=== PATIENT | male | born 1960 | race Caucasian/White ===

== ENCOUNTER → 2024-07-01 13:57 | Outpatient (REF) | payer OTHER, SELFPAY | LOC: RAD 13:57 | PROVIDERS: ATTENDING PHYSICIAN Psychiatry & Neurology Neurology; FAMILY PHYSICIAN Family Medicine | DX: H49.01 Third [oculomotor] nerve palsy, right eye (principal) | CPT/HCPCS: 93880 ==

== ENCOUNTER → 2024-08-05 10:12 | Outpatient (REF) | payer OTHER, SELFPAY | LOC: PAVMRI 10:12 | PROVIDERS: ATTENDING PHYSICIAN Psychiatry & Neurology Neurology; FAMILY PHYSICIAN Family Medicine | DX: H49.01 Third [oculomotor] nerve palsy, right eye (principal) | CPT/HCPCS: 70553; A9575 ==

== ENCOUNTER 2025-02-09 22:28 | Inpatient (IN) | payer OTHER, SELFPAY ==
[2025-02-09 20:20] VITALS: BP 145/67
[2025-02-09 20:57] LABS: Hematocrit 36.7 % (39.0-52.0); Hemoglobin 12.6 g/dL (13.0-18.0); Mean Corp Hgb Conc. 34.3 g/dL (33.0-37.0); Mean Corpuscular Volume 88.6 fL (80.0-94.0); Nucleated Red Blood Cells % 0 % (-); Platelet Count 198 10^3/uL (130-400); Red Cell Dist. Width 14.1 % (11.5-14.5)
--- NOTE | 2025-02-09 21:02 | HPS.HSE ---
Family Physician
-
Family Physician:
Chief Complaint
-
Dizzyness, near syncope, nausea.
History of Present Illness
64 y/o male with IDDM, HTN and HLD presenting with an episode of dizzyness/near syncope. The patient reports that he has been feeling poorly, including an episode of GI upset including vomiting one week ago during vacation in [place]. The
patient also suffered from a tooth ache which was somewhat severe on vacation. He saw a dentist in [place], who recommended extracting the tooth or a course of penicillin until he returned to [place]. The patient opted for PCN and returned to [place]. He
underwent tooth extraction this afternoon. As the local anesthesia was wearing off, the patient developed some nausea and decided to walk upstairs to lay down. While ascending the stairs, he reports feeling dizzy and falling to the ground. He
denies losing consciousness. Given his constellation of symptoms, he elected to call EMS and come to [facility] ER. In the ER, EKG shows inferior/inferolateral STEMI. The patient denies explicit anginal chest pain. He reports very mild discomfort with
deep inspiration. He denies prior cardiac history.
Medical History
Past Medical History
Past Medical History: Reports HTN, Hypercholesterolemia and IDDM
Past Surgical History: Reports None
Social History
Tobacco: Non-smoker
Alcohol: Occasional
Drug: None
Personal:
Living: With Family
Family History
Family History: Not pertinent
Allergies / Home Medications
Allergies reflects when Allergies were last updated in [employer].
Home Medications with original date entered in [employer]
Allergy/Medication List:
Home Medications:
Aspirin 81 mg daily.
Atorvastatin 80 mg daily.
Insulin.
Lisinopril 5 mg daily.
Allergies:
Metformin.
Review of Systems
-
History Source: Patient and Family
Constitutional: Reports Fatigue
EENT: Reports Other (Tooth ache, s/p recent extraction (earlier today).)
Respiratory: Reports No Symptoms
Cardiac: Reports No Symptoms
Abdomen/GI: Reports Nausea and Vomiting
: Reports No Symptoms
Musculoskeletal: Reports No Symptoms
Skin: Reports No Symptoms
Neurological: Reports Dizzy
Physical Exam
Vital Signs
Vital Signs
Temp Pulse Resp BP Pulse Ox
37.1 C 58 16 145/67 97
02/09/25 20:20 02/09/25 20:20 02/09/25 20:20 02/09/25 20:20 02/09/25 20:20
Physical Exam
General: Well Developed, Well Nourished, No Apparent Distress, Comfortable, Conversant and Obese
HEENT: NormoCephalic, Anicteric, Moist mucous membranes, Atraumatic, Good Dentition (Recently removed tooth [ ].), PERRLA, Glandorf Conjunctivae, No Ptosis, Nose Appears Normal and Ears Appear Normal
Respiratory: Clear and Non Labored Respirations
Cardiac: S1/S2 and Regular Rhythm
Breast: Deferred by me
GI: Soft, Non Tender, Non Distended, Normal Bowel Sounds and No Hepatosplenomegaly
Rectal: Deferred by Provider
Genito-urinary: Deferred by me
Musculoskeletal: No Clubbing, No Cyanosis and No Edema
Skin: Warm and Dry
Neuro: AO x 3, No Motor Deficits and Nonfocal/grossly intact
Hematologic/Lymphatic: No Lymphadenopathy
Psych: Calm and Intact Judgment/Insight
Laboratory Results
-
02/09/25 20:47
Data Reviewed
-
Diagnostic Radiology: Report Reviewed by me
Medical Tests (Nuc Med, Echo, EKG etc): Image Personally Visualized and interpreted and Report Reviewed by me
Lab Data: Labs Reviewed by me
Impression/Plan
-
Impression/Plan: 64 y/o male with HTN, HLD, IDDM presenting with dizzyness/near syncope and EKG showing inferior/inferolateral STEMI.
#STEMI
-Acute, threat to life.
-Chest pain free but diabetes may mask symptoms.
-Heparin, aspirin given in ER.
-Plan for emergent coronary angiography with ad hoc PCI.
-Consent is signed and on the chart.
-Further instructions to follow.
#Dizzyness/near syncope
-Acute, unclear etiology.
-Possibly vestibular from recent dental instrumentation vs. aborted VT/VF?
-Monitor on telemetry.
#HTN
-Chronic.
-Restart home antihypertensives when indicated.
#HLD
-Chronic.
-Fasting lipid panel.
-Continue atorvastatin 80 mg daily.
-Goal LDL < 55.
#IDDM2
-Chronic.
-Large insulin dose required.
-Convert to formulary post cath.
[2025-02-09 21:07] LABS: INR 1.05; PT 14.2 Sec (11.4-14.6)
[2025-02-09 21:08] LABS: APTT 29.9 Sec (23.4-35.0)
[2025-02-09 21:15] LABS: ALT (SGPT) 82 U/L (0-50); AST (SGOT) 54 U/L (17-59); Albumin 3.8 g/dl (3.5-5.0); Alkaline Phosphatase 62 U/L (38-126); Blood Urea Nitrogen 19 mg/dl (9-20); Calcium 8.7 mg/dl (8.4-10.2); Carbon Dioxide 25 mmol/L (22-30); Chloride 104 mmol/L (98-107); Glucose 115 mg/dl (70-99); Potassium 4.1 mmol/L (3.5-5.1); Sodium 134 mmol/L (135-145); Total Protein 6.3 g/dl (6.3-8.2); eGFR > 60.00
[2025-02-09 21:29] LABS: Troponin I 5.300 ng/ml
--- NOTE | 2025-02-09 21:34 | ED.GENMED ---
History of Present Illness
General
Chief Complaint: Fainting/Passed Out
Time Seen by Provider: 02/09/25 20:47
History of Present Illness
History of Present Illness:
64-year-old male with history of diabetes, hypertension, hyperlipidemia, and TIA presenting to the emergency department after syncopal episode. Patient reports that he has generally been feeling unwell in the past week, lightheaded, dizzy,
nauseous. He had a tooth extracted earlier today, left lower mandible region. He denies complications from the extraction. Around 7 PM he went upstairs, was feeling lightheaded and fell to the ground, did strike his head, however denies any true
loss of consciousness. Denies any known history of cardiac disease. Does report some chest pain with deep inspiration, left chest. Denies difficulty breathing. Denies any fevers. He called his primary care doctor advised to come to the hospital
given the report of the fall and head strike. No additional history obtained at this time
Phy Exam
Physical Exam
Physical Exam:
General: Well-appearing, no clinical signs of dehydration, nontoxic and in no acute distress
HEENT: protecting airway, status post tooth extraction to left lower mandible, no bleeding
Neck: appears supple
CV: Normal heart rate, regular rhythm
Resp: No accessory muscle use, no increased work of breathing, lungs clear to auscultation bilaterally
Abd: Soft and non-distended, no tenderness to palpation
Extremities: No deformities, no swelling
Neuro: alert, no focal neurologic deficit
: deferred
Rectal: deferred
Psych: Normal affect
Skin: Intact
Course
Orders/Labs/Results
Orders:
Orders
02/09/25 20:28
Electrocardiogram (*1) Urgent
Reason for Study: Vertigo / Dizzy
02/09/25 20:29
EKG- Treatment ONCE
02/09/25 20:47
Complete Blood Count/With Diff Urgent
Comprehensive Metabolic Panel Urgent
Protime/PTT Stat
Troponin I Urgent
Abnormal Lab Results
02/09/25
20:47
WBC 12.9 H 10^3/uL
(4.8-10.8)
RBC 4.14 L 10^6/uL
(4.70-6.10)
Hgb 12.6 L g/dL
(13.0-18.0)
Hct 36.7 L %
(39.0-52.0)
Abs Immat Gran (auto) 0.1 H 10^3/uL
(0-0.05)
Absolute Neuts (auto) 10.8 H 10^3/uL
(1.4-6.5)
Absolute Monos (auto) 0.8 H 10^3/uL
(0.1-0.6)
Neutrophils % 83.7 H %
(42.2-75.2)
Lymphocytes % 9.1 L %
(20.5-51.1)
Sodium 134 L mmol/L
(135-145)
Glucose 115 H mg/dl
(70-99)
Total Bilirubin 1.6 H mg/dl
(0.2-1.3)
ALT 82 H U/L
(0-50)
Troponin I 5.300 H* ng/ml
02/09/25 20:47
02/09/25 20:47
Vital Signs
Initial and Last Documented VS:
Initial Vital Signs
Temp Pulse Resp BP Pulse Ox
98.7 F 58 16 145/67 97
02/09/25 20:20 02/09/25 20:20 02/09/25 20:20 02/09/25 20:20 02/09/25 20:20
Last Documented Vital Signs
Temp Pulse Resp BP Pulse Ox
98.7 F 58 16 145/67 97
02/09/25 20:20 02/09/25 20:20 02/09/25 20:20 02/09/25 20:20 02/09/25 20:20
MDM/Problems Addressed
MDM/Problems Addressed:
64-year-old male with history of diabetes, hypertension, hyperlipidemia, TIA presenting after syncopal episode with lightheadedness, dizziness, chest pain with deep inspiration. Vital signs on arrival are normal.
EKG obtained in triage given patient's presenting complaints. EKG was immediately interpreted by me. Concern for acute STEMI. Patient brought back to examination room and STEMI alert was called. Cardiology soon at bedside. Aspirin administered
as well as heparin. No signs of head trauma, no focal neurologic deficits. Does report that he struck his head prior to arrival, however without present concern for acute intracranial abnormality. More concerning and pressing issue is patient's
acute STEMI. Plan for cardiac intervention and admission.
*Pulse Oximetry
SaO2: 97
Oxygen Mode of Delivery: Room air
Patient hypoxic: no
*EKG
Interpreted by ED Provider?: Yes
EKG Intrepretation Date: 02/09/25
EKG Intrepretation Time: 21:36
Interpretation: abnormal (inferior STEMI)
Heart Rate: 58
Rate: bradycardiac
Rhythm: sinus
[place]: normal axis
Interval: normal interval
QRS Pattern: normal QRS
Ischemia: ST elevation
*Critical Care Note
Total Time (30-74mins, 75-104mins- exclusive of procedures): Not Applicable
ED Attending Note
-
Portions of this chart may have been created with voice recognition software.� Occasional wrong word or��sound alike� substitutions may have occurred due to the inherent limitations of voice recognition software.
Discharge Plan
Departure
Patient Disposition: Admit
Date of Disposition: 02/09/25
Time of Disposition: 20:57
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
Presentation/result/management discussed w/ accepting MD/DO: cardiology
Patient with high blood pressure during this ER visit?: No
Condition: Critical
Discharge Problem:
ST elevation (STEMI) myocardial infarction, Syncope
Prescriptions:
No Action
atorvastatin 80 mg Tablet
80 mg PO DAILY
insulin aspart U-100 [Novolog U-100 Insulin aspart] 100 unit/mL Solution
1 sliding scale dose SC AC
Rx Instructions:
14units for breakfast, 14units lunch, 26units diner
aspirin [Adult Low Dose Aspirin] 81 mg Tablet
81 mg PO DAILY
lisinopril 5 mg Tablet
5 mg PO DAILY
insulin degludec [Tresiba FlexTouch U-100] 100 unit/mL (3 mL) Insulin Pen
96 unit SC DAILY
Interventions
Interventions:
*Risk Screen - Suicide Last Done: 02/09/25 20:20
*General Assessment Last Done: 02/09/25 20:20
*Neglect/Abuse Screening Last Done: 02/09/25 20:20
*ED COVID-19 Vaccine History Last Done: 02/09/25 20:20
*Nursing Disposition Last Done: 02/09/25 21:26
ED- Cardiac Assessment Last Done: 02/09/25 21:00
ED- Neurological Assessment Last Done: 02/09/25 21:00
Discharge Date and Time
Print Language: [place]
[2025-02-09 21:44] LABS: ACT-LR - POC 340 Seconds (116-155)
[2025-02-09 22:04] LABS: ACT-LR - POC 239 Seconds (116-155)
[2025-02-09 22:20] LABS: ACT-LR - POC 339 Seconds (116-155)
--- NOTE | 2025-02-09 22:38 | ITS.CL.ANGIO ---
[employer] [facility] - Angioplasty
Angioplasty
Procedure Report:
CARDIAC CATHETERIZATION REPORT
Date of Procedure: 02/09/2025
Referring: Emergency room.
INDICATION: Inferior ST elevation myocardial infarction
PROCEDURE:
1. Left heart catheterization.
2. Coronary angiography.
3. Successful PCI of the culprit proximal RCA occlusion.
4. Successful IVUS guided PCI of the proximal/ostial RCA.
A total of 58 minutes of procedural/moderate sedation was utilized. An independent medical specialist was present to assist with and help manage the patient's level of consciousness and physiologic status.
ACCESS:
1. 6 Swazi right radial artery using a modified Seldinger technique.
CATHETERS:
1. 5 Swazi JR4.
2. 5 Swazi JL 3 point.
3. 6 Swazi JR 4 guiding catheter.
HEMODYNAMIC DATA
Weight (kg): 109.2
AO (s/d/x, mmHg): 126/73/93
LV (s/x mmHg): 127/23
LEFT VENTRICULOGRAPHY: Not performed.
CORONARY ANGIOGRAPHY
Dominance: Right.
Left Main: Normal size, bifurcating vessel. There is no coronary artery disease
LAD: Normal size vessel giving rise to 1 large diagonal. There is a 70+% lesion in the proximal LAD.
[place]amus: Congenitally absent.
Circumflex: Normal size, nondominant vessel that is essentially a single large obtuse marginal with an upper and lower branch. There is a 40% lesion in the proximal circumflex. There are luminal irregularities in the lower branch of the obtuse
marginal.
RCA: Normal size, dominant vessel. There is a 70% lesion in the proximal RCA extending to the ostium that is densely calcified. The proximal RCA is acutely, thrombotically occluded. There is a densely calcified, 30% lesion in the distal RCA at
the crux. The RPDA and right posterolateral arcade are moderate to severely and diffusely diseased.
INTERVENTION(S)
1. Successful PCI of the acute, thrombotic 100% occlusion of the proximal RCA (Medtronic [place] 3.0 x 18 DARYL, postdilated with a 3.0 NC balloon followed by 3.25 NC balloon), with reduction in stenosis to 0%, restoring BETTE-3 flow.
2. Successful PCI of the densely calcified 70% proximal RCA lesion extending to the ostium (Medtronic [place] 3.0 x 26 DARYL overlapping with the more distal stent, postdilated with a 3.0 NC balloon followed by a 3.25 NC balloon), with
reduction in stenosis to 0%, maintaining BETTE-3 flow.
Narrative:
The decision was made to proceed with percutaneous coronary intervention. The diagnostic catheter was removed over a wire and a 6Fr JR4 guiding catheter was advanced to the aortic root and seated in the right coronary artery. Additional heparin was
given and a Power Turn Flex wire was advanced into the distal RCA. The acute, thrombotic 100% proximal RCA lesion was predilated with a 2.0 x 12 semi-compliant balloon to 12 cecy, restoring BETTE-3 flow. The semi-compliant balloon was removed and a
Medtronic L[place] 3.0 x 18 drug-eluting stent was advanced. Unfortunately, the stent would not advance into the lesion demonstrating that further predilation was required.
A 3.0 x 12 noncompliant balloon was advanced over the wire and into the proximal RCA. Unfortunately, this too would not cross the lesion. This balloon was withdrawn and a 3.0 x 12 semicompliant balloon was advanced over the wire. Once again, the
the balloon would not advance beyond the lesion. This balloon was withdrawn and a 6 Swazi GuideLiner was advanced over the 2.0 x 12 semicompliant balloon. This balloon was able to traverse the lesion which was dilated again and the GuideLiner was
advanced into good position. With the GuideLiner in place, the 2.0 x 12 semicompliant balloon was withdrawn and the 3.0 x 12 semicompliant balloon was advanced. The lesion was dilated to 12 cecy. The semicompliant balloon was withdrawn and the 3.0
x 18 DARYL was readvanced into the lesion. We were satisfied with the position of our stent, the stent was deployed at 12 cecy. The stent balloon was withdrawn and the 3.0 x 12 NC balloon was readvanced. The stent was postdilated to 15 cecy. The
noncompliant balloon was withdrawn.
The decision was made to perform intracoronary imaging. An IVUS catheter was advanced through the guiding catheter and into the ostium of the artery. Ring down was performed once the imaging crystal was no longer inside of the guiding catheter. The
IVUS catheter was advanced into the proximal RCA, but would not cross beyond the stent threshold. Intravascular ultrasound was performed in a retrograde fashion using a slow pullback. Intracoronary imaging demonstrated severe atherosclerosis within
the proximal RCA including a significant lesion near the ostium of the vessel.
The IVUS catheter was withdrawn. The 3.0 x 12 noncompliant balloon was readvanced into the proximal RCA. The RCA proximal to the stent was dilated to 12 cecy. After completing dilation of the vessel, the GuideLiner was readvanced over the
noncompliant balloon and a sheathing technique.
A Medtronic [place] 3.0 x 26 drug-eluting stent was advanced into the RCA. The GuideLiner was pulled back and meticulous care was taken while positioning the stent. We were satisfied that the distal aspect of the stent was overlapping with
the proximal aspect of the first stent and the proximal aspect of the stent was covering the ostial RCA lesion, the stent was deployed at 12 cecy. The stent balloon was removed. A 3.25 x 12 noncompliant balloon was advanced into the stent and the
entire stented segment was postdilated to 18 atmospheres. The ostial portion of the stent was postdilated to 20 cecy.
Angiography was performed in orthogonal views, confirming good stent expansion and an excellent angiographic result. The coronary wire was withdrawn and the guide was disengaged from the artery. The catheter was removed over a standard J-wire.
Closure Device: Vascular band.
Radiation (mGy): 1050.32
DAP (cm2.Gy): 65.8950
Fluoroscopy time (minutes): 14.9
CONCLUSIONS
1. Right dominant circulation with a 70+% lesion in the proximal LAD, 40% lesion in the proximal circumflex, and acute, thrombotic occlusion of the proximal RCA status post successful PCI (Medtronic [place] 3.0 x 18 DARYL, postdilated with a
3.0 and 3.25 NC balloon) and a densely calcified 70% lesion in the proximal RCA extending to the ostium, status post successful IVUS guided PCI (Medtronic [place] 3.0 x 26 DARYL, postdilated with a 3.0 and 3.25 NC balloon) with reduction in both
stenoses to 0%, restoring BETTE-3 flow.
2. Moderately elevated filling pressures (LVEDP = 23 mmHg at 109.2 kg).
RECOMMENDATIONS:
1. Expectant management after cardiac catheterization via right radial approach.
2. Limited weight bearing on the right for one week.
3. Dual antiplatelet therapy with aspirin anticoagulant for at least 12 months, followed by aspirin indefinitely.
4. Aggressive secondary prevention with high-dose, high potency statin. Goal LDL <55.
5. OMT/GDMT as hemodynamics will tolerate.
6. Echocardiogram ordered and pending.
7. Referral to cardiac rehab.
8. Tentative plan to return to the cardiac [facility] in 48 hours for reevaluation and likely PCI of the proximal LAD lesion.
Copy to: Landon Crawford D.O.
Landon Crawford DO, FACC, FACP
[2025-02-09 22:45] VITALS: BP 170/89
[2025-02-09 22:46] LABS: Glucose - Point of Care 136 mg/dl (70-99)
[2025-02-09 23:00] VITALS: BP 169/94
[2025-02-09 23:15] VITALS: BP 165/100
[2025-02-09 23:30] VITALS: BP 163/98
--- NOTE | 2025-02-09 23:52 | PTCARENOTE ---
Pt rec'd post cath awake,alert tearful. Seen by Dr Crawford in room to explain findings of cath. awake,alert no c/o dizziness or nausea. Pt had tooth extracted this morning bottom left denies pain. Sinus on telemetry with occ pvc's noted. no c/o pain
in back of head from earlier fall , no bruising noted.
right radial site with R band in place. weak but palpable pulse with no active bleeding or hematoma noted. c/o numbness in right thumb.
call [facility] within reach
[2025-02-10] VITALS (8 sets, daily range): BP systolic 124–172; BP diastolic 60–93
[2025-02-10 02:59] LABS: Hematocrit 37.3 % (39.0-52.0); Hemoglobin 12.6 g/dL (13.0-18.0); Mean Corp Hgb Conc. 33.8 g/dL (33.0-37.0); Mean Corpuscular Volume 88.6 fL (80.0-94.0); Platelet Count 200 10^3/uL (130-400); Red Cell Dist. Width 14.0 % (11.5-14.5)
[2025-02-10 03:36] LABS: Blood Urea Nitrogen 20 mg/dl (9-20); Calcium 9.2 mg/dl (8.4-10.2); Carbon Dioxide 24 mmol/L (22-30); Chloride 105 mmol/L (98-107); Glucose 181 mg/dl (70-99); Potassium 4.2 mmol/L (3.5-5.1); Sodium 135 mmol/L (135-145); eGFR > 60.00
[2025-02-10 03:43] LABS: Troponin I 13.800 ng/ml
[2025-02-10 04:22] LABS: Hepatitis C Antibody Negative (Negative)
[2025-02-10] MEDS: TYLENOL 650 MG PO ×4 (05:13→20:19)
[2025-02-10 08:25] LABS: Glucose - Point of Care 123 mg/dl (70-99)
[2025-02-10] MEDS: LIPITOR 80 MG PO (08:43)
[2025-02-10] MEDS: NOVOLOG FLEXPEN-MODERATE RESISTANCE SC ×2 (08:43→12:59)
[2025-02-10] MEDS: LANTUS 0.96 UNITS SC (08:43)
[2025-02-10] MEDS: TOPROL XL 25 MG PO (08:44)
[2025-02-10] MEDS: LOW STRENGTH ASPIRIN 81 MG PO (08:44)
[2025-02-10] MEDS: BRILINTA 90 MG PO ×2 (08:44→20:20)
[2025-02-10 09:34] LABS: Troponin I 11.100 ng/ml
--- NOTE | 2025-02-10 09:43 | W.PN.CD ---
Today's Communication / Plan
-
Echo pending
monitor tele
Impression / Plan
-
Impression/Plan: 64 y/o male with HTN, HLD, IDDM presenting with dizziness/near syncope and EKG showing inferior/inferolateral STEMI.
#STEMI s/p DARYL to RCA
- DAPT
- LDL < 55 atorva 80 rx'ed
- echo pending
-cardiac rehab referral
- Dr Crawford will decide on possible intervention of LAD
#Dizziness/near syncope
-Acute, unclear etiology--> so far no recurrence
-Possibly vestibular from recent dental instrumentation vs. aborted VT/VF?
-Monitor on telemetry.
#HTN
-Chronic.
-restart lisinopril 5
- metop xl 25 mg
#HLD
-Chronic.
-Fasting lipid panel pending
-Continue atorvastatin 80 mg daily.
-Goal LDL < 55.
#IDDM2
-Chronic.
-Large insulin dose required.
-Convert to formulary post cath.
Subjective: feeling improved
Physical Exam
Vital Signs/Labs
Vital Signs
Temp Pulse Resp BP Pulse Ox
98.7 F 72 16 149/78 94
02/10/25 07:34 02/10/25 08:44 02/10/25 07:34 02/10/25 08:44 02/10/25 07:34
02/09/25 02/10/25 02/11/25
06:59 06:59 06:59
Actual Weight 231 lb 11.293 oz
02/10/25 02:47
02/10/25 02:47
PT 14.2 Sec (11.4-14.6) 02/09/25 20:47
INR 1.05 02/09/25 20:47
APTT 29.9 Sec (23.4-35.0) 02/09/25 20:47
LAB Results
02/09/25 02/09/25 02/10/25
20:47 22:30 02:47
Troponin I 5.300 H* Cancelled 13.800 H* D
02/10/25
08:52
Troponin I 11.100 H*
Physical Exam
Constitutional: No acute distress and Comfortable
EENT: Anicteric
Cardiovascular: Rhythm & rate is regular and Pedal edema is absent
Respiratory: Respiratory effort normal and Lungs clear to auscul.
GI: Soft
Neuro/Psych: AO x 3
Other: Cath Site (c/d/i 2+ pulse)
Data Reviewed
-
Date of Service: February 10, 2025
Medical Decision Making: Reviewed Test Results
EKG: Tracing Personally Visualized and interpreted (sr)
Echo: Tracing Personally Visualized and interpreted
Labs: Labs Reviewed by me
--- NOTE | 2025-02-10 09:54 | CM ---
Reviewed chart. Met with Mr. Green to review discharge plans. He states prior to admission he resides with his spouse in a spilt level home with three steps to enter. He states he has seven steps to get to bedroom/full bathroom. He states he
has six steps to get to the lower level. He states prior to admission he was independent with ambulation and adls. He states he stuart not have any DME in the home. He states he has a prescription plan. Medical work-up in progress The discharge plan
is to return home with his spouse when medically stable.
[2025-02-10] MEDS: ZESTRIL 5 MG PO (09:59)
[2025-02-10 10:16] LABS: Glycohemoglobin (HgbA1c) 9.2 % (4.0-5.6)
--- NOTE | 2025-02-10 10:22 | PTCARENOTE ---
received patient this am in bed, instructed patient that he is a fall risk since he fell at home and to use call [facility] whenever he wants to get OOB, patient verbalizes understanding. monitor shows NSR, VSS. troponin drawn 11.1, trending down. left
lower tooth was extracted yesterday, stitch remains intact, no bleeding, Tylenol po given for discomfort. no straws being used. I asked the patient several times to confirm the amount of insulin that he takes in am, patient stated, 'yes, I have been
taking that dose every morning.' right radial dsg. D/I ,distal pulse palpable.
--- NOTE | 2025-02-10 11:40 | PTCARENOTE ---
echo completed in department.
[2025-02-10 12:32] LABS: Glucose - Point of Care 122 mg/dl (70-99)
[2025-02-10 17:10] LABS: Glucose - Point of Care 176 mg/dl (70-99)
[2025-02-10] MEDS: NOVOLOG FLEXPEN-MODERATE RESISTANCE 1 UNITS SC (17:10)
[2025-02-10 22:02] LABS: Glucose - Point of Care 215 mg/dl (70-99)
[2025-02-11] VITALS (9 sets, daily range): BP systolic 135–178; BP diastolic 67–96
--- NOTE | 2025-02-11 01:00 | PTCARENOTE ---
Received pt at change of shift resting in bed. SR on tele, HR in the 60's. pt denies any CP or SOB. Right radial site C.D.I. No bleeding or hematoma noted at this time. pt educated on NPO status after midnight. pt verbalizes understanding. PRN
Tylenol administered per pt request for 3/10 pain from left lower tooth extraction. Educated pt to call RN with any questions/concerns. Call [facility] within reach.
[2025-02-11] MEDS: TYLENOL 650 MG PO ×4 (03:28→20:14)
[2025-02-11 04:19] LABS: Hematocrit 35.6 % (39.0-52.0); Hemoglobin 12.0 g/dL (13.0-18.0); Mean Corp Hgb Conc. 33.7 g/dL (33.0-37.0); Mean Corpuscular Volume 88.3 fL (80.0-94.0); Platelet Count 198 10^3/uL (130-400); Red Cell Dist. Width 14.1 % (11.5-14.5)
[2025-02-11 04:42] LABS: Blood Urea Nitrogen 16 mg/dl (9-20); Calcium 8.9 mg/dl (8.4-10.2); Carbon Dioxide 25 mmol/L (22-30); Chloride 108 mmol/L (98-107); Estimated Creatinine Clearance 89 ml/min; Glucose 138 mg/dl (70-99); HDL Cholesterol 31 mg/dl; LDL Cholesterol, Calculated 157 mg/dl; Potassium 4.1 mmol/L (3.5-5.1); Sodium 136 mmol/L (135-145); Very Low Density Lipoprotein 24 mg/dl (0-30); eGFR > 60.00
[2025-02-11 07:05] LABS: Glucose - Point of Care 123 mg/dl (70-99)
--- NOTE | 2025-02-11 07:31 | W.PN.CD ---
Today's Communication / Plan
-
Start ezetimibe 10 mg daily.
D/C metoprolol.
Start carvedilol 3.125 mg BID.
NPO.
NADIYA.
Impression / Plan
-
Impression/Plan: 64 y/o male with HTN, HLD, IDDM presenting with dizziness/near syncope and EKG showing inferior/inferolateral STEMI.
#STEMI
-Acute.
-S/P overlapping Xience Skypoint 3.0 x 18, 3.0 x 23 DARYL to proximal/ostial RCA, post dilated with 3.25 NCB with reduction in stenosis to 0%, restoring BETTE III flow.
-Troponin peaked at 13.8.
-Echo shows hypokinesis of inferior base, low normal LVEF (50-55%).
-DAPT with ASA/Ticagrelor x 12 months.
#CAD
-Chronic, progressive.
-Cath shows residual 70+% lesion in the pLAD, 40% lesion in the proximal LCx. Further review revealed an 80-90% lesion in the LCx, not previously appreciated.
-High dose, high potency statin. Goal LDL < 55.
-Will review with CTS. No role for repeat cath given 2V CAD. The question is now method of revascularization (PCI, MIDCAB + PCI, traditional CABG). This will be highly dependent on NADIYA findings.
#Mitral valve echo density
-New diagnosis.
-NADIYA.
-Review with CTS.
#Dizziness/near syncope
-Acute, unclear etiology--> so far no recurrence
-Possibly vestibular from recent dental instrumentation vs. aborted VT/VF?
-Monitor on telemetry.
#HTN
-Chronic, mildly uncontrolled.
-Continue lisinopril.
-Convert metoprolol to carvedilol 3.125 mg BID.
#HLD
-Chronic.
-Total cholesterol = 212, LDL = 157, HDL = 31, Triglycerides = 121.
-Continue atorvastatin 80 mg daily. Add ezetimibe. He will need outpatient PCSK9i.
-Goal LDL < 55.
#IDDM2
-Chronic.
-HbA1c = 9.2%
-Large insulin dose required.
-He would benefit from GLP-1 analog at discharge.
Subjective/Interval History:
Feels well.
Echo shows a hypermobile echo density on the mitral apparatus.
DATA:
Cardiac Catheterization/PCI, 02/09/2025:
CONCLUSIONS
1. Right dominant circulation with a 70+% lesion in the proximal LAD, 40% lesion in the proximal circumflex, and acute, thrombotic occlusion of the proximal RCA status post successful PCI (Medtronic [place] 3.0 x 18 DARYL, postdilated with a
3.0 and 3.25 NC balloon) and a densely calcified 70% lesion in the proximal RCA extending to the ostium, status post successful IVUS guided PCI (Medtronic [place] 3.0 x 26 DARYL, postdilated with a 3.0 and 3.25 NC balloon) with reduction in both
stenoses to 0%, restoring BETTE-3 flow.
2. Moderately elevated filling pressures (LVEDP = 23 mmHg at 109.2 kg).
TTE, 02/11/2028:
CONCLUSIONS
Low normal left ventricular systolic function. LVEF 50-55%.
Hypokinesis of the basal to mid inferior, inferolateral and inferoseptal chinchilla.
Focal calcification of the anterior mitral valve leaflet. Hypermobile
echodensity attached to the chordal apparatus (view 45).
Aortic sclerosis.
No prior study available for comparison.
Physical Exam
Vital Signs/Labs
Vital Signs
Temp Pulse Resp BP Pulse Ox
37.1 C 67 16 156/85 97
02/11/25 06:58 02/11/25 06:58 02/11/25 06:58 02/11/25 03:26 02/11/25 06:58
02/09/25 02/10/25 02/11/25
11:59 11:59 11:59
Actual Weight 105.1 kg
02/11/25 04:06
02/11/25 04:06
PT 14.2 Sec (11.4-14.6) 02/09/25 20:47
INR 1.05 02/09/25 20:47
APTT 29.9 Sec (23.4-35.0) 02/09/25 20:47
Triglycerides 121 mg/dl (10-149) 02/11/25 04:06
LDL Cholesterol, Calc 157 mg/dl 02/11/25 04:06
VLDL Cholesterol, Calc 24 mg/dl (0-30) 02/11/25 04:06
HDL Cholesterol 31 mg/dl 02/11/25 04:06
LAB Results
02/09/25 02/09/25 02/10/25
20:47 22:30 02:47
Troponin I 5.300 H* Cancelled 13.800 H* D
02/10/25 02/10/25 02/10/25
08:52 14:30 20:30
Troponin I 11.100 H* Cancelled Cancelled
Physical Exam
Constitutional: No acute distress and Comfortable
EENT: Anicteric and Moist mucous membranes
Cardiovascular: Rhythm & rate is regular, Pedal edema is absent, JVD pressure is normal, S1S2 is normal and Murmur/rub/gallop absent
Respiratory: Respiratory effort normal, Lungs clear to auscul., Wheeze Absent, Crackles Absent and Rhonchi Absent
GI: Soft, Distention absent, Flat, Non tender and Normal bowel sounds
Neuro/Psych: AO x 3
Other: Cath Site (Right radial access site is C/D/I.)
Data Reviewed
-
Date of Service: February 11, 2025
Medical Decision Making: Reviewed Test Results, Independent Historian Assessment and Test Interpretation
EKG: Tracing Personally Visualized and interpreted and Report Reviewed by me
Echo: Tracing Personally Visualized and interpreted and Report Reviewed by me
X-Ray/CT/US/MRI/NUC/PET: Image Personally Visualized and interpreted, Report Reviewed by me and Discussed with Physician
Medical Tests (PFT, Pathology etc): Image Personally Visualized and interpreted, Report Reviewed by me, Discussed with Physician and Discussed with Patient
Labs: Labs Reviewed by me
[2025-02-11] MEDS: NOVOLOG FLEXPEN-MODERATE RESISTANCE SC ×3 (08:00→17:37)
--- NOTE | 2025-02-11 10:54 | W.PN.UPDATE ---
Update Note
Progress Note Update
-NADIYA today was negative for endocarditis.
[2025-02-11] MEDS: LIPITOR 80 MG PO (11:00)
[2025-02-11] MEDS: COREG 3.125 MG PO ×2 (11:01→20:14)
[2025-02-11] MEDS: LOW STRENGTH ASPIRIN 81 MG PO (11:01)
[2025-02-11] MEDS: ZETIA 10 MG PO (11:01)
[2025-02-11] MEDS: BRILINTA 90 MG PO ×2 (11:02→20:14)
--- NOTE | 2025-02-11 11:03 | PN.DE.MGMTRT ---
Insulin Management
- -
02/11/2025 Diabetes Management Consult
Patient admitted 02/09 with dizziness, near syncope, nausea - inferior/inferolater STEMI. Diabetes Management consult 02/11/2025. PMH diabetes, HTN, HLD. Prior to admission was taking Tresiba 92 units daily in AM with novolog 14 units with
breakfast and lunch and 26 units with dinner. A1C on admission 9.2%, cr 1, eGFR > 60.
Patient is awake alert and oriented, just returned from NADIYA. Able to discuss diabetes care, at bedside supportive.
Patient states he has had diabetes ~ 15 years, follow with CSO @ [facility] endocrine office for ongoing diabetes care. He is using the [employer] G7 CGM.
Glucose yesterday 96 to 215. Received corrective insulin with meals and 96 units of lantus in AM. Fasting glucose this AM 138 venous and 123 POC.
Patient to resume 1800 calorie diet, will reduce AC novolog to 10 units with breakfast and lunch and 18 units with dinner. Will start Farxiga 10 mg daily, first dose now.
Discussed with nurse and cardiology.
Will follow.
Diabetes History
- -
Type of Diabetes: 2 requiring insulin
Pre-Admission Diabetes Regimen
02/11/25
04:06
Creatinine 1.0
Lab Results
Hemoglobin A1c 9.2 % (4.0-5.6) H 02/10/25 02:47
Insulin Pump Settings
IP Diabetes Regimen
02/10/25 02/10/25 02/10/25
12:30 17:09 22:00
Glucose
POC Glucose 122 H 176 H 215 H
02/11/25 02/11/25
04:06 07:04
Glucose 138 H
POC Glucose 123 H
Meal type: Dinner
Meal type: Lunch
Amount consumed: 90%
Amount consumed: 100%
Patient Education
[2025-02-11 11:18] LABS: Glucose - Point of Care 100 mg/dl (70-99)
[2025-02-11] MEDS: FARXIGA 10 MG PO (11:39)
--- NOTE | 2025-02-11 11:39 | CM ---
Reviewed chart. Met with Mr and Mrs. Green to review discharge plans. He states he is feeling okay. Telephone call to [employer] to check on co-pay for Brilinta 90 mg po bid. His co-pay for Brilinta 90 mg po bid is $50.00 a month. The Ticagrelor 90
mg po bid is $15.00 a month. He is agreeable to the $15.00 a month Ticagrelor. Asked N.P to sent script to his pharmacy. Prior to admission he resides with his spouse in a spilt level home with three steps to enter. He has seven steps to get to
bedroom/full bathroom. He has six steps to get to the lower level. Prior to admission he was independent with ambulation and adls. He has a prescription plan with [employer] and uses [facility]. Medical work-up in progress. The discharge plan is to
return home with his spouse when medically stable.
[2025-02-11] MEDS: NOVOLOG FLEXPEN 10 UNITS SC (12:00)
[2025-02-11] MEDS: LANTUS 0.96 UNITS SC (12:00)
--- NOTE | 2025-02-11 12:32 | PTCARENOTE ---
Received pt post NADIYA/CV. VSS. Pt c/o minimal sore throat. Offerred treatment. Pt states that he is ok. Will monitor.
[2025-02-11 17:29] LABS: Glucose - Point of Care 92 mg/dl (70-99)
[2025-02-11] MEDS: NOVOLOG FLEXPEN 18 UNITS SC (18:15)
[2025-02-11 22:33] LABS: Glucose - Point of Care 69 mg/dl (70-99)
[2025-02-11 23:09] LABS: Glucose - Point of Care 90 mg/dl (70-99)
--- NOTE | 2025-02-11 23:28 | PTCARENOTE ---
Assumed care of the pt @ 1900. Pt is AAOx3 SR on the monitor VSS. C/o tooth pain Tylenol given. Call ruvalcaba within reach
--- NOTE | 2025-02-11 23:30 | GLUCOSE ---
SITUATION: Pt called and asked to check BS -69
BACKGROUND: PMH - IDDM, HTN and HLD presenting with an episode of dizzyness/near syncope. STEMI Alert 02/09 2 stents RCA
ASSESSMENT: Diaphoretic but AAOX3
RECOMMENDATION:Pt was given CHIQUITA and conrad barriga. Repeat bs 90. Will recheck at 0100 and 0300.
[2025-02-12 01:04] LABS: Glucose - Point of Care 161 mg/dl (70-99)
[2025-02-12 02:58] VITALS: BP 167/93
[2025-02-12 02:59] VITALS: BP 167/92
[2025-02-12 03:01] LABS: Glucose - Point of Care 147 mg/dl (70-99)
[2025-02-12] MEDS: TYLENOL 650 MG PO ×2 (03:10→10:15)
[2025-02-12 04:01] LABS: Hematocrit 36.5 % (39.0-52.0); Hemoglobin 12.3 g/dL (13.0-18.0); Mean Corp Hgb Conc. 33.7 g/dL (33.0-37.0); Mean Corpuscular Volume 88.6 fL (80.0-94.0); Platelet Count 222 10^3/uL (130-400); Red Cell Dist. Width 13.8 % (11.5-14.5)
[2025-02-12 04:05] LABS: Blood Urea Nitrogen 13 mg/dl (9-20); Calcium 8.8 mg/dl (8.4-10.2); Carbon Dioxide 25 mmol/L (22-30); Chloride 107 mmol/L (98-107); Estimated Creatinine Clearance 81 ml/min; Glucose 143 mg/dl (70-99); Potassium 4.4 mmol/L (3.5-5.1); Sodium 138 mmol/L (135-145); eGFR > 60.00
[2025-02-12 06:00] VITALS: BMI 33.9
[2025-02-12 07:47] VITALS: BP 152/83
[2025-02-12 07:49] LABS: Glucose - Point of Care 65 mg/dl (70-99)
--- NOTE | 2025-02-12 08:02 | PN.DE.MGMTRT ---
Insulin Management
- -
02/12/2025 Diabetes Management Consult Follow up
Patient admitted 02/09 with dizziness, near syncope, nausea - inferior/inferolater STEMI. Diabetes Management consult 02/11/2025. PMH diabetes, HTN, HLD. Prior to admission was taking Tresiba 92 units daily in AM with novolog 14 units with
breakfast and lunch and 26 units with dinner. A1C on admission 9.2%, cr 1, eGFR > 60.
Patient is awake alert and oriented, OOB in chair eating breakfast. Able to discuss diabetes care, at bedside supportive.
Patient states he has had diabetes ~ 15 years, follow with [employer] @ [facility] endocrine office for ongoing diabetes care. He is using the [employer] G7 CGM.
Glucose yesterday 69 to 161. Received corrective insulin with meals and 90 units of lantus in AM. HS glucose 69, treated then 90. 3AM glucose 143 venous. Fasting glucose this AM 65.
Will further reduce AC novolog to 8 units with breakfast and lunch and 15 units with dinner, reduce AM lantus to 90 units. Will continue Farxiga 10 mg daily.
Discussed with patient and dietary choices. Patient states for breakfast he would eat a piece of ham and regular pepsi for breakfast. Lengthy discussion regarding better food choices and importance of consistency in amount of carbohydrate and
quality of carbohydrate. The both verbalized understanding.
Discussed with nurse.
Will follow.
Diabetes History
- -
Type of Diabetes: 2 requiring insulin
Pre-Admission Diabetes Regimen
02/12/25
03:06
Creatinine 1.1
Lab Results
Hemoglobin A1c 9.2 % (4.0-5.6) H 02/10/25 02:47
Insulin Pump Settings
IP Diabetes Regimen
02/11/25 02/11/25 02/11/25
11:17 17:21 22:32
Glucose
POC Glucose 100 H 92 69 L
02/11/25 02/12/25 02/12/25
23:08 01:03 03:00
Glucose
POC Glucose 90 161 H 147 H
02/12/25 02/12/25
03:06 07:44
Glucose 143 H
POC Glucose 65 L
Meal type: Dinner
Amount consumed: 100%
Patient Education
[2025-02-12 08:07] LABS: Glucose - Point of Care 82 mg/dl (70-99)
[2025-02-12] MEDS: NOVOLOG FLEXPEN-MODERATE RESISTANCE SC ×2 (08:10→12:11)
[2025-02-12] MEDS: COREG 3.125 MG PO (08:12)
[2025-02-12] MEDS: LIPITOR 80 MG PO (08:13)
[2025-02-12] MEDS: LOW STRENGTH ASPIRIN 81 MG PO (08:13)
[2025-02-12] MEDS: FARXIGA 10 MG PO (08:13)
[2025-02-12] MEDS: BRILINTA 90 MG PO (08:13)
[2025-02-12] MEDS: ZETIA 10 MG PO (08:13)
[2025-02-12] MEDS: NOVOLOG FLEXPEN SC (08:38)
[2025-02-12] MEDS: LANTUS SC (08:39)
[2025-02-12] MEDS: NOVOLOG FLEXPEN 8 UNITS SC ×2 (08:40→12:12)
--- NOTE | 2025-02-12 08:40 | PTCARENOTE ---
Pt w/ blood glucose 65. [place] juice 8 oz and gram crackers given. Repeat blood glucose 85. Pt eating breakfast. Will monitor.
--- NOTE | 2025-02-12 08:45 | CM ---
Addendum entered by Claire Roberts 02/12/25 10:33:
Telephone call to [facility] to check on co-pays for Wegovy 0.25 mg is $50.00 a month or $100.00 for three months. Ozempic co-pay is also $50.00 a month or $100.00 for three months and Rybelus 3 mg po daily is also $50.00 a month and $100.00
for three months.
Addendum entered by Claire Roberts 02/12/25 09:34:
Telephone call to [facility] to confirm his Ticagrelor is ready for picker operator. It is ready for pick-up with co-pay of $15.00 a month.
Original Note:
Reviewed chart. Telephone call to [employer] to check on co-pay for Farxiga 10 mg po daily. His co-pay for Farxiga 10 mg is $50.00a month. The generic Dapogliflozin is not covered under his plan. He has commercial insurance and he can use the
free Farxiga coupon. Placed the one month coupon in his red discharge folder. Prior to admission he resides with his spouse in a spilt level house with three steps to enter. He has seven steps to get to bedroom/full bathroom. He has six steps to
get to the lower level. Prior to admission he was independent with ambulation and adls. He does not have any DME in the home. He has a prescription plan and uses [facility]. Medical work-up in progress. The discharge plan is to return home
with his spouse when medically stable.
--- NOTE | 2025-02-12 09:05 | W.PN.CD ---
Today's Communication / Plan
-
S. Epidermis in BCx is likely a contaminant.
Maintain DAPT for the moment.
Outpatient CTS consult to evaluate methods of revascularization (traditional CABG vs. MIDCAB + PCI).
Continue carvedilol.
Start losartan 25 mg daily.
Continue atorvastatin and ezetimibe. Outpatient PCSK9.
Continue dapagliflozin.
Outpatient GLP1 analog.
Discharge today.
Impression / Plan
-
Impression/Plan: 64 y/o male with HTN, HLD, IDDM presenting with dizziness/near syncope and EKG showing inferior/inferolateral STEMI.
#STEMI
-Acute.
-S/P overlapping Xience [place] 3.0 x 18, 3.0 x 23 DARYL to proximal/ostial RCA, post dilated with 3.25 NCB with reduction in stenosis to 0%, restoring BETTE III flow.
-Troponin peaked at 13.8.
-Echo shows hypokinesis of inferior base, low normal LVEF (50-55%).
-DAPT with ASA/Ticagrelor x 12 months.
#CAD
-Chronic, progressive.
-Cath shows residual 70+% lesion in the pLAD, 40% lesion in the proximal LCx and an 80-90% lesion in the LCx.
-High dose, high potency statin. Goal LDL < 55.
-The question is now method of revascularization (PCI, MIDCAB + PCI, traditional CABG).
-Outpatient CTS appointment.
#Mitral valve echo density
-New diagnosis.
-NADIYA shows calcified mitral valve tip, no endocarditis.
-BCx shows Staphylococcus epidermis. This is likely contaminant. Repeat Cx pending.
#Dizziness/near syncope
-Acute.
-Possibly vestibular from recent dental instrumentation vs. aborted VT/VF?
-No VT/VF or heart block on telemetry.
#HTN
-Chronic, uncontrolled.
-Continue carvedilol 3.125 mg BID.
-He reports that lisinopril was recently discontinued in favor of losartan.
-Start losartan 25 mg daily.
#HLD
-Chronic.
-Total cholesterol = 212, LDL = 157, HDL = 31, Triglycerides = 121.
-Continue atorvastatin 80 mg daily and ezetimibe. He will need outpatient PCSK9i.
-Goal LDL < 55.
#IDDM2
-Chronic.
-HbA1c = 9.2%
-Large insulin dose required.
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 Dapagliflozin started.
-He would benefit from GLP-1 analog at discharge.
Subjective/Interval History:
GPC's in 1/2 BCx yesterday - speciated as S. epidermis.
Cultures repeated.
Does not appear septic. NADIYA was negative for obvious IE (calcified mitral leaflet tip, no valve destruction).
DATA:
Cardiac Catheterization/PCI, 02/09/2025:
CONCLUSIONS
1. Right dominant circulation with a 70+% lesion in the proximal LAD, 40% lesion in the proximal circumflex, and acute, thrombotic occlusion of the proximal RCA status post successful PCI (Medtronic [place] 3.0 x 18 DARYL, postdilated with a
3.0 and 3.25 NC balloon) and a densely calcified 70% lesion in the proximal RCA extending to the ostium, status post successful IVUS guided PCI (Medtronic [place] 3.0 x 26 DARYL, postdilated with a 3.0 and 3.25 NC balloon) with reduction in both
stenoses to 0%, restoring BETTE-3 flow.
2. Moderately elevated filling pressures (LVEDP = 23 mmHg at 109.2 kg).
TTE, 02/11/2028:
CONCLUSIONS
Low normal left ventricular systolic function. LVEF 50-55%.
Hypokinesis of the basal to mid inferior, inferolateral and inferoseptal chinchilla.
Focal calcification of the anterior mitral valve leaflet. Hypermobile
echodensity attached to the chordal apparatus (view 45).
Aortic sclerosis.
No prior study available for comparison.
Physical Exam
Vital Signs/Labs
Vital Signs
Temp Pulse Resp BP Pulse Ox
36.6 C 73 20 152/83 98
02/12/25 07:46 02/12/25 08:12 02/12/25 07:46 02/12/25 08:12 02/12/25 07:46
02/10/25 02/11/25 02/12/25
11:59 11:59 11:59
Actual Weight 105.1 kg 104 kg
02/12/25 03:06
02/12/25 03:06
PT 14.2 Sec (11.4-14.6) 02/09/25 20:47
INR 1.05 02/09/25 20:47
APTT 29.9 Sec (23.4-35.0) 02/09/25 20:47
Triglycerides 121 mg/dl (10-149) 02/11/25 04:06
LDL Cholesterol, Calc 157 mg/dl 02/11/25 04:06
VLDL Cholesterol, Calc 24 mg/dl (0-30) 02/11/25 04:06
HDL Cholesterol 31 mg/dl 02/11/25 04:06
LAB Results
02/09/25 02/09/25 02/10/25
20:47 22:30 02:47
Troponin I 5.300 H* Cancelled 13.800 H* D
02/10/25 02/10/25 02/10/25
08:52 14:30 20:30
Troponin I 11.100 H* Cancelled Cancelled
Physical Exam
Constitutional: No acute distress and Comfortable
EENT: Anicteric and Moist mucous membranes
Cardiovascular: Rhythm & rate is regular, Pedal edema is absent, JVD pressure is normal, S1S2 is normal and Murmur/rub/gallop absent
Respiratory: Respiratory effort normal, Lungs clear to auscul., Wheeze Absent, Crackles Absent and Rhonchi Absent
GI: Soft, Distention absent, Flat, Non tender and Normal bowel sounds
Neuro/Psych: AO x 3
Data Reviewed
-
Date of Service: February 12, 2025
Medical Decision Making: Reviewed Test Results, Independent Historian Assessment and Test Interpretation
EKG: Tracing Personally Visualized and interpreted and Report Reviewed by me
Echo: Tracing Personally Visualized and interpreted and Report Reviewed by me
X-Ray/CT/US/MRI/NUC/PET: Image Personally Visualized and interpreted and Report Reviewed by me
Medical Tests (PFT, Pathology etc): Image Personally Visualized and interpreted and Report Reviewed by me
Labs: Labs Reviewed by me
Old Records: Reviewed
[2025-02-12] MEDS: LANTUS 0.9 UNITS SC (11:22)
[2025-02-12 11:53] LABS: Glucose - Point of Care 86 mg/dl (70-99)
[2025-02-12 12:08] VITALS: BP 165/110
[2025-02-12 12:10] VITALS: BP 179/98
--- NOTE | 2025-02-12 14:30 | W.DS.TRANS ---
DC Summary - Mapping Technician
-
Discharge Instructions:
Discharge Diagnosis/Procedures STEMI
Procedure: Cardiac catheterization 02/09/2025
Diet Low Cholesterol,Diabetic, Carb Controlled
Activity No strenuous activity
Additional Activity See attached instructions
Driving Restrictions As prior to admission
Bathing Restrictions OK to Shower
Other Services Cardiac Rehab
Instructions:
Stand-Alone Forms: DC Instructions- Cath/EP Lab
Changes to Home Medications: Yes
Discharge Medications:
DC Medications w/original date entered in [facility]
aspirin 81 mg tablet 81 mg PO DAILY Blood Clot Prevention/Tx 02/09/25
atorvastatin 80 mg tablet 80 mg PO DAILY High Cholesterol 02/09/25
insulin aspart U-100 100 unit/mL subcutaneous solution (Novolog U-100 Insulin aspart) 1 sliding scale dose SC AC Diabetes 02/09/25
insulin degludec 100 unit/mL (3 mL) subcutaneous pen (Tresiba FlexTouch U-100 insulin) 96 unit SC DAILY Diabetes 02/09/25
ticagrelor 90 mg tablet (Brilinta) 90 mg PO BID #60 tabs 02/10/25
carvedilol 3.125 mg tablet 3.125 mg PO BID #60 tabs 02/12/25
dapagliflozin propanediol 10 mg tablet (Farxiga) 10 mg PO DAILY #30 tabs 02/12/25
ezetimibe 10 mg tablet 10 mg PO DAILY #30 tabs 02/12/25
losartan 25 mg tablet 25 mg PO DAILY #30 tabs 02/12/25
semaglutide 0.25 mg or 0.5 mg (2 mg/3 mL) subcutaneous pen injector 0.25 mg (0.368 mL) SC QWEEK Diabetes #3 mL 02/12/25
Home Medication Changes
1. Please stop lisinopril.
2. Please start carvedilol 3.125 mg twice daily.
3. Please start losartan 25 mg daily.
4. Please start dapagliflozin 10 mg daily.
5. Please start ticagrelor 90 mg twice daily. This is the most important medication as it maintains patency of the stent.
6. Please start semaglutide (Ozempic) 0.25 mg subcutaneous injection once per week.
Pending Results: No
[2025-02-12 15:08] VITALS: BP 158/77
[2025-02-12] MEDS: COZAAR 25 MG PO (15:11)
== END 2025-02-12 16:21 | disposition home or self-care (01) | DRG 322 ==
LOC: IVU 22:28
PROVIDERS: Emergency Medicine; Internal Medicine; ADMITTING PHYSICIAN Internal Medicine Cardiovascular Disease; EMERGENCY PHYSICIAN Student in an Organized Health Care Education/Training Program
PROC: 4A023N7 Measurement of Cardiac Sampling and Pressure, Left Heart, Percutaneous Approach (ICD-10-PCS; 2025-02-09)
PROC: B2111ZZ Fluoroscopy of Multiple Coronary Arteries using Low Osmolar Contrast (ICD-10-PCS; 2025-02-09)
PROC: B240ZZ3 Ultrasonography of Single Coronary Artery, Intravascular (ICD-10-PCS; 2025-02-09)
PROC: 027035Z Dilation of Coronary Artery, One Artery with Two Drug-eluting Intraluminal Devices, Percutaneous Approach (ICD-10-PCS; 2025-02-09)
PROC: B24BZZ4 Ultrasonography of Heart with Aorta, Transesophageal (ICD-10-PCS; 2025-02-11)
DX: I21.19 ST elevation (STEMI) myocardial infarction involving other coronary artery of inferior wall (principal); I25.10 Atherosclerotic heart disease of native coronary artery without angina pectoris; I34.81 Nonrheumatic mitral (valve) annulus calcification; E11.9 Type 2 diabetes mellitus without complications; I10 Essential (primary) hypertension; E78.00 Pure hypercholesterolemia, unspecified; Z79.82 Long term (current) use of aspirin; Z79.4 Long term (current) use of insulin; Z86.73 Personal history of transient ischemic attack (TIA), and cerebral infarction without residual deficits
CPT/HCPCS: 80048; 80053; 80061; 82962; 83036; 84484; 85025; 85027; 85347; 85610; 85730; 86803; 87040; 87147; 87154; 87205; 92978; 93005; 93306; 93312; 93320; 93325; 93458; 99152; 99153; 99285; C1725; C1753; C1874; C9606; Q9967

== ENCOUNTER → 2025-03-18 07:08 | Outpatient (REF) | payer OTHER, SELFPAY | LOC: RAD 07:08 | PROVIDERS: ATTENDING PHYSICIAN Thoracic Surgery (Cardiothoracic Vascular Surgery); FAMILY PHYSICIAN Family Medicine | DX: I25.10 Atherosclerotic heart disease of native coronary artery without angina pectoris (principal); Z01.810 Encounter for preprocedural cardiovascular examination | CPT/HCPCS: 71275; Q9967 ==

== ENCOUNTER 2025-03-23 05:08 | Inpatient (IN) | payer OTHER, SELFPAY ==
[2025-03-09 09:34] LABS: Urine Character Clear (Clear)
[2025-03-09 09:36] LABS: Hematocrit 41.9 % (39.0-52.0); Hemoglobin 13.8 g/dL (13.0-18.0); Mean Corp Hgb Conc. 32.9 g/dL (33.0-37.0); Mean Corpuscular Volume 87.5 fL (80.0-94.0); Nucleated Red Blood Cells % 0 % (-); Platelet Count 243 10^3/uL (130-400); Red Cell Dist. Width 13.6 % (11.5-14.5)
[2025-03-09 09:43] LABS: INR 0.98; PT 13.3 Sec (11.4-14.6)
[2025-03-09 10:13] LABS: ALT (SGPT) 31 U/L (0-50); AST (SGOT) 25 U/L (17-59); Albumin 4.4 g/dl (3.5-5.0); Alkaline Phosphatase 60 U/L (38-126); Blood Urea Nitrogen 17 mg/dl (9-20); Calcium 9.6 mg/dl (8.4-10.2); Carbon Dioxide 26 mmol/L (22-30); Chloride 105 mmol/L (98-107); Glucose 105 mg/dl (70-99); Potassium 4.9 mmol/L (3.5-5.1); Sodium 138 mmol/L (135-145); Total Protein 7.3 g/dl (6.3-8.2); eGFR > 60.00
--- NOTE | 2025-03-09 11:30 | CM ---
spoke to pt in PAT's, we discussed preop mid-CABG teaching including lifting and driving restrictions. he is prev indep, lives with his in a splitlevel home with 5 steps toe nter. he denies any dc planning needs. he is agreeable toa f/u visit
form the ct transitional care nurse after dc. he has the ct surgery book, soap and instructions. plan is for mid cab 03/23. cm role explained explained and all questions answered.
[2025-03-09 12:28] VITALS: BMI 34.1
[2025-03-23 05:08] VITALS: BP 137/86
[2025-03-23 05:10] VITALS: BP 139/81
[2025-03-23 05:13] VITALS: BMI 33.9
[2025-03-23 05:14] VITALS: BP 137/86
[2025-03-23] MEDS: LOPRESSOR 25 MG PO (05:56)
[2025-03-23] MEDS: BACTROBAN 2% OINTMENT 1 APPLIC NASAL ×2 (05:56→20:15)
[2025-03-23] MEDS: PROTONIX 40 MG PO (05:57)
[2025-03-23] MEDS: MAGNESIUM OXIDE 400 MG PO (05:57)
--- NOTE | 2025-03-23 06:12 | W.CVOR.SURPR ---
CVOR Surgeon Immed Pre Op
-
I have examined this patient prior to performance of the scheduled procedure.
The patient's condition is unchanged from the time of the dictated/written History and
Physical and the patient is able to undergo the scheduled procedure.
RA MIDCAB
[2025-03-23 08:08] LABS: ACT+ - POC 115 Seconds (82-134)
[2025-03-23 08:11] LABS: Urine Character Clear (Clear)
[2025-03-23 08:14] LABS: B.E. - POC -3.7 mmol/L; Glucose - POC 151 mg/dl (70-99); HCO3 - POC 22 mmol/L (21-28); Hematocrit - POC 37 % PCV (42-52); Hemodilution- POC No; Hemoglobin Calculated - POC 12.6; Ionized Calcium - POC 1.28 mmol/L (1.15-1.33); Lactate - POC 1.20 mmol/L (0.36-0.75); O2 Saturation %Calculated-POC 99.3 % (94-98); PCO2 - POC 40 mmHg (35-48); PO2 - POC 158 mmHg (83-108); POC Comment PRE; Potassium - POC 4.7 mmol/L (3.5-5.1); Sodium - POC 137 mmol/L (136-145); Specimen Type - POC Arterial; pH - POC 7.34 (7.35-7.45)
[2025-03-23 09:56] LABS: ACT+ - POC 463 Seconds (82-134)
[2025-03-23 10:01] LABS: B.E. - POC -6.9 mmol/L; Glucose - POC 205 mg/dl (70-99); HCO3 - POC 21 mmol/L (21-28); Hematocrit - POC 39 % PCV (42-52); Hemodilution- POC No; Hemoglobin Calculated - POC 13.2; Ionized Calcium - POC 1.16 mmol/L (1.15-1.33); Lactate - POC 1.49 mmol/L (0.36-0.75); O2 Saturation %Calculated-POC 96.1 % (94-98); PCO2 - POC 51 mmHg (35-48); PO2 - POC 99 mmHg (83-108); Potassium - POC 6.9 mmol/L (3.5-5.1); Sodium - POC 135 mmol/L (136-145); Specimen Type - POC Arterial; pH - POC 7.23 (7.35-7.45)
[2025-03-23] MEDS: ANCEF 10 IV ×2 (10:37→13:12)
[2025-03-23 10:52] LABS: B.E. - POC -7.2 mmol/L; Glucose - POC 223 mg/dl (70-99); HCO3 - POC 21 mmol/L (21-28); Hematocrit - POC 37 % PCV (42-52); Hemodilution- POC No; Hemoglobin Calculated - POC 12.7; Ionized Calcium - POC 1.21 mmol/L (1.15-1.33); Lactate - POC 1.34 mmol/L (0.36-0.75); O2 Saturation %Calculated-POC 95.0 % (94-98); PCO2 - POC 52 mmHg (35-48); PO2 - POC 92 mmHg (83-108); Potassium - POC 6.8 mmol/L (3.5-5.1); Sodium - POC 137 mmol/L (136-145); Specimen Type - POC Arterial; pH - POC 7.21 (7.35-7.45)
[2025-03-23 10:56] LABS: ACT+ - POC 129 Seconds (82-134)
[2025-03-23 11:07] LABS: B.E. - POC -5.8 mmol/L; Glucose - POC 216 mg/dl (70-99); HCO3 - POC 21 mmol/L (21-28); Hematocrit - POC 36 % PCV (42-52); Hemodilution- POC Yes; Hemoglobin Calculated - POC 12.3; Ionized Calcium - POC 1.14 mmol/L (1.15-1.33); Lactate - POC 1.20 mmol/L (0.36-0.75); O2 Saturation %Calculated-POC 99.8 % (94-98); PCO2 - POC 46 mmHg (35-48); PO2 - POC 270 mmHg (83-108); POC Comment POST; Potassium - POC 6.5 mmol/L (3.5-5.1); Sodium - POC 136 mmol/L (136-145); Specimen Type - POC Arterial; pH - POC 7.27 (7.35-7.45)
--- NOTE | 2025-03-23 11:24 | W.PN.CT.SURG ---
CT Surgery Operative Note
-
CARDIAC SURGERY OPERATIVE REPORT
Preoperative Diagnosis: Coronary Artery Disease with proximal LAD involvement and previous stenting status post PCI
Postoperative Diagnosis: Same
Procedure(s) Performed:
1. Robotic assisted MIDCAB (single-vessel bypass LAZARO in situ to LAD)
2. Robotic assisted harvest of internal mammary artery with anterolateral mini thoracotomy for CABG
3. Transesophageal echocardiography
4. Transonic Flowprobe assessment of LAZARO graft
5. Shingling of fourth rib with reapproximation using plates
Date of Surgery: 03/23/2025
Comorbidities:
1. Coronary artery disease involving the proximal LAD
2. STEMI status post PCI to the inferior wall
3. Hypertension
4. Hyperlipidemia
5. Diabetes type 2
6. Nonrheumatic mitral valve annular calcification
7. Syncope
Attending Surgeon: Paulino Courtney MD, MS
Assistants: Paulino Hutchison PA-C (present and necessary to residential real estate assistant, exchanging robotic instruments, retraction, suction, exposure, suture management, and wound closure under my direction), Donya Braga MD (performed portion of the anastomosis),
Agusto Holland, PGY 2 (cardiac surgery resident)
Anesthesiology: Rik Peoples MD and Harsh Galvin CRNA
Scrub and Circulating RNs: Basia Nicole RN, Tobias Burnett RN
Research Coordinator: Shaq Lara CCP
Anesthesia: GETA
EBL: per perfusion records
Products: None
Indication(s) for Procedures: This is a 65-year-old male who previous presented with a STEMI to the inferior wall. He underwent PCI with successful stent placement. He had residual coronary artery disease and was referred for revascularization.
Given that the distal OM disease was quite far out along the vessel and small, multidisciplinary team discussion was performed to potentially hybrid revascularization. The STS risk was discussed with the patient in the office and the shared decision
making was to pursue a single-vessel bypass using his mammary artery to his LAD via a mini invasive approach.
Conduit(s) Quality/Internal Diameter:
LAZARO -there was some dense scarring towards the proximal portion of the LAZARO vessel to the anterior chest wall, the graft was taken as a semipedicle, flow probe analysis, mean 20 cc/min, PI of 4.4
Target(s) Quality/Internal Diameter:
LAD -accommodated a 1.75 mm shunt, there was some disease proximally at the site of anastomosis but overall decent target
Findings: His left ventricular ejection fraction preoperatively was 55 to 60%. Following surgery his EF remained the same. There were no new regional wall motion abnormalities at the inclusion of the case. The LAZARO was harvested in a skeletonized
fashion. The mammary graft was verified with Doppler probe to have excellent signals. Flow probe analysis is listed as above. His anterior chest wall was relatively thick and deep, in order to access the LAD, I had the shingle of the fourth rib
for exposure. Once the anastomosis was performed flow probe assessment demonstrated a mean flow of approximate 20 cc a minute with a pulse index of 4.4. Once we obtain hemostasis the rib was then reapproximated using a 4 hole gold plate.
Description of Procedure: The patient was taken to the operating room. Their identity and procedure to be performed were verified and they were positioned supine on the operating table. Induction via general anesthesia with endotracheal intubation
was performed and central venous access and arterial monitoring were inserted. A preoperative transesophageal echocardiogram was performed to assess cardiac function and valvular function. The patient was then prepped and draped from chin to feet in
a sterile fashion and positioned with left side bumped up and left arm down. A preoperative time-out was performed with all members of the team present. A Veress needle was used to enter the chest after stopping ventilation with the left lung
verified by anesthesia. We started with slow pressure insufflation which they tolerated. An 8 mm port was inserted in the fourth intercostal space laterally and a camera was inserted verifying no intrathoracic iatrogenic injuries. 2 additional
ports(8 mm and 8mm) were placed along the midaxillary line on either side of the camera port. Single 12 mm air seal port was used for the resident assistant to pass instruments and sutures. The robotic platform was then docked and targeted towards the
mammary. A posterior pericardiotomy was created to facilitate drainage. The mammary was harvested in a skeletonized fashion. Once sufficient length was obtained, an anterior pericardiotomy was created to identify the distal target. This was marked
with a marker robotically. Full heparinization was given (a total of 40,000 units). 4 Hem-o-fransisco clips were used to occlude and divide the mammary distally at its bifurcation, and a single silk suture and clip was used to secure the mammary to the
pericardium overlying the LAD target. The robot platform was then undocked and the patient and a left anterior thoracotomy was created over the target vessel. Upon entering the thoracic cavity the mammary and LAD were visible. A thoracotomy
retractor was placed to facilitate exposure and a pericardial well was created. The rib was then shingled using a cutter. The ACT was confirmed to be over 400.
The cardiac suction stabilizer was used to isolate the LAD target. The distal end of the mammary was prepped and incised on the underbelly. We verified orientation and length of the HANK and found brisk flow. A coronary arteriotomy was created and
enlarged with coronary bolaños scissors. A 2mm shunt was inserted to facilitate exposure and continued three affiliated coronary perfusion. An end-to-side anastomosis was created with a 7-0 prolene. The bulldog on the mammary was removed which demonstrated
excellent graft flow. The shunt was then remove and demonstrated excellent three affiliated flow. Appropriate hemostasis was confirmed. The mammary graft was inspected and was free from kinking or twisting and flowprobe evaluation demonstrated good flow and
PI. A test dose of protamine was administered and the patient was monitored for any adverse reaction before resuming protamine. A 19F brian drain into the pericardium and through the posterior pericardiotomy into the left chest. There was some
bleeding from the rib, and so the camera was re-inserted and it seemd all from the cut edge at the intercostal space, this was cauterized and hemostatic agents were placed. The rib was approximated with a 4-hole gold plate and 10mm screws x 4.
Fascia was approximated with #1 vicryl suture. Local analgesia was administered to the surgical sites. The subcutaneous, dermis and epidermis were closed in layers in a running fashion. The skin wound was cleansed and dressed.
All instrument, sponge, and needle counts were confirmed to be correct x 2 at the end of the operation. The patient was transferred to the cardiac intensive care unit extubated in critical but stable condition.
I, Dr. Paulino Courtney, was present, scrubbed for, and performed all critical elements of this procedure.
Paulino Courtney MD, MS
Cardiothoracic Surgeon
[facility]
This operative dictation was created using the [employer] dictation system. Please excuse any grammatical, typographical, or 'sound alike' errors
--- NOTE | 2025-03-23 11:27 | CM ---
Chart reviewed. Patient is in the OR today. Patient is independent of ADLS, lives with his in a split level, 5 DAYNE, 0 DME. Plan is for the patient to return home with CT Transitional RN. CM to follow
[2025-03-23 11:37] LABS: B.E. - POC -5.8 mmol/L; Glucose - POC 220 mg/dl (70-99); HCO3 - POC 21 mmol/L (21-28); Hematocrit - POC 37 % PCV (42-52); Hemodilution- POC Yes; Hemoglobin Calculated - POC 12.4; Ionized Calcium - POC 1.15 mmol/L (1.15-1.33); Lactate - POC 1.29 mmol/L (0.36-0.75); O2 Saturation %Calculated-POC 99.8 % (94-98); PCO2 - POC 43 mmHg (35-48); PO2 - POC 256 mmHg (83-108); POC Comment CPB; Potassium - POC 6.4 mmol/L (3.5-5.1); Sodium - POC 135 mmol/L (136-145); Specimen Type - POC Arterial; pH - POC 7.29 (7.35-7.45)
--- NOTE | 2025-03-23 12:00 | PTCARENOTE ---
received patient from [facility]. drowsy but extubated. on simple face mask. SR. no wires. cordis with slick. A line zerod. Ctx1 L lateral. draining red. No airleak/crepitus. placed to wall suction. out on insulin per glycemic protocol and cardene to keep
sys BP 90-115. Pulses palpable. no edema. will continue ot monitor.
--- NOTE | 2025-03-23 12:07 | CON.INTV ---
Consultation
Consultation Request
Date/Time Consultation Requested: 03/23/2025 - 112
Date/Time Consultation Performed: 03/23/2025 - 1154
Requesting Provider: Светлана Ji NP
Performing Provider: Dr. Pedraza
Reason for Consultation: s/p MIDCAB
Medical History
-
Chief Complaint: Elective MIDCAB
History of Present Illness:
65-year-old male with a past medical history of multivessel CAD and history of inferior STEMI s/p PCI to RCA with DARYL x2 (02/09/2025), hypertension, DM type II and hypercholesterolemia who presents for elective cardiothoracic CABG. Patient was
recently hospitalized here at from 02/09 - 02/12/[address] elevation [place] involving the RCA and obtain PCI x 2 with DARYL placed. There was additional disease in the proximal LAD with a 70% lesion. He was referred to cardiothoracic
surgery and saw Dr. Courtney in the office on 03/02/2025. Surgical revascularization was recommended and patient consented to this procedure. Today the patient underwent a robotic assisted MIDCAB with single-vessel bypass LAZARO in situ to LAD. There
were no complications and he was transferred to the CVICU after being extubated in the OR. [employer] Prescription Clerk/pulmonary service is now consulted for additional management/recommendations.
I saw the patient he was resting in bed in no acute distress. Heart rate 75, BP 118/59, and saturating 91% on room air. Currently on Cardene drip at 7.5 mg/h, insulin drip at 2.6 units/hr. he feels well, denying shortness of breath, MARINO, nausea,
fevers or chills.
PMHx: Hypertension, DM type II, CAD, hypercholesterolemia
PSHx: Trigger finger surgery, coronary stents x 2
Past Medical History
Past Medical History: Other (Above as per HPI)
Past Surgical History: Other (Above as per HPI)
Social History
Tobacco: Non-smoker
Alcohol: Other (Rarely)
Drug: None
Personal:
Living: With Family
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
Family History
Family History: Cancer (Father (unknown type))
Allergies / Home Medications
Allergies
Allergy/AdvReac Type Severity Reaction Status Date / Time
metformin Allergy Unknown Verified 03/05/25 15:06
Home Medications
�Medication �Instructions �Recorded �Confirmed �Last Taken �Type
aspirin 81 mg tablet 81 mg PO DAILY Blood Clot 02/09/25 03/23/25 03/22/25 08:00 History
Prevention/Tx 81 mg
atorvastatin 80 mg tablet 80 mg PO DAILY High Cholesterol 02/09/25 03/23/25 03/22/25 08:00 History
80 mg
insulin aspart U-100 100 unit/mL 1 sliding scale dose SC AC Diabetes 02/09/25 03/23/25 03/22/25 18:00 History
subcutaneous solution (Novolog 26 units
U-100 Insulin aspart)
insulin degludec 100 unit/mL (3 86 unit SC DAILY Diabetes 02/09/25 03/23/25 03/22/25 08:00 History
mL) subcutaneous pen (Tresiba 86 units
FlexTouch U-100 insulin)
ticagrelor 90 mg tablet (Brilinta) 90 mg PO BID #60 tabs 02/10/25 03/23/25 03/17/25 08:00 Rx
90 mg
carvedilol 3.125 mg tablet 3.125 mg PO BID #60 tabs 02/12/25 03/23/25 03/22/25 08:00 Rx
3.125
dapagliflozin propanediol 10 mg 10 mg PO DAILY #30 tabs 02/12/25 03/23/25 03/19/25 08:00 Rx
tablet (Farxiga) 10 mg
ezetimibe 10 mg tablet 10 mg PO DAILY #30 tabs 02/12/25 03/23/25 03/22/25 08:00 Rx
10 mg
losartan 25 mg tablet 25 mg PO DAILY #30 tabs 02/12/25 03/23/25 03/22/25 08:00 Rx
25 mg
semaglutide 0.25 mg or 0.5 mg (2 0.25 mg SC QWEEK 03/05/25 03/23/25 03/13/25 18:00 History
mg/3 mL) subcutaneous pen injector 0.25 mg
(Ozempic)
Review of Systems
-
History Source: Patient
All other systems: Negative unless noted
Vitals / Labs / Diagnostic Testing
Vital Signs
Temp Pulse Resp BP Pulse Ox
98.2 F 72 22 131/70 90
03/23/25 17:00 03/23/25 17:00 03/23/25 17:00 03/23/25 15:17 03/23/25 17:00
Lab Data
03/23/25 12:10
Laboratory Results
03/23/25
12:10
PT 14.8 H
INR 1.13
APTT 31.1
pH 7.33 L
pCO2 41
pO2 81 L
HCO3 21.6
O2 Delivery Level Not Reportable
Diagnostic Testing:
Physical Exam
-
HEENT: Normocephalic and Anicteric
Cardiovascular: S1/S2, Murmur (ALDO heard best at LUSB) and Peripheral Edema (negative)
Respiratory: Wheeze (negative), Rales (Bibasilar), Rhonchi (negative), Non-Labored Respirations and Other (Left sided chest tube x1)
GI: Soft, Non Distended, Non Tender and Normal Bowel Sounds
Neurology: AO x 3 and Tremors (negative)
Skin: Warm and Dry
General: Respiratory Distress (negative), Comfortable, Fever (negative) and Chills (negative)
Assessment
-
Assessment: 65-year-old male with a past medical history of multivessel CAD and history of inferior STEMI s/p PCI to RCA with DARYL x2 (02/09/2025), hypertension, DM type II and hypercholesterolemia who presents for elective cardiothoracic CABG.
Patient was recently hospitalized here at from 02/09 - 02/12/[address] elevation [place] involving the RCA and obtain PCI x 2 with DARYL placed. There was additional disease in the proximal LAD with a 70% lesion. He was referred to
cardiothoracic surgery and saw Dr. Courtney in the office on 03/02/2025. Surgical revascularization was recommended and patient consented to this procedure. Today the patient underwent a robotic assisted MIDCAB with single-vessel bypass LAZARO in situ to
LAD. There were no complications and he was transferred to the CVICU after being extubated in the OR. [employer] Prescription Clerk/pulmonary service is now consulted for additional management/recommendations.
Chronic conditions SEWING [place] BALER: Hypertension, DM type II, CAD, hypercholesterolemia
Impression:
#CAD with proximal LAD involvement with recent STEMI involving RCA s/p PCI x 2 now s/p robotic assisted MIDCAB (single-vessel bypass LAZARO in situ to LAD � POD #0)
#Hyperglycemia
#Chronic anemia
#Hypertension
#Hyperlipidemia
#DM type II
#Nonrheumatic mitral valve annular calcification
Plan:
Patient was extubated in the OR and is now currently breathing comfortably on room air saturating 91%
Maintain SpO2 >90-94%
prn nebulized bronchodilators - not currently bronchospastic
Encourage incentive spirometer use q1hr while awake
Pressors/antihypertensive/inotropes/diuretics will be provided as needed
Maintain MAP>65
Replete electrolytes with K>4, Mg>2
Monitor chest tube output from left hemithorax
Monitor hemoglobin
Monitor platelet count and coags
Transfuse blood products as needed to maintain Hb>7g/dL, plt>50k (given post-operative status)
CT surgery managing chest tube
Monitor blood sugar to maintain euglycemia with goal BG 110-140
Insulin drip per protocol
Aspiration precautions
DVT prophylaxis
Early nutrition
Early mobilization
Critical care statement: A total of 46 minutes of critical care time was provided for this patient today. This includes management of ventilator, spontaneous breathing trial, arterial blood gases, pressors, of unstable vital signs, evaluation of the
patient at bedside, reviewing the patient's pertinent medical records including radiographs, microbiology, laboratory evaluations, and discussion with primary team and critical care nursing.
[2025-03-23 12:18] LABS: Glucose - Point of Care 196 mg/dl (70-99)
--- NOTE | 2025-03-23 12:24 | W.PN.CD ---
Addendum entered and electronically signed by Tavo Wild MD 03/23/25 17:24:
I saw and examined the patient.
The TAKER OFF HEMP FIBER's note was reviewed and I agree with the note.
Comment: Extubated and responsive
Monitor ECG
Continue routine post-op care
Original Note:
Today's Communication / Plan
-
Post per CTS
Impression / Plan
-
65 y/o male with HTN, hyperlipidemia, IDDM with recent STEMI 01/2025 with RCA-PCI-DARYL and now MIDCAB LAZARO-LAD 03/23.
CAD:
-s/p STEMI 01/2025.
-S/P overlapping [employer]ience Sk[place] 3.0 x 18, 3.0 x 23 DARYL to proximal/ostial RCA, 01/2025, CTS to restart clopidogrel on 03/24.
-s/p MIDCAB 03/23/25 LAZARO-LAD
Mitral valve echo density/Mild MR
-NADIYA shows calcified mitral valve tip, no endocarditis.
HTN
-monitor post op. As OP required multidrug
hyperlipidemia:
-on statin and ezetimibe
IDDM2
-Chronic.
-Post Op insulin protocol.
-HbA1c = 9.2% in 01/2025
Subjective: Pt sedated and vented.
DATA:
Cardiac Catheterization/PCI, 02/09/2025:
CONCLUSIONS
1. Right dominant circulation with a 70+% lesion in the proximal LAD, 40% lesion in the proximal circumflex, and acute, thrombotic occlusion of the proximal RCA status post successful PCI ([employer] [place] 3.0 x 18 DARYL, postdilated with a
3.0 and 3.25 NC balloon) and a densely calcified 70% lesion in the proximal RCA extending to the ostium, status post successful IVUS guided PCI ([employer] [place] 3.0 x 26 DARYL, postdilated with a 3.0 and 3.25 NC balloon) with reduction in both
stenoses to 0%, restoring BETTE-3 flow.
2. Moderately elevated filling pressures (LVEDP = 23 mmHg at 109.2 kg).
TTE, 02/11/2028:
CONCLUSIONS
Low normal left ventricular systolic function. LVEF 50-55%.
Hypokinesis of the basal to mid inferior, inferolateral and inferoseptal chinchilla.
Focal calcification of the anterior mitral valve leaflet. Hypermobile
echodensity attached to the chordal apparatus (view 45).
Aortic sclerosis.
NADIYA 02/11/25
CONCLUSIONS
Left ventricular ejection fraction is 50-55%.
Mildly thickened mitral valve leaflets with focal thickening on the anterior
leaflet. Calcification noted on the chordal structures.
No NADIYA evidence for endocarditis.
Physical Exam
Vital Signs/Labs
Vital Signs
Temp Pulse Resp BP Pulse Ox
98.2 F 87 16 137/86 99
03/23/25 05:14 03/23/25 05:56 03/23/25 05:14 03/23/25 05:56 03/23/25 05:14
03/22/25 03/23/25 03/24/25
06:59 06:59 06:59
Actual Weight 101 kg
PT 13.3 Sec (11.4-14.6) 03/09/25 08:40
INR 0.98 03/09/25 08:40
Physical Exam
Constitutional: No acute distress and Comfortable
Cardiovascular: Rhythm & rate is regular and Pedal edema is absent
Respiratory: Respiratory effort normal and Lungs clear to auscul.
Neuro/Psych: Other (Sedated and vented. )
Other: Skin (L chest incision well approximated. )
Data Reviewed
-
Date of Service: March 23, 2025
EKG: Tracing Personally Visualized and interpreted (NSR 70 bpm, non specific ST abn )
Echo: Report Reviewed by me (NADIYA 02/11/25 -Left ventricular ejection fraction is 50-55%. -Mildly thickened mitral valve leaflets with focal thickening on the anterior leaflet. Calcification noted on the chordal structures. - No NADIYA evidence
for endocarditis.)
Labs: Labs Reviewed by me
[2025-03-23 12:27] LABS: B.E. -4.1 mmol/L; HCO3 21.6 mmol/L (21-28); Hematocrit 36.3 % (39.0-52.0); Hemoglobin 12.3 g/dL (13.0-18.0); O2 Saturation % 96.8 % (94-98); PCO2 41 mmHg (35-48); PO2 81 mmHg (83-108); Platelet Count 239 10^3/uL (130-400)
[2025-03-23 12:36] LABS: Potassium 5.4 mMOL/L (3.5-5.1); Sodium 131 mMOL/L (136-145)
[2025-03-23 12:38] LABS: INR 1.13; PT 14.8 Sec (11.4-14.6)
[2025-03-23 12:39] LABS: APTT 31.1 Sec (23.4-35.0)
[2025-03-23 12:48] LABS: Blood Urea Nitrogen 16 mg/dl (9-20); Estimated Creatinine Clearance 77 ml/min; Glucose 201 mg/dl (70-99); Magnesium 2.0 mg/dl (1.6-2.3)
[2025-03-23] MEDS: CALCIUM GLUCONATE 100 IV (12:55)
[2025-03-23] MEDS: NSS 500 IV (12:56)
[2025-03-23] MEDS: LIPITOR PO (13:04)
[2025-03-23] MEDS: NEURONTIN PO (13:04)
[2025-03-23] MEDS: ZETIA PO (13:13)
[2025-03-23] MEDS: NOVOLOG FLEXPEN SC ×2 (13:17→15:25)
[2025-03-23 13:18] LABS: Glucose - Point of Care 179 mg/dl (70-99)
[2025-03-23] MEDS: DILAUDID 0.25 MG IV ×2 (13:32→18:57)
--- NOTE | 2025-03-23 13:44 | PN.DE.MGMTRT ---
Insulin Management
- -
03/23/2025: Diabetes Management Consult
65 year old male with PMH: CAD, HTN, HLD, IDDM with recent STEMI 01/2025 s/p RCA-PCI-DARYL, now S/P MIDCAB; LAZARO-LAD.
Recent A1C 9.2% in 01/2025. Prior to admission was taking Farxiga 10mg daily, Ozempic weekly, Tresiba 86 units daily in AM with SS NovoLog. Cr 1, eGFR > 60.
Patient is somnolent post anesthesia, unable to interview or collaborate out patient Diabetes regimen, at bedside supportive.
states pt follows with ROPE WALKER @ [facility] endocrine office for ongoing diabetes care and uses a CGM-DexCom G7 for glucose monitoring at home.
Patient is on the Glycemic protocol and will remain on insulin infusion x48 post-op.
Will cont to follow and assess when appropriate to transition to SQ insulin.
Discussed with nurse and cardiology.
Diabetes History
- -
Type of Diabetes: 2 requiring insulin
Pre-Admission Diabetes Regimen
03/23/25
12:10
Creatinine 1.1
Insulin Pump Settings
IP Diabetes Regimen
03/23/25 03/23/25 03/23/25
12:10 12:15 13:17
Glucose 201 H
POC Glucose 196 H 179 H
Meal type: Lunch
Patient Education
[2025-03-23] MEDS: ZOFRAN 4 MG IV (13:48)
[2025-03-23] MEDS: TYLENOL 1000 MG PO ×2 (14:21→21:35)
[2025-03-23 14:27] LABS: Glucose - Point of Care 149 mg/dl (70-99)
[2025-03-23] MEDS: ROXICODONE 5 MG PO ×2 (15:16→21:35)
[2025-03-23] MEDS: NEURONTIN 100 MG PO ×2 (15:17→21:36)
[2025-03-23] MEDS: LOW STRENGTH ASPIRIN 81 MG PO (15:17)
[2025-03-23] MEDS: PACERONE 200 MG PO (15:17)
[2025-03-23] MEDS: ANCEF 5 IV (15:19)
[2025-03-23 15:23] LABS: Glucose - Point of Care 132 mg/dl (70-99)
[2025-03-23 16:51] LABS: Glucose - Point of Care 115 mg/dl (70-99)
[2025-03-23] MEDS: CARDENE 200 IV ×2 (17:04→21:36)
--- NOTE | 2025-03-23 17:46 | PTCARENOTE ---
92% 7L nc. VSS on 10 cardene. medicated for pain. See MAR.
[2025-03-23 19:02] LABS: Glucose - Point of Care 125 mg/dl (70-99)
[2025-03-23 20:13] LABS: B.E. -2.8 mmol/L; HCO3 21.9 mmol/L (21-28); O2 Saturation % 97.6 % (94-98); PCO2 37 mmHg (35-48); PO2 77 mmHg (83-108); Potassium 4.3 mMOL/L (3.5-5.1)
[2025-03-23 20:15] LABS: O2 Therapy 6L NC
[2025-03-23 20:19] LABS: Hematocrit 35.6 % (39.0-52.0); Hemoglobin 12.4 g/dL (13.0-18.0); Platelet Count 227 10^3/uL (130-400)
--- NOTE | 2025-03-23 20:45 | PTCARENOTE ---
Assumed care of pt from joyce RN. Walking rounds completed. Pt AAOx3. PRAKASH. Appropriate. SR on the tele monitor. HR 70s. No wires. BP 120s/60s. Cardene infusing to keep SBP ~90-120. CVP ~teens. Palpable pulses throughout. Trace edema. Pt on 6L NC.
POX 88-91%. PA aware - possibly d/t shunting from the Cardene. ABG ordered. Plan to titrate off Cardene and start nitro if needed. Left lateral CTx1 intact, to -20 suction, and no air-leak noted at this time. Output appropriate. Deep breathing and
IS encouraged. Abdomen nontender. Hypoactive BS. Martínez catheter intact and draining yellow urine. UO low - PA aware. Right IJ cordis w/ SLIC, PIV x1, and right radial a-line intact. All lines leveled, zeroed, and flushed. See worklist for full
nursing assessment and interventions. See MAR for pain medication administration. Pt turned and repositioned in bed. Labs drawn and sent. Call ruvalcaba within reach.
[2025-03-23 21:16] VITALS: BP 115/71
[2025-03-23 21:31] LABS: Glucose - Point of Care 109 mg/dl (70-99)
[2025-03-23] MEDS: COREG 3.125 MG PO (21:35)
[2025-03-23] MEDS: SENOKOT-S 1 TABLET PO (21:35)
[2025-03-23 22:00] VITALS: BP 119/71
[2025-03-23 22:51] LABS: Glucose - Point of Care 108 mg/dl (70-99)
[2025-03-23 23:00] VITALS: BP 121/73
[2025-03-24] VITALS (23 sets, daily range): BP systolic 92–140; BP diastolic 58–109; PULSE 80; O2SAT 94–95; BMI 34.5
--- NOTE | 2025-03-24 | PTCARENOTE ---
Pt reassessed. Pt remains SR on the tele monitor. HR 70s. BP stable. Cardene titrated off. Oxygenation improved. 94-96% on 6 L NC. Left lateral CTx1 intact, to -20 suction, and no airleak noted. Martínez catheter intact and draining yellow urine. UO
remains on lower end. All surgical sites stable. Glycemic protocol followed. Pt repositioned in bed as needed. All lines leveled, zeroed, and flushed. Call ruvalcaba within reach.
[2025-03-24] MEDS: ANCEF 5 IV ×2 (00:28→08:25)
[2025-03-24 01:20] LABS: Glucose - Point of Care 95 mg/dl (70-99)
[2025-03-24 03:14] LABS: Glucose - Point of Care 115 mg/dl (70-99)
[2025-03-24 03:26] LABS: Hematocrit 33.9 % (39.0-52.0); Hemoglobin 11.9 g/dL (13.0-18.0); Mean Corp Hgb Conc. 35.1 g/dL (33.0-37.0); Mean Corpuscular Volume 83.9 fL (80.0-94.0); Platelet Count 214 10^3/uL (130-400); Red Cell Dist. Width 13.8 % (11.5-14.5)
--- NOTE | 2025-03-24 03:41 | W.PN.CT ---
Today's Communication / Plan
-
Plan:
-No major issues overnight. Hemodynamically and neurologically intact
-Weaned off Cardene gtt overnight, remains on insulin gtt per protocol
-U/O since OR 800 mL, MVO2 67.6%
-Monitor chest tube output: L pleural + Med 60/175
-Transitioned back to home Coreg, got a dose last night
-Cont. current meds (ASA, Plavix, Coreg, Amiodarone, Lipitor, Zetia)
-D/C'd SLIC and A-line this AM @ 0545
-Will D/C martinez catheter @ 0600
-Maintain insulin gtt another day per protocol, will renew. Diabetes education/management consulted and following, hgb A1C 9.2
-Will transfer to tele phase tomorrow when off insulin gtt
-Maintain cordis
-Encourage use of IS
-Wean off of O2 as tolerated
-OOB into chair/Ambulate
Assessment / Plan
-
Assessment:
-S/P Robotic assisted MIDCAB (single-vessel bypass LAZARO in situ to LAD)/Robotic assisted harvest of internal mammary artery with anterolateral mini thoracotomy for CABG/ Shingling of fourth rib with reapproximation using plates, by Dr. Courtney, 03/23/25,
pod#1
-Coronary artery disease involving the proximal LAD
-Hx of STEMI S/P PCI with overlapping DARYL to ostial/proximal RCA, 02/09/25
-Hypertension
-Hyperlipidemia
-T2DM (insulin dependent, A1C 9.2)
-Nonrheumatic mitral valve annular calcification
-LVEF 50-55%
-Syncope
-S/p Repair of trigger finger
-Acute postop blood loss/Anemia (stable without blood transfusion)
-Acute postop atelectasis
-Acute postop metabolic acidosis
-Acute postop hyperkalemia
-Acute postop hypoxemia, likely d/t shunting from Cardene gtt
-Acute postop hypovolemia with subsequent hypervolemia
Discussed patient care with: Cardiology, Nursing, Respiratory Therapy, Pharmacy and Care Team
Subjective
Procedure
S/P Robotic assisted MIDCAB (single-vessel bypass LAZARO in situ to LAD)/Robotic assisted harvest of internal mammary artery with anterolateral mini thoracotomy for CABG/ Shingling of fourth rib with reapproximation using plates, by Dr. Courtney, 03/23/25
-
Date of Service: March 24, 2025
Pt c/o incisional pain, otherwise feels well
Objective Data
-
Lab Results
03/24/25 03:12
PT 14.8 Sec (11.4-14.6) H 03/23/25 12:10
INR 1.13 03/23/25 12:10
APTT 31.1 Sec (23.4-35.0) 03/23/25 12:10
Vital Signs
Vital Signs
Temp Pulse Resp BP Pulse Ox
98.6 F 80 15 125/75 93
03/24/25 03:00 03/24/25 03:00 03/24/25 03:00 03/24/25 03:00 03/24/25 03:00
CT Intake/Output/Weight
03/23/25 03/23/25 03/24/25
06:59 18:59 06:59
Intake Total 362.0 / 696.9 334.9 / 696.9
Output Total 300 / 775 475 / 775
Balance 62.0 / -78.1 -140.1 / -78.1
SaO2: 93 (2L)
Physical Exam
-
General: Awake, Oriented and AOx3
Cardiovascular: Regular rate & rhythm, No Murmurs, No Rub and No Gallop
Respiratory: Decreased Breath Sounds (at bases, otherwise clear)
Sternum: Stable
Incision: Clean, Dry, Intact and Dressing Intact
Extremities: No Edema
Data Reviewed
-
Lab Results: Results Reviewed
Medications: Active Meds Reviewed
Chest X-Ray: Report Reviewed and Image Reviewed
ECG: Report Reviewed and Image Reviewed
[2025-03-24 03:47] LABS: Blood Urea Nitrogen 21 mg/dl (9-20); Calcium 9.0 mg/dl (8.4-10.2); Carbon Dioxide 22 mmol/L (22-30); Chloride 106 mmol/L (98-107); Estimated Creatinine Clearance 85 ml/min; Glucose 101 mg/dl (70-99); Magnesium 1.9 mg/dl (1.6-2.3); Potassium 4.6 mmol/L (3.5-5.1); Sodium 134 mmol/L (135-145); eGFR > 60.00
--- NOTE | 2025-03-24 04:12 | PTCARENOTE ---
Pt reassessed. SR on the tele monitor. HR 70s. BP stable. Pt on 2 L NC. POX 94%. CT x1 assessment unchanged. Martínez catheter intact and draining yellow urine. UO improving. All lines leveled, zeroed, and flushed. Labs drawn and sent. Glycemic
protocol followed. Pt repositioned in bed. Call ruvalcaba within reach.
[2025-03-24] MEDS: TYLENOL 1000 MG PO ×3 (05:28→20:32)
[2025-03-24] MEDS: ROXICODONE 5 MG PO (05:29)
[2025-03-24 05:32] LABS: Glucose - Point of Care 104 mg/dl (70-99)
[2025-03-24] MEDS: ZOFRAN 4 MG IV (07:07)
--- NOTE | 2025-03-24 07:08 | W.PN.CD ---
Today's Communication / Plan
-
Routine post operative management.
Incentive spirometry.
Ambulation.
Furosemide 40 mg IV x1.
Resume ticagrelor when deemed safe from a CT surgery perspective.
NPO after MN for staged PCI of OM tomorrow.
Impression / Plan
-
Impression/Plan: 65 y/o male with HTN, hyperlipidemia, IDDM with recent STEMI s/p PCI to proximal RCA (01/2025) admitted for elective MIDCAB LAZARO-LAD.
#CAD:
-Chronic, progressive.
-Hx of STEMI s/P PCI to proximal/ostial RCA (overlapping Medtronic [place] 3.0 x 18 and 3.0 x 26 DARYL, post dilated with a 3.25 NC balloon), 02/09/2025.
-S/P MIDCAB (LAZARO to LAD) with Dr. Courtney, 03/23/25.
-Routine post operative management.
-Continue amiodarone, aspirin, carvedilol.
-Encourage incentive spirometry.
-Ambulation.
-Furosemide 40 mg IV x1 and monitor.
-Residual CAD in the distal LCx. Plan for staged PCI tomorrow.
-NPO after MN.
-Resume ticagrelor when deemed safe from a CT surgery perspective.
#Mitral valve echo density/Mild MR
-Chronic, stable.
-NADIYA shows calcified mitral valve tip, no endocarditis.
#HTN
-Chronic, stable.
-Continue carvedilol 3.125 mg BID.
-Restart losartan when indicated.
#Hyperlipidemia:
-Chronic, stable.
-Resume atorvastatin 80 mg daily and ezetimibe 10 mg daily.
-Goal LDL < 55.
#IDDM2
-Chronic.
-Post Op insulin protocol.
-HbA1c = 9.2% in 01/2025.
Subjective/Interval History:
MID-CAB yesterday.
Weight up 2 kg (103 kg <-- 101 kg).
SaO2 94-96% on 2LNC.
BP stable.
DATA:
Cardiac Catheterization/PCI, 02/09/2025:
CONCLUSIONS
1. Right dominant circulation with a 70+% lesion in the proximal LAD, 40% lesion in the proximal circumflex, and acute, thrombotic occlusion of the proximal RCA status post successful PCI (Medtronic [place] 3.0 x 18 DARYL, postdilated with a
3.0 and 3.25 NC balloon) and a densely calcified 70% lesion in the proximal RCA extending to the ostium, status post successful IVUS guided PCI (Medtronic [place] 3.0 x 26 DARYL, postdilated with a 3.0 and 3.25 NC balloon) with reduction in both
stenoses to 0%, restoring BETTE-3 flow.
2. Moderately elevated filling pressures (LVEDP = 23 mmHg at 109.2 kg).
TTE, 02/11/2028:
CONCLUSIONS
Low normal left ventricular systolic function. LVEF 50-55%.
Hypokinesis of the basal to mid inferior, inferolateral and inferoseptal chinchilla.
Focal calcification of the anterior mitral valve leaflet. Hypermobile
echodensity attached to the chordal apparatus (view 45).
Aortic sclerosis.
NADIYA 02/11/25
CONCLUSIONS
Left ventricular ejection fraction is 50-55%.
Mildly thickened mitral valve leaflets with focal thickening on the anterior
leaflet. Calcification noted on the chordal structures.
No NADIYA evidence for endocarditis.
Physical Exam
Vital Signs/Labs
Vital Signs
Temp Pulse Resp BP Pulse Ox
36.9 C 74 15 116/65 94
03/24/25 05:00 03/24/25 06:40 03/24/25 06:00 03/24/25 06:14 03/24/25 06:40
03/22/25 03/23/25 03/24/25
11:59 11:59 11:59
Actual Weight 101 kg 103 kg
03/24/25 03:12
03/24/25 03:12
PT 14.8 Sec (11.4-14.6) H 03/23/25 12:10
INR 1.13 03/23/25 12:10
APTT 31.1 Sec (23.4-35.0) 03/23/25 12:10
Magnesium 1.9 mg/dl (1.6-2.3) 03/24/25 03:12
Physical Exam
Constitutional: No acute distress and Comfortable
EENT: Anicteric and Moist mucous membranes
Cardiovascular: Rhythm & rate is regular, Pedal edema is absent, JVD pressure is normal, S1S2 is normal and Murmur/rub/gallop absent
Respiratory: Respiratory effort normal, Lungs clear to auscul., Wheeze Absent, Crackles Absent and Rhonchi Absent
GI: Soft, Distention absent, Flat, Non tender and Normal bowel sounds
Neuro/Psych: AO x 3
Data Reviewed
-
Date of Service: March 24, 2025
Medical Decision Making: Reviewed Test Results, Independent Historian Assessment and Test Interpretation
EKG: Tracing Personally Visualized and interpreted and Report Reviewed by me
Echo: Report Reviewed by me
X-Ray/CT/US/MRI/NUC/PET: Image Personally Visualized and interpreted and Report Reviewed by me
Medical Tests (PFT, Pathology etc): Image Personally Visualized and interpreted, Report Reviewed by me and Discussed with Physician
Labs: Labs Reviewed by me
Old Records: Reviewed
[2025-03-24 07:11] LABS: Glucose - Point of Care 118 mg/dl (70-99)
--- NOTE | 2025-03-24 07:41 | PN.DE.MGMTRT ---
Insulin Management
- -
03/24/2025: Diabetes Management Consult Follow up
Patient admitted 03/23 for MIDCAB; LAZARO-LAD. PMH: CAD, HTN, HLD, IDDM with recent STEMI 01/2025 s/p RCA-PCI-DARYL.
Prior to admission was taking Farxiga 10mg daily, Ozempic weekly, Tresiba 86 units daily in AM with NovoLog. Recent A1C 9.2% 01/2025. Cr 1, eGFR > 60.
Patient is awake alert and oriented out of bed in chair, able to discuss diabetes care. at bedside supportive. Patient known to me from 02/09 admission.
He follow with LICENSED VOCATIONAL NURSE @ [facility] endocrine office for ongoing diabetes care and uses a CGM-DexCom G7 for glucose monitoring at home.
Patient is on the Glycemic protocol and will remain on insulin infusion x48 post-op, will assess in AM for readiness to transition to SQ insulin.
Discussed with nurse.
Will follow
Diabetes History
- -
Type of Diabetes: 2 requiring insulin
Pre-Admission Diabetes Regimen
03/23/25 03/24/25
12:10 03:12
Creatinine 1.1 1.0
Insulin Pump Settings
IP Diabetes Regimen
03/23/25 03/23/25 03/23/25
12:10 12:15 13:17
Glucose 201 H
POC Glucose 196 H 179 H
03/23/25 03/23/25 03/23/25
14:26 15:22 16:50
Glucose
POC Glucose 149 H 132 H 115 H
03/23/25 03/23/25 03/23/25
19:00 21:30 22:50
Glucose
POC Glucose 125 H 109 H 108 H
03/24/25 03/24/25 03/24/25
01:18 03:11 03:12
Glucose 101 H
POC Glucose 95 115 H
03/24/25 03/24/25
05:31 07:10
Glucose
POC Glucose 104 H 118 H
Meal type: Lunch
Patient Education
--- NOTE | 2025-03-24 08:10 | W.PN.INTV ---
Today's Communication / Plan
Recommendations
Pain control
Encourage incentive spirometer as tolerated
Continue weaning down insulin drip per protocol with goal BG 110�140
Removal of chest tube per CT surgery team
Hose Cementer/Pulmonary service will continue to follow along while patient remains at CVICU level of care.
Assessment
-
Assessment: 65-year-old male with a past medical history of multivessel CAD and history of inferior STEMI s/p PCI to RCA with DARYL x2 (02/09/2025), hypertension, DM type II and hypercholesterolemia who presents for elective cardiothoracic CABG.
Patient was recently hospitalized here at from 02/09 - 02/12/[address] elevation AK involving the RCA and obtain PCI x 2 with DARYL placed. There was additional disease in the proximal LAD with a 70% lesion. He was referred to
cardiothoracic surgery and saw Dr. Courtney in the office on 03/02/2025. Surgical revascularization was recommended and patient consented to this procedure. Today the patient underwent a robotic assisted MIDCAB with single-vessel bypass LAZARO in situ to
LAD. There were no complications and he was transferred to the CVICU after being extubated in the OR. Hose Cementer/pulmonary service is now consulted for additional management/recommendations.
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
Impression:
#CAD with proximal LAD involvement with recent STEMI involving RCA s/p PCI x 2 now s/p robotic assisted MIDCAB (single-vessel bypass LAZARO in situ to LAD � POD #1)
#Hyperglycemia
#Chronic anemia
#Hypertension
#Hyperlipidemia
#DM type II
#Nonrheumatic mitral valve annular calcification
Plan:
Patient was extubated in the OR on 03/23/2025, and is now currently breathing comfortably on room air saturating 93%
Maintain SpO2 >90-94%
prn nebulized bronchodilators - not currently bronchospastic
Encourage incentive spirometer use q1hr while awake
Pain control - suspect back pain is due to his chest tube
Pressors/antihypertensive/inotropes/diuretics will be provided as needed
Maintain MAP>65
Replete electrolytes with K>4, Mg>2
Monitor chest tube output from left hemithorax
Monitor hemoglobin
Monitor platelet count and coags
Transfuse blood products as needed to maintain Hb>7g/dL, plt>50k (given post-operative status)
CT surgery managing chest tube
Monitor blood sugar to maintain euglycemia with goal BG 110-140
Insulin drip per protocol
Aspiration precautions
DVT prophylaxis
Early nutrition
Early mobilization
Hose Cementer/Pulmonary service will continue to follow along while patient remains at CVICU level of care.
Critical care statement: A total of 38 minutes of critical care time was provided for this patient today. This includes management of ventilator, spontaneous breathing trial, arterial blood gases, pressors, of unstable vital signs, evaluation of the
patient at bedside, reviewing the patient's pertinent medical records including radiographs, microbiology, laboratory evaluations, and discussion with primary team and critical care nursing.
Subjective Dataa
Subjective Data
Date of Service:
Date of Service: March 24, 2025
Chief Complaint: Hose Cementer Follow Up
Subjective:
Wrist patient seen and evaluated this morning. Patient's , Jannet, present at bedside. Patient is currently on insulin drip at 6 units/hr. He endorses left-sided back pain that makes it difficult to take a deep breath. Currently saturating
93% on room air and heart rate 79.
Review of Systems
General: Other (Negative unless mentioned above)
Objective Data
Data Reviewed
Vital Signs / I&O / Oxygen:
Vital Signs
Temp Pulse Resp BP Pulse Ox
97.4 F 75 16 106/62 94
03/24/25 15:30 03/24/25 17:50 03/24/25 15:30 03/24/25 17:00 03/24/25 17:00
Intake and Output
03/23/25 03/24/25 03/25/25
06:59 06:59 06:59
Intake Total 762.8 / 774.1 333.9 / 333.9
Output Total 1030 / 1040 1540 / 1540
Balance -267.2 / -265.9 -1206.1 / -1206.1
SaO2 94
Nasal Cannula flow liters per 2
minute
Physical Exam
General: Respiratory Distress (negative), Pain (left-sided back pain with inspiration), Chills (negative) and Sweats (negative)
HEENT: Normocephalic, Anicteric and Other (R-IJ cordis in place)
Cardiovascular: S1-S2, Rub (present) and Peripheral Edema (negative)
Respiratory: Wheeze (negative), Crackles (negative), Rhonchi (negative), Non-Labored Respirations, Chest Tube (Left hemithorax) and Other (Poor inspiratory effort due to left-sided back pain)
GI: Soft, Non Distended, Non Tender and Normal Bowel Sounds
Neurology: AO x 3 and Tremors (negative)
Skin: Warm, Dry, Cyanosis (negative) and Jaundice (negative)
Labs/Micro/Reports
Lab Data
03/24/25 03:12
03/24/25 03:12
Laboratory Results
03/23/25
20:05
pH 7.38
pCO2 37
pO2 77 L
HCO3 21.9
O2 Delivery Level 6l nc
--- NOTE | 2025-03-24 08:22 | PTCARENOTE ---
received pt from previous rn. Pt sitting in chair at time of assessment. Pt AAOx4, NSR per tel monitor HR 70s. +pulses, trace generalized edema. lungs diminished, pox 97% on 2L NC, CTx1 set to -20cm suction, no air leak, crepitus or tidaling. +bs,
pt DTV @ 1200. pt c/o of nausea. See MAR. all surgical sites intact. CT dressing changed, c/d/i. RIJ Cordis infusing KVO. Insulin infusing per glycemic protocol. PIV x1 intact. plan of care reviewed and questions encouraged. call ruvalcaba within reach.
[2025-03-24] MEDS: BACTROBAN 2% OINTMENT 1 APPLIC NASAL ×2 (08:25→20:31)
[2025-03-24] MEDS: LIDOCAINE 4% PATCH 1 PATCH TOPICAL (08:25)
[2025-03-24] MEDS: LOW STRENGTH ASPIRIN 81 MG PO (08:26)
[2025-03-24] MEDS: LIPITOR 80 MG PO (08:27)
[2025-03-24] MEDS: PROTONIX 40 MG PO (08:27)
[2025-03-24] MEDS: COREG 3.125 MG PO ×2 (08:27→20:31)
[2025-03-24] MEDS: NOVOLOG FLEXPEN SC (08:27)
[2025-03-24] MEDS: PACERONE 200 MG PO ×3 (08:27→20:32)
[2025-03-24] MEDS: ZETIA 10 MG PO (08:27)
[2025-03-24] MEDS: SENOKOT-S 1 TABLET PO (08:27)
[2025-03-24] MEDS: MAGNESIUM OXIDE 400 MG PO ×2 (08:28→20:32)
[2025-03-24] MEDS: NEURONTIN 100 MG PO ×3 (08:29→20:32)
[2025-03-24] MEDS: BRILINTA 90 MG PO ×2 (08:40→20:31)
[2025-03-24 09:07] LABS: Glucose - Point of Care 140 mg/dl (70-99)
[2025-03-24] MEDS: NOVOLIN R INSULIN INFUSION 100 IV (10:55)
[2025-03-24 10:59] LABS: Glucose - Point of Care 174 mg/dl (70-99)
[2025-03-24] MEDS: NOVOLOG FLEXPEN 4 UNITS SC ×2 (11:40→17:10)
--- NOTE | 2025-03-24 12:37 | CM ---
Chart reviewed. Patient OOB sitting in the chair, at bedside. Patient is independent of ADLS, lives with his in a split level, 5 DAYNE, 0 DME. Plan is for the patient to return home with CT Transitional RN. CM to follow
[2025-03-24 13:10] LABS: Glucose - Point of Care 227 mg/dl (70-99)
[2025-03-24 13:12] LABS: Glucose - Point of Care 225 mg/dl (70-99)
[2025-03-24] MEDS: NSS IV (13:28)
[2025-03-24] MEDS: FERRLECIT 110 MG IV (13:34)
[2025-03-24] MEDS: FLEXERIL 5 MG PO (13:34)
--- NOTE | 2025-03-24 13:56 | PTCARENOTE ---
Assumed care of pt from previous RN. AAOx3. NSR on site monitor, HR 70-80s. SpO2 92% on room air. L pleural CT to -20cm suction, no air leak noted. CT dressing CDI. No crepitus noted. Pt still due to void. Bladder scan showed 275mL, will continue
to monitor. R IJ cordis with KVO infusing. Insulin infusing per glycemic protocol. Assessment documented. Pt OOB to chair at this time. Call ruvalcaba in reach, at bedside.
--- NOTE | 2025-03-24 14:42 | W.PN.ANS.POP ---
Anesthesia Post Operative
- Anesthesia Post Op Note
Vital Signs Stable-See Nursing Note: Yes
Airway Patent: Yes
Adequate Pain Control: Yes
Change in Mental Status: No
Current Postoperative Nausea & Vomiting: No
Anesthesia Complications: No
General Anesthetic Recall: No
Unplanned Admission: No
Post Op Hydration Adequate: Yes
[2025-03-24 15:04] LABS: Glucose - Point of Care 240 mg/dl (70-99)
[2025-03-24 15:15] LABS: Glucose - Point of Care 188 mg/dl (70-99)
[2025-03-24] MEDS: THORAZINE 51 MG IV (15:49)
[2025-03-24 16:10] LABS: Glucose - Point of Care 178 mg/dl (70-99)
[2025-03-24] MEDS: ROXICODONE 2.5 MG PO (16:23)
[2025-03-24 17:08] LABS: Glucose - Point of Care 182 mg/dl (70-99)
[2025-03-24] MEDS: LR 250 IV (17:29)
--- NOTE | 2025-03-24 17:45 | PTCARENOTE ---
Pt unable to void since Martínez removal at 0600. Bladder scan at 1355 resulted at 275mL. Repeat bladder scan at 1648 resulted at 363mL. BALANCE WHEEL SCREW HOLE TAPPER aware. 250mL LR bolus ordered.
[2025-03-24 18:05] LABS: Glucose - Point of Care 167 mg/dl (70-99)
--- NOTE | 2025-03-24 18:56 | PTCARENOTE ---
Repeat bladder scan resulted at > 687mL. Pt able to void 300mL. PVR > 475mL. Straight cathed for additional 550mL.
[2025-03-24 19:12] LABS: Glucose - Point of Care 163 mg/dl (70-99)
--- NOTE | 2025-03-24 20:00 | PTCARENOTE ---
assumed care of pt from previous RN. pt A&Ox4, resting in bed at time of assessment. SR on tele-monitor. POX 93% on [address] L NC. L lateral CT to -20cm wall suction, draining sanguineous drainage. no air leaks noted. abd s/n, round, obese. pt due to void
by 0100. all surgical sites stable, CDI. R IJ cordis w/ KVO. PIV intact. plan of care discussed w/ pt, pt in agreement. see worklist for complete nursing assessment, interventions, VS, and I&Os.
[2025-03-24 20:24] LABS: Glucose - Point of Care 146 mg/dl (70-99)
[2025-03-24] MEDS: FLOMAX 0.4 MG PO (20:31)
[2025-03-24] MEDS: REMOVE LIDOCAINE PATCH 1 PATCH REMOVE (20:32)
[2025-03-24] MEDS: SENOKOT-S PO (20:33)
[2025-03-24 22:21] LABS: Glucose - Point of Care 140 mg/dl (70-99)
[2025-03-25] VITALS (28 sets, daily range): BP systolic 105–153; BP diastolic 61–86; PULSE 73; O2SAT 95; BMI 34.7
--- NOTE | 2025-03-25 | PTCARENOTE ---
assessment remains unchanged. VSS. pt able to void in bathroom. NPO for PCI in AM.
[2025-03-25 00:18] LABS: Glucose - Point of Care 128 mg/dl (70-99)
[2025-03-25 01:08] LABS: Glucose - Point of Care 145 mg/dl (70-99)
[2025-03-25 02:20] LABS: Glucose - Point of Care 110 mg/dl (70-99)
[2025-03-25 03:19] LABS: Glucose - Point of Care 95 mg/dl (70-99)
--- NOTE | 2025-03-25 03:30 | PTCARENOTE ---
no acute changes. VSS. AM labs collected and sent.
[2025-03-25 03:42] LABS: Hematocrit 31.7 % (39.0-52.0); Hemoglobin 10.7 g/dL (13.0-18.0); Mean Corp Hgb Conc. 33.8 g/dL (33.0-37.0); Mean Corpuscular Volume 86.1 fL (80.0-94.0); Platelet Count 216 10^3/uL (130-400); Red Cell Dist. Width 14.2 % (11.5-14.5)
[2025-03-25 03:53] LABS: Blood Urea Nitrogen 29 mg/dl (9-20); Calcium 8.8 mg/dl (8.4-10.2); Carbon Dioxide 25 mmol/L (22-30); Chloride 108 mmol/L (98-107); Estimated Creatinine Clearance 78 ml/min; Glucose 92 mg/dl (70-99); Magnesium 2.4 mg/dl (1.6-2.3); Potassium 4.5 mmol/L (3.5-5.1); Sodium 136 mmol/L (135-145); eGFR > 60.00
[2025-03-25 04:17] LABS: Glucose - Point of Care 98 mg/dl (70-99)
[2025-03-25 05:28] LABS: Glucose - Point of Care 113 mg/dl (70-99)
[2025-03-25] MEDS: TYLENOL PO (05:37)
--- NOTE | 2025-03-25 06:44 | W.PN.CT ---
Today's Communication / Plan
-
-pod#2
-no issues overnight
-L pleur CT output 30/170 in 12/24 hrs
-started on Flomax last night after required straight cath. Urinary issues improved - voided 1200 overnight (UO 1200/2600 in 1224 hrs)
-npo today for cath of OM
-current meds (ASA, Brilinta, Lipitor, Coreg, Flomax, Amio, Protonix)
Assessment / Plan
-
Assessment:
-S/P Robotic assisted MIDCAB (single-vessel bypass LAZARO in situ to LAD)/Robotic assisted harvest of internal mammary artery with anterolateral mini thoracotomy for CABG/ Shingling of fourth rib with reapproximation using plates, by Dr. Courtney, 03/23/25,
pod#2
-Coronary artery disease involving the proximal LAD
-Hx of STEMI S/P PCI with overlapping DARYL to ostial/proximal RCA, 02/09/25
-Hypertension
-Hyperlipidemia
-T2DM (insulin dependent, A1C 9.2)
-Nonrheumatic mitral valve annular calcification
-LVEF 50-55%
-Syncope
-S/p Repair of trigger finger
-Acute postop blood loss/Anemia (stable without blood transfusion)
-Acute postop atelectasis
-Acute postop metabolic acidosis
-Acute postop hyperkalemia
-Acute postop hypoxemia, likely d/t shunting from Cardene gtt
-Acute postop hypovolemia with subsequent hypervolemia
Discussed patient care with: Nursing and Care Team
Subjective
Procedure
S/P Robotic assisted MIDCAB (single-vessel bypass LAZARO in situ to LAD)/Robotic assisted harvest of internal mammary artery with anterolateral mini thoracotomy for CABG/ Shingling of fourth rib with reapproximation using plates, by Dr. Courtney, 03/23/25
-
Date of Service: March 25, 2025
Objective Data
-
Lab Results
03/25/25 03:18
03/25/25 03:18
PT 14.8 Sec (11.4-14.6) H 03/23/25 12:10
INR 1.13 03/23/25 12:10
APTT 31.1 Sec (23.4-35.0) 03/23/25 12:10
Vital Signs
Vital Signs
Temp Pulse Resp BP Pulse Ox
98 F 70 12 125/75 95
03/25/25 00:00 03/25/25 06:00 03/25/25 04:00 03/25/25 06:00 03/25/25 06:00
CT Intake/Output/Weight
03/24/25 03/24/25 03/25/25
06:59 18:59 06:59
Intake Total 400.8 / 774.1 333.9 / 505.7 171.8 / 505.7
Output Total 730 / 1040 1540 / 2770 1230 / 2770
Balance -329.2 / -265.9 -1206.1 / -2264.3 -1058.2 / -2264.3
SaO2: 95
Physical Exam
-
General: Awake and AOx3
Cardiovascular: Regular rate & rhythm, No Murmurs and Rub
Respiratory: Decreased Breath Sounds
Sternum: Stable
Incision: Clean, Dry and Intact
Extremities: No Edema
Abdomen: soft, nontender, nondistended, + bowel souns
Data Reviewed
-
Lab Results: Results Reviewed
Medications: Active Meds Reviewed
Chest X-Ray: Report Reviewed and Image Reviewed
ECG: Report Reviewed and Image Reviewed
[2025-03-25 07:00] LABS: Glucose - Point of Care 85 mg/dl (70-99)
--- NOTE | 2025-03-25 07:26 | W.PN.CD ---
Today's Communication / Plan
-
Staged PCI of OM this morning.
DAPT for 12 months.
Discharge planning.
Impression / Plan
-
Impression/Plan: 65 y/o male with HTN, hyperlipidemia, IDDM with recent STEMI s/p PCI to proximal RCA (01/2025) admitted for elective MIDCAB LAZARO-LAD.
#CAD:
-Chronic, progressive.
-Hx of STEMI s/P PCI to proximal/ostial RCA (overlapping Medtronic [place]to [place] 3.0 x 18 and 3.0 x 26 DARYL, post dilated with a 3.25 NC balloon), 02/09/2025.
-S/P MIDCAB (LAZARO to LAD) with Dr. Courtney, 03/23/25.
-Routine post operative management.
-Continue amiodarone, aspirin, carvedilol.
-Encourage incentive spirometry.
-Ambulation.
-Residual CAD in the distal LCx. Plan for staged PCI this morning.
-DAPT with aspirin and ticagrelor for at least 12 months, followed by aspirin indefinitely.
-We will assess LVEDP at cath.
#Mitral valve echo density/Mild MR
-Chronic, stable.
-NADIYA shows calcified mitral valve tip, no endocarditis.
#HTN
-Chronic, stable.
-Continue carvedilol 3.125 mg BID.
-Restart losartan when indicated.
#Hyperlipidemia:
-Chronic, stable.
-Resume atorvastatin 80 mg daily and ezetimibe 10 mg daily.
-Goal LDL < 55.
#IDDM2
-Chronic.
-Post Op insulin protocol.
-HbA1c = 9.2% in 01/2025.
Subjective/Interval History:
Some urinary retention requiring straight cath yesterday.
Tamsulosin started.
Feels well.
Ticagrelor resumed yesterday.
DATA:
Cardiac Catheterization/PCI, 02/09/2025:
CONCLUSIONS
1. Right dominant circulation with a 70+% lesion in the proximal LAD, 40% lesion in the proximal circumflex, and acute, thrombotic occlusion of the proximal RCA status post successful PCI (Medtronic [place] 3.0 x 18 DARYL, postdilated with a
3.0 and 3.25 NC balloon) and a densely calcified 70% lesion in the proximal RCA extending to the ostium, status post successful IVUS guided PCI (Medtronic [place] 3.0 x 26 DARYL, postdilated with a 3.0 and 3.25 NC balloon) with reduction in both
stenoses to 0%, restoring BETTE-3 flow.
2. Moderately elevated filling pressures (LVEDP = 23 mmHg at 109.2 kg).
TTE, 02/11/2028:
CONCLUSIONS
Low normal left ventricular systolic function. LVEF 50-55%.
Hypokinesis of the basal to mid inferior, inferolateral and inferoseptal chinchilla.
Focal calcification of the anterior mitral valve leaflet. Hypermobile
echodensity attached to the chordal apparatus (view 45).
Aortic sclerosis.
NADIYA 02/11/25
CONCLUSIONS
Left ventricular ejection fraction is 50-55%.
Mildly thickened mitral valve leaflets with focal thickening on the anterior
leaflet. Calcification noted on the chordal structures.
No NADIYA evidence for endocarditis.
Physical Exam
Vital Signs/Labs
Vital Signs
Temp Pulse Resp BP Pulse Ox
36.6 C 70 12 125/75 95
03/25/25 00:00 03/25/25 06:00 03/25/25 04:00 03/25/25 06:00 03/25/25 06:46
03/23/25 03/24/25 03/25/25
11:59 11:59 11:59
Actual Weight 101 kg 103 kg 103.6 kg
03/25/25 03:18
03/25/25 03:18
PT 14.8 Sec (11.4-14.6) H 03/23/25 12:10
INR 1.13 03/23/25 12:10
APTT 31.1 Sec (23.4-35.0) 03/23/25 12:10
Magnesium 2.4 mg/dl (1.6-2.3) H 03/25/25 03:18
Physical Exam
Constitutional: No acute distress and Comfortable
EENT: Anicteric and Moist mucous membranes
Cardiovascular: Rhythm & rate is regular, Pedal edema is absent, JVD pressure is normal, S1S2 is normal and Murmur/rub/gallop absent
Respiratory: Respiratory effort normal, Lungs clear to auscul., Wheeze Absent, Crackles Absent and Rhonchi Absent
GI: Soft, Distention absent, Flat, Non tender and Normal bowel sounds
Neuro/Psych: AO x 3
Data Reviewed
-
Date of Service: March 25, 2025
Medical Decision Making: Reviewed Test Results, Independent Historian Assessment and Test Interpretation
EKG: Tracing Personally Visualized and interpreted and Report Reviewed by me
Echo: Report Reviewed by me
X-Ray/CT/US/MRI/NUC/PET: Image Personally Visualized and interpreted and Report Reviewed by me
Medical Tests (PFT, Pathology etc): Image Personally Visualized and interpreted, Report Reviewed by me, Discussed with Physician and Discussed with Patient
Labs: Labs Reviewed by me
Old Records: Reviewed
[2025-03-25] MEDS: NOVOLOG FLEXPEN SC ×2 (07:29→11:28)
--- NOTE | 2025-03-25 07:54 | PN.DE.MGMTRT ---
Insulin Management
- -
03/25/2025: Diabetes Management Follow up
Patient admitted 03/23 for MIDCAB; LAZARO-LAD. PMH: CAD, HTN, HLD, IDDM with recent STEMI 01/2025 s/p RCA-PCI-DARYL.
Prior to admission was taking Farxiga 10mg daily, Ozempic weekly, Tresiba 86 units daily in AM with SS NovoLog. Recent A1C 9.2% 01/2025. Cr 1, eGFR > 60.
Patient is awake alert and oriented out of bed in chair, able to discuss diabetes care. at bedside supportive. Patient known to me from 02/09 admission.
He follows with the WELLNESS SPA MANAGER @ [facility] endocrine office for ongoing diabetes care and uses a CGM-DexCom G7 for glucose monitoring at home.
Patient is on the Glycemic protocol and will remain on insulin infusion for now given plan for PCI this morning.
Will arrange to transition off drip after procedure.
Give Farxiga 10mg daily, 1st dose today. Lantus 50 units(takes 86 units at home) @ 1200, then insulin drip to be turned off 1 hrs after.
Start AC NovoLog 5 units and low corrective with meals.
Discussed with nurse. Will cont to follow
Diabetes History
- -
Type of Diabetes: 2 requiring insulin
Pre-Admission Diabetes Regimen
03/25/25
03:18
Creatinine 1.1
Insulin Pump Settings
IP Diabetes Regimen
03/24/25 03/24/25 03/24/25
09:05 10:57 13:08
Glucose
POC Glucose 140 H 174 H 227 H
03/24/25 03/24/25 03/24/25
13:10 14:15 15:13
Glucose
POC Glucose 225 H 240 H 188 H
03/24/25 03/24/25 03/24/25
16:08 17:07 18:04
Glucose
POC Glucose 178 H 182 H 167 H
03/24/25 03/24/25 03/24/25
19:10 20:22 22:18
Glucose
POC Glucose 163 H 146 H 140 H
03/25/25 03/25/25 03/25/25
00:16 01:07 02:19
Glucose
POC Glucose 128 H 145 H 110 H
03/25/25 03/25/25 03/25/25
03:17 03:18 04:15
Glucose 92
POC Glucose 95 98
03/25/25 03/25/25
05:24 06:59
Glucose
POC Glucose 113 H 85
Patient Education
[2025-03-25] MEDS: LOW STRENGTH ASPIRIN 81 MG PO (08:19)
[2025-03-25] MEDS: COREG 3.125 MG PO ×2 (08:19→19:42)
[2025-03-25] MEDS: BRILINTA 90 MG PO ×2 (08:20→19:43)
[2025-03-25] MEDS: PACERONE 200 MG PO ×3 (08:20→21:55)
[2025-03-25] MEDS: PROTONIX 40 MG PO (08:20)
[2025-03-25] MEDS: NEURONTIN 100 MG PO ×3 (08:20→21:55)
[2025-03-25] MEDS: TYLENOL 650 MG PO (08:20)
[2025-03-25] MEDS: LIPITOR 80 MG PO (08:20)
[2025-03-25] MEDS: ZETIA 10 MG PO (08:20)
[2025-03-25] MEDS: SENOKOT-S 1 TABLET PO ×2 (08:20→19:43)
[2025-03-25] MEDS: BACTROBAN 2% OINTMENT 1 APPLIC NASAL ×2 (08:21→19:42)
[2025-03-25] MEDS: LIDOCAINE 4% PATCH TOPICAL (08:21)
--- NOTE | 2025-03-25 08:27 | W.PN.INTV ---
Today's Communication / Plan
Recommendations
[facility] pending for today
Pain control
Encourage incentive spirometer as tolerated
Continue weaning down insulin drip per protocol with goal BG 110�140
Removal of chest tube per CT surgery team
Stranding Machine Operator/Pulmonary service will continue to follow along while patient remains in CVICU level of care; once transferred to CVICU-telemetry status then we will sign off at that time.
Assessment
-
Assessment: 65-year-old male with a past medical history of multivessel CAD and history of inferior STEMI s/p PCI to RCA with DARYL x2 (02/09/2025), hypertension, DM type II and hypercholesterolemia who presents for elective cardiothoracic CABG.
Patient was recently hospitalized here at from 02/09 - 02/12/[address] elevation VT involving the RCA and obtain PCI x 2 with DARYL placed. There was additional disease in the proximal LAD with a 70% lesion. He was referred to
cardiothoracic surgery and saw Dr. Courtney in the office on 03/02/2025. Surgical revascularization was recommended and patient consented to this procedure. Today the patient underwent a robotic assisted MIDCAB with single-vessel bypass LAZARO in situ to
LAD. There were no complications and he was transferred to the CVICU after being extubated in the OR. Stranding Machine Operator/pulmonary service is now consulted for additional management/recommendations.
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
Impression:
#CAD with proximal LAD involvement with recent STEMI involving RCA s/p PCI x 2 now s/p robotic assisted MIDCAB (single-vessel bypass LAZARO in situ to LAD � POD #2)
#Hyperglycemia - resolved
#Chronic anemia
#Hypertension
#Hyperlipidemia
#DM type II
#Nonrheumatic mitral valve annular calcification
Plan:
Patient was extubated in the OR on 03/23/2025; now requiring 2-3 L/min with sats in low 90s breathing comfortably on room air saturating 93%
Maintain SpO2 >90-94% and wean down supplemental O2 flow rate as tolerated
If resting SaO2 is <96% on room air at rest then check ambulatory pulse oximetry prior to discharge
prn nebulized bronchodilators - not currently bronchospastic
Encourage incentive spirometer use q1hr while awake
Pain control - suspect back pain is due to his chest tube
Pressors/antihypertensive/inotropes/diuretics will be provided as needed
Maintain MAP>65
Replete electrolytes with K>4, Mg>2
Plan for C today
Monitor chest tube output from left hemithorax
Monitor hemoglobin
Monitor platelet count and coags
Transfuse blood products as needed to maintain Hb>7g/dL, plt>50k (given post-operative status)
CT surgery managing chest tube - plan to remove later today
Monitor blood sugar to maintain euglycemia with goal BG 110-140
Insulin drip per protocol - plan to stop today
Aspiration precautions
DVT prophylaxis
Early nutrition
Early mobilization
Stranding Machine Operator/Pulmonary service will continue to follow along while patient remains in CVICU level of care; once transferred to CVICU-telemetry status then we will sign off at that time.
Critical care statement: A total of 42 minutes of critical care time was provided for this patient today. This includes management of ventilator, spontaneous breathing trial, arterial blood gases, pressors, of unstable vital signs, evaluation of the
patient at bedside, reviewing the patient's pertinent medical records including radiographs, microbiology, laboratory evaluations, and discussion with primary team and critical care nursing.
Subjective Dataa
Subjective Data
Date of Service:
Date of Service: March 25, 2025
Chief Complaint: Stranding Machine Operator Follow Up
Subjective:
Patient seen and evaluated this morning. Left mediastinal chest tube in place and he finds it bothersome to his back (left side-posterior). Currently on 3 L/min nasal cannula saturating 90%, heart rate 76 and BP 142/79. Currently on insulin drip
at 0.5 units/hr. Plan for left heart catheterization today. He denies SOB, MARINO, abd pain, N/V/f/c.
Review of Systems
General: Other (Negative unless mentioned above)
Objective Data
Data Reviewed
Vital Signs / I&O / Oxygen:
Vital Signs
Temp Pulse Resp BP Pulse Ox
98.6 F 70 15 121/68 97
03/25/25 07:43 03/25/25 09:15 03/25/25 08:38 03/25/25 09:00 03/25/25 09:18
Intake and Output
03/24/25 03/25/25 03/26/25
06:59 06:59 06:59
Intake Total 762.8 / 774.1 505.7 / 516.2 21.0 / 21.0
Output Total 1030 / 1040 2770 / 2770 400 / 400
Balance -267.2 / -265.9 -2264.3 / -2253.8 -379.0 / -379.0
SaO2 97
Nasal Cannula flow liters per 2
minute
Physical Exam
General: Respiratory Distress (negative), Pain (left-sided back pain with inspiration), Chills (negative) and Sweats (negative)
HEENT: Normocephalic, Anicteric and Other (R-IJ cordis in place)
Cardiovascular: S1-S2, Rub (present) and Peripheral Edema (negative)
Respiratory: Wheeze (negative), Crackles (negative), Rhonchi (negative), Non-Labored Respirations, Chest Tube (Left hemithorax) and Other (Poor inspiratory effort due to left-sided back pain)
GI: Soft, Non Distended, Non Tender and Normal Bowel Sounds
Neurology: AO x 3 and Tremors (negative)
Skin: Warm, Dry, Cyanosis (negative) and Jaundice (negative)
Labs/Micro/Reports
Lab Data
03/25/25 03:18
03/25/25 03:18
[2025-03-25] MEDS: MAGNESIUM OXIDE PO ×2 (08:35→21:02)
[2025-03-25] MEDS: NOVOLIN R INSULIN INFUSION 100 IV (09:06)
[2025-03-25 09:08] LABS: Glucose - Point of Care 110 mg/dl (70-99)
[2025-03-25] MEDS: FARXIGA 10 MG PO (09:12)
--- NOTE | 2025-03-25 09:22 | PTCARENOTE ---
Patient received from production shift supervisor resting in bed, AAO X 3. NSR via cm, SaO2 @ 94% on 2lnc. RIJ Cordis w/kvo infusing. L lateral chest tube to -20cm suction, no air leak appreciated. Insulin infusing peripherally, titrating per glycemic protocol. All
procedural sites stable. Patient assisted oob to bathroom, voided w/out difficulty. Dr. Crawford in room, updated - morning medications to be given. Patient and updated to plan of care for the day, in agreement. See worklist for full assessment
and interventions performed.
--- NOTE | 2025-03-25 09:25 | PTCARENOTE ---
CHELSEA Fan, on unit. Medication orders discussed. Lantus administration to be held until patient returns from procedure.
[2025-03-25 11:04] LABS: Glucose - Point of Care 81 mg/dl (70-99)
--- NOTE | 2025-03-25 11:15 | CM ---
Chart reviewed. Patient is independent of ADLS, lives with his in a split level home, 5 DAYNE, 0 DME. Plan is for the patient to return home with CT Transitional RN. CM to follow
--- NOTE | 2025-03-25 13:03 | ITS.CL.ANGIO ---
Paint Department Supervisor - Angioplasty
Angioplasty
Procedure Report:
CARDIAC CATHETERIZATION REPORT
Date of Procedure: 03/25/2025
Referring: Paulino Courtney M.D.
INDICATION: Staged intervention after MIDCAB.
PROCEDURE:
1. Coronary angiography.
2. Bypass angiography.
3. Successful PCI of the distal OM2.
A total of 52 minutes of procedural/moderate sedation was utilized. An independent registered medical transcriptionist was present to assist with and help manage the patient's level of consciousness and physiologic status.
ACCESS:
1. 6 Moroccan right common femoral artery using a modified Seldinger technique with a micropuncture kit under ultrasound guidance.
CATHETERS:
1. 5 Moroccan JR4.
2. 5 Moroccan HANK.
3. 6 Moroccan EBU 4.0 guiding catheter.
HEMODYNAMIC DATA
Weight (kg): 103.4
AO (s/d/x, mmHg): 127/69/93
LV (s/x mmHg): Not obtained.
LEFT VENTRICULOGRAPHY: Not performed.
CORONARY ANGIOGRAPHY
Dominance: Right.
Left Main: Normal size, bifurcating vessel. There is no coronary artery disease.
LAD: Large size vessel giving rise to 1 significant diagonal. There is a 70% lesion in the proximal vessel. The distal vessel is supplied by patent LAZARO graft.
Ramus: Congenitally absent.
Circumflex: Large size, nondominant vessel giving rise to 2 obtuse marginals. There is a 30% lesion in the proximal circumflex. There is a 90% lesion in the midportion of OM 2 near a branch point of several tributary arteries.
RCA: Normal size, dominant vessel. Patent stents are visible in the proximal and ostial RCA. There is diffuse, moderate disease in the distal RCA and RPDA.
BYPASS GRAFT ANGIOGRAPHY
LAZARO to LAD: Normal size graft with end-to-side anastomosis to the mid LAD. There is no evidence of stenosis or graft degeneration.
INTERVENTION(S)
1. Successful PCI of the 90% mid OM2 lesion (Medtronic [place] Monite[place] 2.5 x 15 DARYL, postdilated with a 2.5 NC balloon throughout and a 3.0 x 8 NC balloon in the proximal margin) with reduction in stenosis to 0%, maintaining BETTE-3 flow in all
branches.
Narrative:
The decision was made to proceed with percutaneous coronary intervention. The diagnostic catheter was removed over a wire and a 6Fr EBU 4.0 guiding catheter was advanced to the aortic root and seated in the left main coronary artery. Additional
heparin was given and a Power Turn Flex wire was advanced into the distal second obtuse marginal. The 90% mid OM2 lesion was predilated with a 2.0 x 12 semi-compliant balloon to 12 cecy. The semi-compliant balloon was removed and a Medtronic Lamberto
Moniteau 2.5 x 15 drug-eluting stent was advanced. The stent was deployed at 12 atmospheres. The stent balloon was removed. A 2.5 x 12 noncompliant balloon was advanced into the stent and the stent was postdilated to 14 atmospheres. The
noncompliant balloon was withdrawn and a 3.0 x 8 noncompliant balloon was advanced. The proximal margin of the stent was postdilated to 14 cecy. Angiography was performed in orthogonal views, confirming good stent expansion and an excellent
angiographic result. The coronary wire was withdrawn and the guide was disengaged from the artery. The catheter was removed over a standard J-wire.
Closure Device: 6 Moroccan Angio-Seal.
Radiation (mGy): 1256.34
DAP (cm2.Gy): 92.8445
Fluoroscopy time (minutes): 12.2
CONCLUSIONS
1. Right dominant circulation with patent stents in the proximal/ostial RCA, moderate diffuse disease in the distal RCA and RPDA, a 70% lesion in the proximal LAD status post prior MIDCAB with a patent LAZARO graft, a 30% lesion in the proximal
circumflex and a 90% lesion in the midportion of a sizable OM 2, status post successful PCI (Medtronic Lamberto [place]ite[place] 2.5 x 15 DARYL, postdilated with a 2.5 NC balloon throughout and a 3.0 x 8 NC balloon in the proximal margin) with reduction in
stenosis to 0%, maintaining BETTE-3 flow in all branches.
RECOMMENDATIONS:
1. Expectant management after cardiac catheterization via right common femoral approach.
2. Limited weight bearing for one week.
3. Dual antiplatelet therapy with aspirin and ticagrelor for at least 12 months, followed by aspirin indefinitely.
4. OMT/GDMT as hemodynamics will tolerate.
5. Aggressive secondary prevention with high-dose, high potency statin. Goal LDL <55.
6. Transfer back to CVICU in stable condition.
Copy to: Landon Crawford D.O., Paulino Courtney M.D., Bradford Benjamin M.D.
Landon Crawford DO, FACC, FACP
[2025-03-25 13:12] LABS: Glucose - Point of Care 104 mg/dl (70-99)
--- NOTE | 2025-03-25 13:15 | PTCARENOTE ---
Patient received from CCL s/p PCI w/stent to OM2. NSR via cm, SaO2 @ 94% on 3lnc. R groin procedural site w/scant drainage, soft, distal pulse palpable. Patient c/o R shoulder pain, medicated for such - ESTELITA updated. to bedside, both updated to
plan for afternoon.
[2025-03-25] MEDS: FLEXERIL 5 MG PO (13:34)
[2025-03-25] MEDS: NSS 1000 IV (13:34)
[2025-03-25] MEDS: NSS IV (13:38)
[2025-03-25] MEDS: TYLENOL 1000 MG PO ×2 (13:44→21:54)
[2025-03-25] MEDS: LANTUS 0.5 UNITS SC (13:44)
[2025-03-25] MEDS: NOVOLOG FLEXPEN 4 UNITS SC (13:47)
[2025-03-25] MEDS: FERRLECIT 110 MG IV (13:47)
[2025-03-25] MEDS: FLOMAX 0.4 MG PO (15:03)
[2025-03-25 15:04] LABS: Glucose - Point of Care 121 mg/dl (70-99)
--- NOTE | 2025-03-25 16:05 | PTCARENOTE ---
VS obtained, assessment stable. R groin site cdi, no ecchymosis or hematoma noted. L lat chest tube d/c'd as ordered, patient tolerated well. Resting comfortably, at bedside.
[2025-03-25] MEDS: COZAAR 25 MG PO (16:43)
[2025-03-25 18:01] LABS: Glucose - Point of Care 118 mg/dl (70-99)
[2025-03-25] MEDS: NOVOLOG FLEXPEN 5 UNITS SC (18:05)
--- NOTE | 2025-03-25 18:05 | PTCARENOTE ---
Report given to KRIS Silva, IVU. Patient and all belongings transported to room 2258.
--- NOTE | 2025-03-25 18:20 | PTCARENOTE ---
Received patient from CVICU into room 225. Patient oob to the chair, eating his dinner now. Post cath IV fluids completed, VSS, no change since previous nurse's assessment. Call ruvalcaba in reach.
[2025-03-25] MEDS: REMOVE LIDOCAINE PATCH REMOVE (19:45)
[2025-03-25 21:06] LABS: Glucose - Point of Care 170 mg/dl (70-99)
--- NOTE | 2025-03-26 00:14 | PTCARENOTE ---
Received pt at change of shift, OOB to chair at change of shift with no complaints. Left chest incision clean and intact, well approximated with surgical glue, L flank dsg CDI. R groin site intact with small old drainage marked on previous shift, no
ecchymosis or hematoma noted. VSS, SR on the tele monitor, HR 70's. Pox 94% on 2L. Call ruvalcaba within reach, POC on going and in agreement.
[2025-03-26 03:14] VITALS: BP 111/61
[2025-03-26 03:59] LABS: Hematocrit 31.5 % (39.0-52.0); Hemoglobin 10.4 g/dL (13.0-18.0); Mean Corp Hgb Conc. 33.0 g/dL (33.0-37.0); Mean Corpuscular Volume 87.0 fL (80.0-94.0); Platelet Count 196 10^3/uL (130-400); Red Cell Dist. Width 14.3 % (11.5-14.5)
[2025-03-26 04:22] LABS: Blood Urea Nitrogen 28 mg/dl (9-20); Calcium 8.1 mg/dl (8.4-10.2); Carbon Dioxide 25 mmol/L (22-30); Chloride 106 mmol/L (98-107); Estimated Creatinine Clearance 72 ml/min; Glucose 115 mg/dl (70-99); Magnesium 2.2 mg/dl (1.6-2.3); Potassium 4.2 mmol/L (3.5-5.1); Sodium 135 mmol/L (135-145); eGFR > 60.00
[2025-03-26 04:47] VITALS: BMI 34.8
[2025-03-26] MEDS: TYLENOL 1000 MG PO (05:42)
[2025-03-26 06:00] VITALS: BMI 34.8
--- NOTE | 2025-03-26 06:01 | PTCARENOTE ---
Pt voided 550 cc of clear yellow urine this morning, bladder scanned after voiding for 450cc. Pt refusing to be straight cath at this time, will try to void again within 30 min and then agree for straight cath if unable.
--- NOTE | 2025-03-26 06:36 | W.PN.CT ---
Today's Communication / Plan
-
-pod#3
-no issues overnight, ambulates without problems, wants to go home
-s/p cath 03/25 with PCI of OM2
-current meds (ASA, Brilinta, Lipitor, Coreg, Cozaar, Farxiga, Flomax, Amio, Protonix)
-ambulate, encourage IS
-possible d/c
Assessment / Plan
-
Assessment:
-S/P Robotic assisted MIDCAB (single-vessel bypass LAZARO in situ to LAD)/Robotic assisted harvest of internal mammary artery with anterolateral mini thoracotomy for CABG/ Shingling of fourth rib with reapproximation using plates, by Dr. Courtney, 03/23/25,
pod#3
-S/P PCI of OM2 on 03/25/[address] Crawford
-Coronary artery disease involving the proximal LAD
-Hx of STEMI S/P PCI with overlapping DARYL to ostial/proximal RCA, 02/09/25
-Hypertension
-Hyperlipidemia
-T2DM (insulin dependent, A1C 9.2)
-Nonrheumatic mitral valve annular calcification
-LVEF 50-55%
-Syncope
-S/p Repair of trigger finger
-Acute postop blood loss/Anemia (stable without blood transfusion)
-Acute postop atelectasis
-Acute postop metabolic acidosis
-Acute postop hyperkalemia
-Acute postop hypoxemia, likely d/t shunting from Cardene gtt
-Acute postop hypovolemia with subsequent hypervolemia
-Acute postop urinary retention
Discussed patient care with: Nursing and Care Team
Subjective
Procedure
S/P Robotic assisted MIDCAB (single-vessel bypass LAZARO in situ to LAD)/Robotic assisted harvest of internal mammary artery with anterolateral mini thoracotomy for CABG/ Shingling of fourth rib with reapproximation using plates, by Dr. Courtney, 03/23/25
-
Date of Service: March 26, 2025
Objective Data
-
Lab Results
03/26/25 03:05
03/26/25 03:05
PT 14.8 Sec (11.4-14.6) H 03/23/25 12:10
INR 1.13 03/23/25 12:10
APTT 31.1 Sec (23.4-35.0) 03/23/25 12:10
Vital Signs
Vital Signs
Temp Pulse Resp BP Pulse Ox
98.8 F 72 16 111/61 93
03/26/25 03:17 03/26/25 04:30 03/26/25 03:17 03/26/25 03:14 03/26/25 03:17
CT Intake/Output/Weight
03/25/25 03/25/25 03/26/25
06:59 18:59 06:59
Intake Total 171.8 / 516.2 253.0 / 853.0 600 / 853.0
Output Total 1230 / 2770 1245 / 1845 600 / 1845
Balance -1058.2 / -2253.8 -992.0 / -992.0 0 / -992.0
SaO2: 93
Physical Exam
-
General: Awake and AOx3
Cardiovascular: Regular rate & rhythm, No Murmurs and No Rub
Respiratory: Decreased Breath Sounds
Sternum: Stable
Incision: Clean, Dry and Intact
Extremities: No Edema
Data Reviewed
-
Lab Results: Results Reviewed
Medications: Active Meds Reviewed
Chest X-Ray: Report Reviewed and Image Reviewed
ECG: Report Reviewed and Image Reviewed
[2025-03-26 08:00] VITALS: BP 122/63
--- NOTE | 2025-03-26 08:10 | W.PN.CD ---
Today's Communication / Plan
-
Incentive spirometry.
Ambulation.
Maintain DAPT.
Discharge planning.
Impression / Plan
-
Impression/Plan: 65 y/o male with HTN, hyperlipidemia, IDDM with recent STEMI s/p PCI to proximal RCA (01/2025) admitted for elective MIDCAB LAZARO-LAD.
#CAD:
-Chronic, progressive.
-Hx of STEMI s/P PCI to proximal/ostial RCA (overlapping Medtronic Lamberto [place] 3.0 x 18 and 3.0 x 26 DARYL, post dilated with a 3.25 NC balloon), 02/09/2025.
-S/P MIDCAB (LAZARO to LAD) with Dr. Courtney, 03/23/25.
-S/P staged PCI of OM2 (Medtronic Lamberto [place] 2.5 x 15 DARYL) with reduction in stenosis to 0%, maintaining BETTE III flow.
-Routine post operative management. The patient is now completely revascularized.
-Continue amiodarone, aspirin, carvedilol, ticagrelor.
-Encourage incentive spirometry.
-Ambulation.
#Mitral valve echo density/Mild MR
-Chronic, stable.
-NADIYA shows calcified mitral valve tip, no endocarditis.
#HTN
-Chronic, stable.
-Continue carvedilol 3.125 mg BID.
-Losartan 25 mg daily started today.
#Hyperlipidemia:
-Chronic, stable.
-Continue atorvastatin 80 mg daily and ezetimibe 10 mg daily.
-Goal LDL < 55.
#IDDM2
-Chronic.
-Post Op insulin protocol.
-HbA1c = 9.2% in 01/2025.
Subjective/Interval History:
S/P PCI to OM2 yesterday.
Transferred to IVU.
Feels well.
DATA:
Cardiac Catheterization/PCI, 02/09/2025:
CONCLUSIONS
1. Right dominant circulation with a 70+% lesion in the proximal LAD, 40% lesion in the proximal circumflex, and acute, thrombotic occlusion of the proximal RCA status post successful PCI (Medtronic [place] 3.0 x 18 DARYL, postdilated with a
3.0 and 3.25 NC balloon) and a densely calcified 70% lesion in the proximal RCA extending to the ostium, status post successful IVUS guided PCI (Medtronic [place] 3.0 x 26 DARYL, postdilated with a 3.0 and 3.25 NC balloon) with reduction in both
stenoses to 0%, restoring BETTE-3 flow.
2. Moderately elevated filling pressures (LVEDP = 23 mmHg at 109.2 kg).
TTE, 02/11/2028:
CONCLUSIONS
Low normal left ventricular systolic function. LVEF 50-55%.
Hypokinesis of the basal to mid inferior, inferolateral and inferoseptal chinchilla.
Focal calcification of the anterior mitral valve leaflet. Hypermobile
echodensity attached to the chordal apparatus (view 45).
Aortic sclerosis.
NADIYA 02/11/25
CONCLUSIONS
Left ventricular ejection fraction is 50-55%.
Mildly thickened mitral valve leaflets with focal thickening on the anterior
leaflet. Calcification noted on the chordal structures.
No NADIYA evidence for endocarditis.
Cardiac Catheterization/PCI, 03/25/2025:
CONCLUSIONS
1. Right dominant circulation with patent stents in the proximal/ostial RCA, moderate diffuse disease in the distal RCA and RPDA, a 70% lesion in the proximal LAD status post prior MIDCAB with a patent LAZARO graft, a 30% lesion in the proximal
circumflex and a 90% lesion in the midportion of a sizable OM 2, status post successful PCI (Medtronic Lamberto [place] 2.5 x 15 DARYL, postdilated with a 2.5 NC balloon throughout and a 3.0 x 8 NC balloon in the proximal margin) with reduction in
stenosis to 0%, maintaining BETTE-3 flow in all branches.
Physical Exam
Vital Signs/Labs
Vital Signs
Temp Pulse Resp BP Pulse Ox
37.0 C 72 20 111/61 94
03/26/25 08:04 03/26/25 04:30 03/26/25 08:04 03/26/25 03:14 03/26/25 08:04
03/24/25 03/25/25 03/26/25
11:59 11:59 11:59
Actual Weight 103 kg 103.6 kg 103.7 kg
03/26/25 03:05
03/26/25 03:05
PT 14.8 Sec (11.4-14.6) H 03/23/25 12:10
INR 1.13 03/23/25 12:10
APTT 31.1 Sec (23.4-35.0) 03/23/25 12:10
Magnesium 2.2 mg/dl (1.6-2.3) 03/26/25 03:05
Physical Exam
Constitutional: No acute distress and Comfortable
EENT: Anicteric and Moist mucous membranes
Cardiovascular: Rhythm & rate is regular, Pedal edema is absent, JVD pressure is normal, S1S2 is normal and Murmur/rub/gallop absent
Respiratory: Respiratory effort normal, Lungs clear to auscul., Wheeze Absent, Crackles Absent and Rhonchi Absent
GI: Soft, Distention absent, Flat, Non tender and Normal bowel sounds
Neuro/Psych: AO x 3
Other: Cath Site (Right femoral access site is C/D/I.)
Data Reviewed
-
Date of Service: March 26, 2025
Medical Decision Making: Reviewed Test Results, Independent Historian Assessment and Test Interpretation
EKG: Tracing Personally Visualized and interpreted and Report Reviewed by me
Echo: Tracing Personally Visualized and interpreted and Report Reviewed by me
X-Ray/CT/US/MRI/NUC/PET: Image Personally Visualized and interpreted and Report Reviewed by me
Medical Tests (PFT, Pathology etc): Image Personally Visualized and interpreted and Report Reviewed by me
Labs: Labs Reviewed by me
Old Records: Reviewed
[2025-03-26 08:14] LABS: Glucose - Point of Care 107 mg/dl (70-99)
[2025-03-26 08:27] LABS: ACT-LR - POC > 397 Seconds (116-155)
[2025-03-26] MEDS: BACTROBAN 2% OINTMENT 1 APPLIC NASAL (08:47)
[2025-03-26] MEDS: COREG 3.125 MG PO (08:48)
[2025-03-26] MEDS: BRILINTA 90 MG PO (08:48)
[2025-03-26] MEDS: COZAAR 25 MG PO (08:49)
[2025-03-26] MEDS: FARXIGA 10 MG PO (08:49)
[2025-03-26] MEDS: MAGNESIUM OXIDE 400 MG PO (08:49)
[2025-03-26] MEDS: ZETIA 10 MG PO (08:49)
[2025-03-26] MEDS: LOW STRENGTH ASPIRIN 81 MG PO (08:50)
[2025-03-26] MEDS: PROTONIX 40 MG PO (08:50)
[2025-03-26] MEDS: SENOKOT-S 1 TABLET PO (08:50)
[2025-03-26] MEDS: PACERONE 200 MG PO (08:50)
[2025-03-26] MEDS: NEURONTIN 100 MG PO (08:51)
[2025-03-26] MEDS: LIPITOR 80 MG PO (08:51)
[2025-03-26] MEDS: LIDOCAINE 4% PATCH TOPICAL (08:52)
[2025-03-26] MEDS: NOVOLOG FLEXPEN 5 UNITS SC (08:57)
[2025-03-26 09:07] VITALS: BP 116/62
[2025-03-26 09:16] VITALS: BP 116/65
[2025-03-26] MEDS: LANTUS 0.56 UNITS SC (09:24)
--- NOTE | 2025-03-26 09:41 | PTCARENOTE ---
Pt has small, approx 2.5cm x 1 cm long skin tear lateral to L nipple. It has a pink wound bed, no drainage noted. It is PASHA.
--- NOTE | 2025-03-26 10:16 | W.DCSUMMARY ---
Discharge Summary
Discharge Data
Date of Admission: 03/23/25
Date of Discharge: 03/26/25
-
Pending Results: No
Hospital Course
Primary care physician: Bradford Benjamin
Outpatient tiedown operator: Landon Crawford
Inpatient consultants: [facility] Cardiology, pulmonary vascular technician, diabetes nurse practitioner
Procedures:
1. MIDCAB x 1
2. Planned PCI (DARYL-OM2)
Primary Diagnosis:
1. Coronary artery disease
Secondary Diagnoses:
1. STEMI status post PCI to the inferior wall
2. Hypertension
3. Hyperlipidemia
4. Diabetes type 2 (A1C 9.2)
5. Nonrheumatic mitral valve annular calcification
6. Syncope
7. S/p Repair of trigger finger
-Acute postop blood loss/Anemia (stable without blood transfusion)
-Acute postop atelectasis
-Acute postop metabolic acidosis
-Acute postop hyperkalemia
-Acute postop hypoxemia, likely d/t shunting from Cardene gtt
-Acute postop hypovolemia with subsequent hypervolemia
-Acute postop urinary retention
HPI: Patient was electively admitted 03/23/25 for MIDCAB. Patient really was recently admitted with STEMI (02/05-02/13) and underwent RCA stenting and discharged on DAPT.
Hospital course: Patient was taken to the operating room and underwent robotic assisted MIDCAB (LAZARO to LAD) via anterolateral mini thoracotomy for CABG and shingling of fourth rib with reapproximation using plates by Dr. Paulino Courtney. Patient
received no intraoperative blood products and was extubated in the operating room. Patient returned to CVICU on Cardene which was weaned on postoperative day #1. Brilinta was resumed on postoperative day 1. Patient required straight cath x 1 for
550 cc due to urinary retention. Patient was started on Flomax. On 03/25/2025, patient underwent a planned PCI with drug-eluting stent to the OM [address] Landon Crawford. Chest tubes have been removed. Insulin drip was discontinued and patient
started on Lantus, NovoLog, and Farxiga per diabetes nurse practitioner. Patient again required straight cath for 850 cc of urine. Subsequently patient urinated 600 cc without difficulty. Patient will be followed by transitional care nurse team and
will have BMP drawn in 1 week. Labs satble on discharge: Hb 10.4, platelet count 196K, creatinine 1.2.(Baseline 1.1)
Home medication changes:
Protonix for GI prophylaxis while on Brilinta
Flomax for urinary retention
Tresiba dose decreased to 78u/d
Oxycodone/gabapentin for post-op pain
Discharge Plan
-
Patient Disposition: Home (Routine Discharge)
Discharge Diagnosis/Procedures: MIDCAB x 1 (03/23), Angioplasty and stent to Left Circumflex artery (03/25)
Condition: Good
Diet: Low Cholesterol, Low Sodium and Diabetic, Carb Controlled
Activity: No strenuous activity
Driving Restrictions: Not until seen by your Dr
Bathing Restrictions: OK to Shower
Blood Work: BMP in 1 week
Other Services: Cardiac Rehab
Specialty Instructions: Weigh Daily- Call MD for wt gain/loss 3 lbs overnight/5 lbs in 1 week
Stand Alone Forms: DC Instructions- Cath/EP Lab
Referrals:
CT Transitional Care Nurse [Outside]
Referral Note: The Cardiothoracic Transitional Care Nurse will call you to set up a visit in 1-2 days.
[facility] [Outside] - 04/20/25 8:30 am
Referral Note: Cardiac Rehab Orientation appointment is on APR 20 at 830am
The Cardiac Rehab gym is located on the first floor of the [facility].
Bradford Benjamin MD [Family Provider, Family Practice]
Kate Huizar CRNP [Specified Professional Personl, Cardiology] - 04/20/25 8:40 am
Paulino Courtney MD [Active, Cardiac Surgery] - 04/07/25 3:15 pm
Prescriptions:
New
tamsulosin 0.4 mg Capsule
0.4 mg PO HS Qty: 30 2RF
pantoprazole 40 mg Tablet,Delayed Release (Dr/Ec)
40 mg PO DAILY Qty: 30 2RF
gabapentin 100 mg Capsule
100 mg PO TID Qty: 30 0RF
oxycodone 5 mg Tablet
5 mg PO Q4HPRN PRN (Reason: severe pain) Qty: 10 0RF
Continued
atorvastatin 80 mg Tablet
80 mg PO DAILY
insulin aspart U-100 [Novolog U-100 Insulin aspart] 100 unit/mL Solution
1 sliding scale dose SC AC
Rx Instructions:
14units for breakfast, 14units lunch, 26units diner
aspirin 81 mg Tablet
81 mg PO DAILY
Ozempic 0.25 mg or 0.5 mg (2 mg/3 mL) Pen Injector
0.25 mg SC QWEEK
Rx Instructions:
Takes every Sunday
ezetimibe 10 mg Tablet
10 mg PO DAILY Qty: 30 5RF
losartan 25 mg Tablet
25 mg PO DAILY Qty: 30 5RF
carvedilol 3.125 mg tablet
3.125 mg PO BID
ticagrelor [Brilinta] 90 mg tablet
90 mg PO BID
dapagliflozin propanediol [Farxiga] 10 mg tablet
10 mg PO DAILY
Changed
insulin degludec [Tresiba FlexTouch U-100] 100 unit/mL (3 mL) Insulin Pen
78 unit SC DAILY Qty: 15 0RF
Discharge Orders:
Discharge Patient (As Directed); Ordered 03/26/25
Ordered By: Jennifer Amezquita
Care Plan Goals
Care Plan Goals:
Problem: Readiness for enhanced knowledge related to diagnosis and treatment plan
Goal: Understand your diagnosis and treatment plan needs, including medications if applicable.
Instructions: Know your diagnosis, underlying causes and treatment plan options, including medications if applicable. Consult with your health care team to learn about your diagnosis and treatment plan, including medications if applicable.
Discharge Date and Time
Print Language: ANGUILLAN
--- NOTE | 2025-03-26 11:09 | CM ---
Pricing on Brilinta is $0 copay. Patient was on Brilinta prior to coming into the hospital and does have Brilinta at home.
--- NOTE | 2025-03-26 11:10 | CM ---
Chart reviewed. Patient is independent of ADLS, lives with his in a split level, 5 DAYNE, 0 DME. Plan is for the patient to return home. CM to follow
--- NOTE | 2025-03-26 11:39 | PTCARENOTE ---
L IJ cordis cath removed by Georgia Bhatt, Pt riddhi martinez, R neck dsg remains D+I.
[2025-03-26 11:46] VITALS: BP 116/62; BP 116/65; PULSE 71; O2SAT 94; O2SAT 96
--- NOTE | 2025-03-26 14:05 | PN.DE.MGMTRT ---
Insulin Management
- -
03/26/2025: Diabetes Management Follow up (patient seen this AM, since discharged)
Patient admitted 03/23 for MIDCAB; LAZARO-LAD. PMH: CAD, HTN, HLD, IDDM with recent STEMI 01/2025 s/p RCA-PCI-DARYL.
Prior to admission was taking Farxiga 10mg daily, Ozempic weekly, Tresiba 86 units daily in AM with SS NovoLog. Recent A1C 9.2% 01/2025. Cr 1, eGFR > 60.
Patient is awake alert and oriented out of bed in chair, able to discuss diabetes care. at bedside supportive. Patient known to me from 02/09 admission.
He follows with the [facility] @ [facility] endocrine office for ongoing diabetes care and uses a CGM-DexCom G7 for glucose monitoring at home.
Patient received 50 units lantus yesterday, glucose 118 to 170. Fasting today 107. Lengthy discussion with patient regarding decreased intake and insulin needs. Reduced dose of lantus 56 units today given, with Farxiga 10 mg daily and novolog 5
units AC with low corrective. Will discharge on 78 units of Tresiba, to follow with endo.
Discussed with Cardiothoracic CODING [facility].
Discussed with nurse. Will cont to follow
Diabetes History
- -
Type of Diabetes: 2 requiring insulin
Pre-Admission Diabetes Regimen
03/26/25
03:05
Creatinine 1.2
Insulin Pump Settings
IP Diabetes Regimen
03/25/25 03/25/25 03/25/25
15:02 17:59 21:04
Glucose
POC Glucose 121 H 118 H 170 H
03/26/25 03/26/25
03:05 08:12
Glucose 115 H
POC Glucose 107 H
Meal type: Dinner
Meal type: Lunch
Amount consumed: 100%
Amount consumed: 75%
Patient Education
== END 2025-03-26 12:10 | disposition home or self-care (01) | DRG 232 ==
LOC: IVU 05:08
PROVIDERS: Anesthesiology; Internal Medicine Cardiovascular Disease; ADMITTING PHYSICIAN Thoracic Surgery (Cardiothoracic Vascular Surgery); CONSULT PHYSICIAN Internal Medicine Critical Care Medicine; FAMILY PHYSICIAN Family Medicine; REFERRING PHYSICIAN Nurse Practitioner Family
PROC: 8E0W0CZ Robotic Assisted Procedure of Trunk Region, Open Approach (ICD-10-PCS; 2025-03-23)
PROC: B24BZZ4 Ultrasonography of Heart with Aorta, Transesophageal (ICD-10-PCS; 2025-03-23)
PROC: 02100Z9 Bypass Coronary Artery, One Artery from Left Internal Mammary, Open Approach (ICD-10-PCS; 2025-03-23)
PROC: 4A023N7 Measurement of Cardiac Sampling and Pressure, Left Heart, Percutaneous Approach (ICD-10-PCS; 2025-03-25)
PROC: 027034Z Dilation of Coronary Artery, One Artery with Drug-eluting Intraluminal Device, Percutaneous Approach (ICD-10-PCS; 2025-03-25)
PROC: B2181ZZ Fluoroscopy of Left Internal Mammary Bypass Graft using Low Osmolar Contrast (ICD-10-PCS; 2025-03-25)
PROC: B2111ZZ Fluoroscopy of Multiple Coronary Arteries using Low Osmolar Contrast (ICD-10-PCS; 2025-03-25)
DX: I25.10 Atherosclerotic heart disease of native coronary artery without angina pectoris (principal); D62 Acute posthemorrhagic anemia; J98.11 Atelectasis; E87.20 Acidosis, unspecified; I34.81 Nonrheumatic mitral (valve) annulus calcification; E11.9 Type 2 diabetes mellitus without complications; I10 Essential (primary) hypertension; E78.00 Pure hypercholesterolemia, unspecified; E87.5 Hyperkalemia; R09.02 Hypoxemia; E86.1 Hypovolemia; E87.70 Fluid overload, unspecified; R33.9 Retention of urine, unspecified; I25.2 Old myocardial infarction; Z79.02 Long term (current) use of antithrombotics/antiplatelets; Z79.4 Long term (current) use of insulin; Z79.82 Long term (current) use of aspirin; Z79.85 Long-term (current) use of injectable non-insulin antidiabetic drugs; Z79.899 Other long term (current) drug therapy; Z95.5 Presence of coronary angioplasty implant and graft
CPT/HCPCS: 36415; 71045; 80048; 80053; 81003; 81015; 82248; 82330; 82550; 82565; 82805; 82810; 82947; 82962; 83735; 84132; 84302; 84520; 85014; 85018; 85025; 85027; 85049; 85347; 85610; 85730; 86850; 86900; 86901; 86920; 87070; 93005; 93312; 93320; 93325; 93455; 93880; 99152; 99153; C1713; C1725; C1760; C1874; C1887; C1894; C9600; J2916; Q9967

== ENCOUNTER 2025-03-30 16:57 | Observation (INO) | payer OTHER, SELFPAY ==
[2025-03-30] VITALS (11 sets, daily range): BP systolic 116–152; BP diastolic 61–85; BMI 33.2
[2025-03-30 14:05] LABS: Hematocrit 35.7 % (39.0-52.0); Hemoglobin 12.2 g/dL (13.0-18.0); Mean Corp Hgb Conc. 34.2 g/dL (33.0-37.0); Mean Corpuscular Volume 84.8 fL (80.0-94.0); Nucleated Red Blood Cells % 0 % (-); Platelet Count 309 10^3/uL (130-400); Red Cell Dist. Width 14.2 % (11.5-14.5)
[2025-03-30 14:22] LABS: ALT (SGPT) 38 U/L (0-50); AST (SGOT) 35 U/L (17-59); Albumin 3.5 g/dl (3.5-5.0); Alkaline Phosphatase 58 U/L (38-126); Blood Urea Nitrogen 17 mg/dl (9-20); Calcium 8.7 mg/dl (8.4-10.2); Carbon Dioxide 23 mmol/L (22-30); Chloride 102 mmol/L (98-107); Glucose 134 mg/dl (70-99); Potassium 4.2 mmol/L (3.5-5.1); Sodium 133 mmol/L (135-145); Total Protein 6.4 g/dl (6.3-8.2); eGFR > 60.00
--- NOTE | 2025-03-30 14:22 | ED.GENMED ---
History of Present Illness
<Mary Peoples PA-C - Last Filed: 03/31/25 00:01>
General
Chief Complaint: Fainting/Passed Out
Source: patient
Exam Limitations: none
Time Seen by Provider: 03/30/25 14:07
Nursing documentation reviewed up to this point in time: agreed with
History of Present Illness
History of Present Illness:
Patient is a 65-year-old male with history hypertension, hyperlipidemia, insulin-dependent diabetes CAD currently 7 days s/p CABG who presents to the emergency department after syncopal event at home. Patient states that he got up to use the
bathroom this morning around 1045 and after urinating he had a relatively sudden syncopal event. He states he does not remember any preceding lightheadedness, dizziness, chest pain, shortness breath, nausea however 'just woke up on the ground'. He
states he did strike his head on the bathtub and sustained a laceration to the back of his head.
Of note�patient is 70s postop from CABG. He was discharged on and states that he felt well at that time. However�he did begin with nonbloody diarrhea on Sunday which has persisted. He is urinating without difficulty. He denies any
chest pain or shortness of breath however does note a pain in his shoulder/neck which he believes is muscular. Patient denies any neck or back pain. He denies any numbness /tingling or weakness extremities. No bowel/bladder incontinence or groin
paresthesias.
This was performed with Dr. Courtney. He did speak with her office today recommended evaluation in the emergency department.
Review of Systems
<Mary Peoples PA-C - Last Filed: 03/31/25 00:01>
Review of Systems
Allergies reviewed?: Yes
All Other Systems: ROS reviewed and negative except as documented in HPI and ROS
Phy Exam
<Mary Peoples PA-C - Last Filed: 03/31/25 00:01>
Physical Exam
Physical Exam:
Vitals: Patient's vital signs are stable. Afebrile
General: Patient appears in no distress
Skin: Approximately 3 cm horizontal laceration on posterior scalp.
Head: Normocephalic, laceration to scalp as above.
Eyes: Sclera nonicteric. EOMs intact. No nystagmus.
Throat: Protecting airway
Neck: Normal ROM, no cervical spine tenderness, no meningismus
Cardiac: Regular rate and rhythm, no murmurs. No reproducible chest wall tenderness.
Pulm: Normal respiratory effort, no wheezes, rales, rhonchi heard on exam
Abdomen: Abdomen soft and nontender.
Extremities: No evidence of cyanosis or edema. No calf tenderness or edema.
Neuro: AAOx3. Grossly intact.
Psychiatric: Normal affect.
Course
<Mary Peoples PA-C - Last Filed: 03/31/25 00:01>
Orders/Labs/Results
Orders:
Orders
03/30/25 12:52
EKG [Electrocardiogram (*1)] Urgent
Reason for Study: Fatigue / Weakness
EKG- Treatment ONCE
03/30/25 13:16
CT Head W/o Iv Contrast Urgent
Comment:
Reason For Exam: fall on thinner
03/30/25 13:53
Type And Crossmatch [Type+Screen] Urgent
Complete Blood Count/With Diff Urgent
Comprehensive Metabolic Panel Urgent
NT-proBNP Urgent
PTT Urgent
Troponin I Urgent
03/30/25 14:25
CDIFF [C difficile Antigen & Toxins] Urgent
[facility] Source: Feces/Stool
Specimen Description:
Stool Culture Urgent
[facility] Source: Feces/Stool
Specimen Description:
0.9% Sodium Chloride 500 ml [Nss] 500 ml IV BOLUS
03/30/25 14:58
Tetanus/Diphth/Acelpertussis [Adacel] 0.5 ml IM .ONCE ONE
03/30/25 Dinner
Cholesterol Lowering
At Your Request: Full Participation
Does patient need a safe tray?: No
Cholesterol Lowering: Sodium, 2 Gram
03/30/25 15:26
0.9% Sodium Chloride 500 ml [Nss] 500 ml IV BOLUS
03/30/25 16:16
Admit/Transfer Patient As Directed
Co-Sign Provider:
Level of Care: Observation services
Assign to:: Telemetry
Physician / Group: Tayler Hebert
Diagnosis: syncope
Reason for Telemetry: Syncope
Date to Stop Telemetry: 04/01/25
Time to Stop Telemetry: 11:00
PRN Pain Medication Management As Directed
May give lesser potent ordered pain med per pt: Yes
preference::
Protocol:: Medication orders for pain may be administered in a
manner that supports deferring to patient preference
when the pt is:
- Requesting an ordered lesser potent pain medication.
Least to most potent pain medications are defined
as: acetaminophen < NSAID < tramadol < opioids
(morphine, oxycodone, hydromorphone).
- Requesting a lesser dose of the same medication IF
ORDERED.
- Requesting a less intrusive route of administration
if both routes are prescribed by the provider (PO <
IV).
03/30/25 16:18
Code Status As Directed
Resuscitation Status: Full Code
03/30/25 18:11
0.9% Sodium Chloride 1000 ml [Nss] 1,000 ml IV 80 mls/hr
Acetaminophen [Tylenol] 650 mg PO Q4HPRN PRN
Oxycodone [Roxicodone] 5 mg PO Q4HPRN PRN severe pain
03/30/25 18:11
Activity As Directed
Activity Level: With Assistance
Intake/ Output As Directed
Frequency: Per unit guidelines
Orthostatic Vital Signs As Directed
Orthostatic VS Frequency: BID
Vital Signs As Directed
Frequency: Per unit guidelines
Weight As Directed
Frequency: Once
Comment: on admission
OT Consult [Ot Eval And Treat] Routine
PT Consult [Pt Eval And Treat] Routine
Activity Level: As Tolerated
DX Deep Vein Thrombosis Video Routine
03/30/25 20:00
Carvedilol [Coreg] 3.125 mg PO BID
Enoxaparin Sodium [Lovenox] 40 mg SC QPM
Ticagrelor [Brilinta] 90 mg PO BID
03/30/25 22:00
Gabapentin [Neurontin] 100 mg PO TID
Tamsulosin [Flomax] 0.4 mg PO HS
03/31/25 06:00
Basic Metabolic Panel IN AM
Complete Blood Count/No Diff IN AM
03/31/25 08:00
Aspirin Chewable [Low Strength Aspirin] 81 mg PO DAILY
Atorvastatin [Lipitor] 80 mg PO DAILY
Dapagliflozin [Farxiga] 10 mg PO DAILY
Ezetimibe [Zetia] 10 mg PO DAILY
Pantoprazole [Protonix] 40 mg PO DAILY
insulin degludec [Tresiba FlexTouch U-100] 78 unit SC DAILY
04/01/25 11:00
DC Protocol for Telemetry ONCE
Abnormal Lab Results
03/30/25
13:53
WBC 16.0 H 10^3/uL
(4.8-10.8)
RBC 4.21 L 10^6/uL
(4.70-6.10)
Hgb 12.2 L g/dL
(13.0-18.0)
Hct 35.7 L %
(39.0-52.0)
Abs Immat Gran (auto) 0.2 H 10^3/uL
(0-0.05)
Absolute Neuts (auto) 12.9 H 10^3/uL
(1.4-6.5)
Absolute Monos (auto) 1.2 H 10^3/uL
(0.1-0.6)
Immature Gran % 1.4 H %
(0-0.5)
Neutrophils % 80.6 H %
(42.2-75.2)
Lymphocytes % 9.4 L %
(20.5-51.1)
Sodium 133 L mmol/L
(135-145)
Glucose 134 H mg/dl
(70-99)
Total Bilirubin 2.2 H mg/dl
(0.2-1.3)
Troponin I 0.101 H* ng/ml
03/30/25 13:53
03/30/25 13:53
Vital Signs
Initial and Last Documented VS:
Initial Vital Signs
Temp Pulse Resp BP Pulse Ox
98.2 F 75 18 125/85 98
03/30/25 13:00 03/30/25 13:00 03/30/25 13:00 03/30/25 13:00 03/30/25 13:00
Last Documented Vital Signs
Temp Pulse Resp BP Pulse Ox
98.5 F 80 15 116/69 95
03/30/25 23:00 03/30/25 23:00 03/30/25 23:00 03/30/25 23:00 03/30/25 23:00
<Angel Brewer, - Last Filed: 03/30/25 16:58>
Orders/Labs/Results
Orders:
Orders
03/30/25 12:52
EKG [Electrocardiogram (*1)] Urgent
Reason for Study: Fatigue / Weakness
EKG- Treatment ONCE
03/30/25 13:16
CT Head W/o Iv Contrast Urgent
Comment:
Reason For Exam: fall on thinner
03/30/25 13:53
Type And Crossmatch [Type+Screen] Urgent
Complete Blood Count/With Diff Urgent
Comprehensive Metabolic Panel Urgent
NT-proBNP Urgent
PTT Urgent
Troponin I Urgent
03/30/25 14:25
CDIFF [C difficile Antigen & Toxins] Urgent
[facility] Source: Feces/Stool
Specimen Description:
Stool Culture Urgent
[facility] Source: Feces/Stool
Specimen Description:
0.9% Sodium Chloride 500 ml [Nss] 500 ml IV BOLUS
03/30/25 14:58
Tetanus/Diphth/Acelpertussis [Adacel] 0.5 ml IM .ONCE ONE
03/30/25 Dinner
Cholesterol Lowering
At Your Request: Full Participation
Does patient need a safe tray?: No
Cholesterol Lowering: Sodium, 2 Gram
03/30/25 15:26
0.9% Sodium Chloride 500 ml [Nss] 500 ml IV BOLUS
03/30/25 16:16
Admit/Transfer Patient As Directed
Co-Sign Provider:
Level of Care: Observation services
Assign to:: Telemetry
Physician / Group: Tayler Hebert
Diagnosis: syncope
Reason for Telemetry: Syncope
Date to Stop Telemetry: 04/01/25
Time to Stop Telemetry: 11:00
PRN Pain Medication Management As Directed
May give lesser potent ordered pain med per pt: Yes
preference::
Protocol:: Medication orders for pain may be administered in a
manner that supports deferring to patient preference
when the pt is:
- Requesting an ordered lesser potent pain medication.
Least to most potent pain medications are defined
as: acetaminophen < NSAID < tramadol < opioids
(morphine, oxycodone, hydromorphone).
- Requesting a lesser dose of the same medication IF
ORDERED.
- Requesting a less intrusive route of administration
if both routes are prescribed by the provider (PO <
IV).
03/30/25 16:18
Code Status As Directed
Resuscitation Status: Full Code
03/30/25 18:11
0.9% Sodium Chloride 1000 ml [Nss] 1,000 ml IV 80 mls/hr
Acetaminophen [Tylenol] 650 mg PO Q4HPRN PRN
Oxycodone [Roxicodone] 5 mg PO Q4HPRN PRN severe pain
03/30/25 18:11
Activity As Directed
Activity Level: With Assistance
Intake/ Output As Directed
Frequency: Per unit guidelines
Orthostatic Vital Signs As Directed
Orthostatic VS Frequency: BID
Vital Signs As Directed
Frequency: Per unit guidelines
Weight As Directed
Frequency: Once
Comment: on admission
OT Consult [Ot Eval And Treat] Routine
PT Consult [Pt Eval And Treat] Routine
Activity Level: As Tolerated
DX Deep Vein Thrombosis Video Routine
03/30/25 20:00
Carvedilol [Coreg] 3.125 mg PO BID
Enoxaparin Sodium [Lovenox] 40 mg SC QPM
Ticagrelor [Brilinta] 90 mg PO BID
03/30/25 22:00
Gabapentin [Neurontin] 100 mg PO TID
Tamsulosin [Flomax] 0.4 mg PO HS
03/31/25 06:00
Basic Metabolic Panel IN AM
Complete Blood Count/No Diff IN AM
03/31/25 08:00
Aspirin Chewable [Low Strength Aspirin] 81 mg PO DAILY
Atorvastatin [Lipitor] 80 mg PO DAILY
Dapagliflozin [Farxiga] 10 mg PO DAILY
Ezetimibe [Zetia] 10 mg PO DAILY
Pantoprazole [Protonix] 40 mg PO DAILY
insulin degludec [Tresiba FlexTouch U-100] 78 unit SC DAILY
04/01/25 11:00
DC Protocol for Telemetry ONCE
Abnormal Lab Results
03/30/25
13:53
WBC 16.0 H 10^3/uL
(4.8-10.8)
RBC 4.21 L 10^6/uL
(4.70-6.10)
Hgb 12.2 L g/dL
(13.0-18.0)
Hct 35.7 L %
(39.0-52.0)
Abs Immat Gran (auto) 0.2 H 10^3/uL
(0-0.05)
Absolute Neuts (auto) 12.9 H 10^3/uL
(1.4-6.5)
Absolute Monos (auto) 1.2 H 10^3/uL
(0.1-0.6)
Immature Gran % 1.4 H %
(0-0.5)
Neutrophils % 80.6 H %
(42.2-75.2)
Lymphocytes % 9.4 L %
(20.5-51.1)
Sodium 133 L mmol/L
(135-145)
Glucose 134 H mg/dl
(70-99)
Total Bilirubin 2.2 H mg/dl
(0.2-1.3)
Troponin I 0.101 H* ng/ml
03/30/25 13:53
03/30/25 13:53
Vital Signs
Initial and Last Documented VS:
Initial Vital Signs
Temp Pulse Resp BP Pulse Ox
98.2 F 75 18 125/85 98
03/30/25 13:00 03/30/25 13:00 03/30/25 13:00 03/30/25 13:00 03/30/25 13:00
Last Documented Vital Signs
Temp Pulse Resp BP Pulse Ox
98.5 F 80 15 116/69 95
03/30/25 23:00 03/30/25 23:00 03/30/25 23:00 03/30/25 23:00 03/30/25 23:00
Procedures
<Mary Peoples PA-C - Last Filed: 03/31/25 00:01>
Laceration Closure
Posterior Scalp:
Status of Wound: clean
Size of Wound in cm: 7
Description of Wound Edges: sharp
Preparation: cleaned with saline
Anesthesia: 1% Lidocaine with epi
Revision/Debridement: minor revision
Wound exploration: explored to base- no FB
Type of Closure: single layer closure
Skin Closure Material: skin callie (7)
<Mary Peoples PA-C - Last Filed: 03/31/25 00:01>
MDM/Problems Addressed
Differential Diagnosis Includes:
Not limited to: Acute dehydration, orthostatic hypotension, vasovagal syncope, colitis, C. difficile, cardiac arrhythmia, etc.
MDM/Problems Addressed:
65-year-old male currently 7 days s/p CABG presenting after syncopal event with associated head strike. He has had a few days of proceeding diarrhea and poor PO intake. No reported chest pain, shortness of breath. Vitals and physical exam as above.
Patient appears in no distress. He has an approximately seven cm laceration on posterior scalp. No cervical spine tenderness. Cardio/pulmonary assessment unremarkable without any evidence of other associated traumatic injuries on exam. Abdomen soft
and nontender.
Differential includes syncope secondary to hypovolemia with history of recent diarrhea. Possibly orthostatic or vasovagal in nature. Lower suspicion for cardiac syncope however, would be on differential. Do not suspect intra-abdominal infection.
Prior to my evaluation, basic labs were sent significant for leukocytosis of 16 and mild anemia w/ hemoglobin 12.2 which is stable. Chemistry relatively unremarkable. Troponin was sent in triage which is elevated to 0.101 � likely secondary to
recent CABG. EKG reveals normal sinus rhythm with nonspecific ST changes and inferior leads. Do not suspect ACS
ED plan: Will check CT head. Will give IV fluids and order stool studies. Laceration on posterior scalp will require primary closure.
Update: CT scan without acute intracranial abnormalities. Scalp soft tissue hematoma noted. Verbal consent obtained by patient. Laceration thoroughly irrigated w/ normal saline and anesthetized with 1% lidocaine w/ epinephrine. 7 skin callie
applied to approximate wound edges. Patient tolerated procedure well.
Overall suspicion is likely syncope secondary to hypovolemia. Much less likely cardiac. However � given persistent diarrhea and recent CABG � feel patient should be admitted to hospital for further observation, IV fluids. Patient accepted to
hospitalist service in stable condition. CT surgery aware.
Chronic conditions affecting care:
Hypertension, CAD status post recent CABG
Acute Exacerbation and/or Progression of Chronic Illness:
N/A
<Mary Peoples PA-C - Last Filed: 03/31/25 00:01>
*Radiology
Radiology exam reviewed: radiology read reviewed
*Pulse Oximetry
SaO2: 97
Oxygen Mode of Delivery: Room air
Patient hypoxic: no
*EKG
Interpreted by ED Provider?: Yes
EKG Intrepretation Date: 03/30/25
Interpretation: abnormal
Comparison EKG: changes noted
Heart Rate: 74
Rate: normal
Rhythm: sinus
[place]: normal axis
Interval: normal QT interval
QRS Pattern: normal QRS
Ischemia: non-specific ST changes
*Tapper Operator Interpretation
Rate: normal
Interpretation: normal
Heart Rate: 74
Rhythm: sinus
*Critical Care Note
Total Time (30-74mins, 75-104mins- exclusive of procedures): Not Applicable
<Mary Peoples PA-C - Last Filed: 03/31/25 00:01>
Patient Management
Discussion with other providers: Hospitalist and Senior Care Assistant (Case / EKG reviewed with CT surgery)
Escalation/DeEscalation of care consider admission/obs:
Admit indicated
ED Attending Note
<Mary Peoples PA-C - Last Filed: 03/31/25 00:01>
-
Portions of this chart may have been created with voice recognition software.� Occasional wrong word or��sound alike� substitutions may have occurred due to the inherent limitations of voice recognition software.
<Angel Brewer DO - Last Filed: 03/30/25 16:58>
ED Attending Note
Patient seen and examined by attending physician: Yes
I performed the substantive portion of visit, reviewed & personally made and approve the management plan that is documented in note by myself or ESTELITA.: Yes
I performed a history and physical exam of patient and discussed management with resident, I reviewed resident's note and agree with documented findings and plan of care.: Yes
ED Attending Note:
65-year-old male presents to the ER for evaluation of feeling lightheaded and fainting at home. He has been experiencing diarrhea over the past few days. He is 7 days postop after CABG. He denies chest pain or presyncopal symptoms today. He
reports feeling generally unwell but has no complaint of pain at time of evaluation. Vital signs reviewed, patient is awake, alert, sallow complexion, appears in no acute distress, heart regular rate and rhythm not murmurs or ectopy, lungs are
clear to auscultation without wheezes rales or rhonchi, extremities without edema, GCS is 15. I discussed with patient need for admission for further evaluation and care. CT surgery team was made aware of patient's return to the hospital. Patient
was admitted to hospitalist in stable condition.
Discharge Plan
Departure
Patient Disposition: Admit
Date of Disposition: 03/30/25
Time of Disposition: 15:26
Presentation/result/management discussed w/ accepting MD/DO: Hospitalist
Discharge Problem:
Syncope, Dehydration
Interventions
Interventions:
*Risk Screen - Suicide Last Done: 03/30/25 12:59
*Neglect/Abuse Screening Last Done: 03/30/25 13:42
*ED COVID-19 Vaccine History Last Done: 03/30/25 18:20
*Nursing Disposition Last Done: 03/30/25 17:59
ED- Cardiac Assessment Last Done: 03/30/25 13:42
ED- Neurological Assessment Last Done: 03/30/25 13:42
Discharge Date and Time
Discharge Date/Time: 03/30/25 18:00
[2025-03-30 14:25] LABS: APTT 34.3 Sec (23.4-35.0)
[2025-03-30 14:30] LABS: Troponin I 0.101 ng/ml
[2025-03-30] MEDS: NSS 500 IV ×2 (14:30→15:38)
--- NOTE | 2025-03-30 15:34 | HPS.HSE ---
Family Physician
-
Family Physician: Bradford Benjamin
Chief Complaint
-
syncopal episode
History of Present Illness
Patient is a 65-year-old male with past medical history significant for hypertension, hypercholesterolemia, type 2 diabetes and CAD who presented to [facility] ED for evaluation of syncopal episode. Patient is s/p CABG with Dr. Courtney on 03/23/2025. Patient
reports that he was going to the bathroom this morning when he had an acute syncopal episode. He stated he was urinating and then woke up on floor. He explains that after discharge home he felt well and Sunday and Sunday he
started with diarrhea (watery) and emesis (fluids), felt somewhat better Sunday but again this morning diarrhea and emesis episodes. Patient says he was urinating at time of syncopal episode and reports he may have felt slightly dizzy before he
passed out. He reports since Sunday he feels he has needed to utilize wall for balance when urinating for lightheadedness. He denies any preceding chest pain, shortness of breath or palpitations before syncopal episode today. He does indicate he
hit head on bathtub with laceration on occipital area of scalp.
Medical History
Past Medical History
Past Medical History: Reports Other
Additional Past Medical History:
hypertension
hypercholesterolemia
type 2 diabetes
CAD
Past Surgical History: Reports Other
Additional Past Surgical History:
trigger finger release
cardiac cath x2 stents 02/09/2025
RA [facility]- [facility] (Dr. Courtney) 03/23/25
Social History
Tobacco: Non-smoker
Alcohol: Occasional
Drug: None
Personal:
Living: With Family
Family History
Family History: Not pertinent
Allergies / Home Medications
Allergies reflects when Allergies were last updated in [employer].
Home Medications with original date entered in [employer]
Allergy/Medication List:
Allergies
Allergy/AdvReac Type Severity Reaction Status Date / Time
metformin Allergy Unknown Verified 03/30/25 12:59
Home Medications
aspirin 81 mg tablet 81 mg PO DAILY Blood Clot Prevention/Tx 02/09/25
atorvastatin 80 mg tablet 80 mg PO DAILY High Cholesterol 02/09/25
insulin aspart U-100 100 unit/mL subcutaneous solution (Novolog U-100 Insulin aspart) 1 sliding scale dose SC AC Diabetes 02/09/25
semaglutide 0.25 mg or 0.5 mg (2 mg/3 mL) subcutaneous pen injector (Ozempic) 0.25 mg SC FR Diabetes 03/05/25
ezetimibe 10 mg tablet 10 mg PO DAILY High cholesterol #30 tabs 03/25/25
carvedilol 3.125 mg tablet 3.125 mg PO BID Heart Disease/Condition 03/26/25
dapagliflozin propanediol 10 mg tablet (Farxiga) 10 mg PO DAILY Diabetes 03/26/25
gabapentin 100 mg capsule 100 mg PO TID post-op nerve pain #30 caps 03/26/25
insulin degludec 100 unit/mL (3 mL) subcutaneous pen (Tresiba FlexTouch U-100 insulin) 78 unit (0.78 mL) SC DAILY Diabetes #15 mL 03/26/25
losartan 25 mg tablet 25 mg PO DAILY Blood pressure #30 tabs 03/26/25
oxycodone 5 mg tablet 5 mg PO Q4HPRN PRN severe pain #10 tabs 03/26/25
pantoprazole 40 mg tablet,delayed release 40 mg PO DAILY GI prophylaxis whjil on Brilinta #30 tabs 03/26/25
tamsulosin 0.4 mg capsule 0.4 mg PO HS Urinary issue #30 caps 03/26/25
ticagrelor 90 mg tablet (Brilinta) 90 mg PO BID Heart Disease/Condition 03/26/25
Review of Systems
-
History Source: Patient
Constitutional: Reports Chills; Denies Fever
EENT: Denies Sore Throat
Respiratory: Denies Cough or Trouble Breathing
Cardiac: Reports Syncope; Denies Chest Pain, Diaphoresis or Palpitations
Abdomen/GI: Reports Nausea, Vomiting, Diarrhea and Other (poor appetite); Denies Abdominal Pain, Constipated, Bloody Stools or Black Stools
: Denies Dysuria, Frequency, Difficulty Voiding or Urgency
Musculoskeletal: Denies Joint Pain, Muscle Pain or Edema
Skin: Denies Rash
Neurological: Reports Dizzy; Denies Headache, Weakness or Numbness
Endocrine: Denies Polyuria or Polydipsia
Hematologic/Lymphatic: Denies Bleeding
Physical Exam
Vital Signs
Vital Signs
Temp Pulse Resp BP Pulse Ox
98.2 F 75 16 123/61 97
03/30/25 13:00 03/30/25 14:15 03/30/25 14:15 03/30/25 14:00 03/30/25 14:23
Physical Exam
General: Well Developed, Well Nourished, No Apparent Distress, Comfortable, Conversant and Obese
HEENT: NormoCephalic, Moist mucous membranes, Atraumatic and Other (approximately 3 cm horizontal laceration on posterior scalp (occipital area))
Respiratory: Clear and Non Labored Respirations
Cardiac: S1/S2 and Regular Rhythm; No Murmur, Rub or Gallop
Breast: Deferred by me
GI: Soft, Non Tender, Non Distended and Normal Bowel Sounds; No Organomegaly
Rectal: Deferred by Provider
Genito-urinary: Deferred by me
Musculoskeletal: No Clubbing, No Cyanosis and No Edema
Skin: Warm, IV/Catheter Site and Other (approximately 3 cm horizontal laceration on posterior scalp (occipital area)); No Rash
Neuro: Nonfocal/grossly intact
Hematologic/Lymphatic: No Lymphadenopathy
Psych: Calm and Intact Judgment/Insight
Laboratory Results
-
03/30/25 13:53
03/30/25 13:53
Laboratory Results
APTT 34.3 Sec (23.4-35.0) 03/30/25 13:53
Total Bilirubin 2.2 mg/dl (0.2-1.3) H 03/30/25 13:53
AST 35 U/L (17-59) 03/30/25 13:53
ALT 38 U/L (0-50) 03/30/25 13:53
Alkaline Phosphatase 58 U/L (38-126) 03/30/25 13:53
Troponin I 0.101 ng/ml H* 03/30/25 13:53
Data Reviewed
-
CT Scan: Report Reviewed by me (Head: 1. ACUTE SCALP SOFT TISSUE HEMATOMA and small laceration in the posterior midline overlying the occipital bone. 2. No CT evidence for acute intracranial hemorrhage or calvarial fracture. 3. Mild diffuse
cerebral and cerebellar volume loss. 4. Mild periventricular white matter leukoarai)
Medical Tests (Nuc Med, Echo, EKG etc): Report Reviewed by me (EKG: NORMAL SINUS RHYTHM ST ELEVATION, CONSIDER EARLY REPOLARIZATION, PERICARDITIS, OR INJURY T WAVE ABNORMALITY, CONSIDER INFERIOR ISCHEMIA)
Lab Data: Labs Reviewed by me (WBC 16.0, Neut 80.6, Na+ 133, Tot Bili 2.2, trop 0.101)
Impression/Plan
-
IMPRESSION/PLAN:
#syncopal episode likely 2/2 hypovolemia
reports 2 days diarrhea with nausea and vomiting
WBC 16.0, Neut 80.6, Na+ 133, Tot Bili 2.2, trop 0.101
EKG: NORMAL SINUS RHYTHM
ST ELEVATION, CONSIDER EARLY REPOLARIZATION, PERICARDITIS, OR INJURY
T WAVE ABNORMALITY, CONSIDER INFERIOR ISCHEMIA
Head CT: 1. ACUTE SCALP SOFT TISSUE HEMATOMA and small laceration in the posterior midline overlying the occipital bone.
2. No CT evidence for acute intracranial hemorrhage or calvarial fracture.
3. Mild diffuse cerebral and cerebellar volume loss.
4. Mild periventricular white matter leukoaraiosis.
stool studies pending
- Admit to telemetry for observation
- IVF 80cc/hr NSS
- orthostatic VS
- Consult PT/OT
#hypertension
- continue losartan
#hypercholesterolemia
- continue atorvastatin and ezetimibe
#type 2 diabetes
- AccuCheck AC & HS
- SSI
- continue Tresiba and Ozempic
#CAD
s/p CABG 03/23/2025
- continue aspirin, carvedilol and ticagrelor
Code status: full code
DVT prophylaxis: lovenox sq
[2025-03-30] MEDS: ADACEL 0.5 ML IM (15:36)
--- NOTE | 2025-03-30 17:13 | W.PN.UPDATE ---
Update Note
Progress Note Update
I saw and examined the patient.
The DIRECTOR [employer] Yoni's note was reviewed and I agree with the note.
Comment: 65 y/o M with hx of CABG last week presents to ER with dizziness, syncope. HE reports discharge and feeling well until Sunday. He developed nausea and loose stools after a normal BM. He vomited once. He passed out in bathroom and
woke up on floor. Reports dizziness. He contacted CT Surgery who recommended stopping ARB. Symptoms persisted prompting ER evaluation today. He received IVF in ER with improvement in dizziness. CT head showed acute scalp hematoma stapled in ER.
Exam:
General: Well Developed, Well Nourished, No Apparent Distress, Comfortable, Conversant and Obese
HEENT: Normocephalic, Moist mucous membranes, Atraumatic and Other (approximately 3 cm horizontal laceration on posterior scalp (occipital area))
Respiratory: Clear and Non Labored Respirations
Cardiac: S1/S2 and Regular Rhythm; No Murmur, Rub or Gallop. Surgical sites C/D/I.
Breast: Deferred by me
GI: Soft, Non Tender, Non Distended and Normal Bowel Sounds; No Organomegaly
Rectal: Deferred by Provider
Genito-urinary: Deferred by me
Musculoskeletal: No Clubbing, No Cyanosis and No Edema
Skin: Warm, IV/Catheter Site and Other (approximately 3 cm horizontal laceration on posterior scalp (occipital area)); No Rash
Neuro: Nonfocal/grossly intact
Hematologic/Lymphatic: No Lymphadenopathy
Psych: Calm and Intact Judgment/Insight
Plan: check stool studies. Could also be overflow diarrhea since he reports no solid BM for 7 days leading up to discharge. IVF. OBS. Tele. PT/OT. Orthostatic VS. holding Losartan as suggested by CT surgery prior to admission.
--- NOTE | 2025-03-30 18:00 | CM ---
CM reviewed chart and met with pt and his bedside in ED. Pt lives with in split level home, 5 [address], 6 steps inside to bedroom and full bath.
Independent in ADLs, personal care and ambulation at baseline, no assistive device. Pt recently discharged after CABG.
OBS form reviewed and signed by his .
Confirms prescription coverage.
Current with [facility], ? cardiovascular transitional care nurse, no hx SNF
PCP: Bradford Benjamin
[facility] [place]
CM will continue to follow for all discharge planning needs.
--- NOTE | 2025-03-30 18:05 | PTCARENOTE ---
Pt received from ED at 1804 via stretcher.
[2025-03-30 18:29] LABS: Glucose - Point of Care 93 mg/dl (70-99)
[2025-03-30] MEDS: TYLENOL 650 MG PO (18:52)
[2025-03-30] MEDS: NSS 1000 IV (19:17)
[2025-03-30] MEDS: BRILINTA 90 MG PO (21:14)
[2025-03-30] MEDS: COREG 3.125 MG PO (21:14)
[2025-03-30] MEDS: LOVENOX 40 MG SC (21:15)
[2025-03-30] MEDS: NEURONTIN 100 MG PO (21:16)
[2025-03-31] VITALS (9 sets, daily range): BP systolic 102–160; BP diastolic 58–89; PULSE 78–88; O2SAT 96
[2025-03-31 02:37] LABS: Glucose - Point of Care 62 mg/dl (70-99)
[2025-03-31 03:04] LABS: Glucose - Point of Care 97 mg/dl (70-99)
[2025-03-31 05:06] LABS: Glucose - Point of Care 91 mg/dl (70-99)
[2025-03-31] MEDS: NSS 1000 IV ×2 (07:05→23:58)
[2025-03-31 07:14] LABS: Glucose - Point of Care 75 mg/dl (70-99)
--- NOTE | 2025-03-31 07:35 | W.PN.HOSP.TC ---
Today's Communication/Plan
-
Acucheck glucose AC and HS
If oral intake won't improve decrease Insulin Glargine 78U to 60U
Hold Ozempic
Continue supportive care
Assessment / Plan
Assessment / Plan
Assessment
65-year-old male s/p CABG on 03/24/2025 presented yesterday to ED with episode of syncope while urinating. She woke up on the floor and hit his head. He has been vomiting and having diarrhea since discharge from the hospital. He resumed taking
Ozempic on Sunday.
#syncopal episode
#Head injury
Likely from hypovolemia- Since sunday he had nausea, vomiting and diarrhea
He resumed using Ozempic the same day 0.25mg SQ
Leukocytosis
Troponin 0.101- elevated
Total bilirubin 2.2- elevated
EKG
-Normal sinus rhythm
-ST elevation, consider early repolarization, pericarditis, or injury
- T wave abnormality, consider inferior ischemia
Head CT:
1. ACUTE SCALP SOFT TISSUE HEMATOMA and small laceration in the posterior midline overlying the occipital bone.
2. No CT evidence for acute intracranial hemorrhage or calvarial fracture.
3. Mild diffuse cerebral and cerebellar volume loss.
4. Mild periventricular white matter leukoaraiosis.
stool studies
- negative for C.diff
- pending
- Admit to telemetry
- Continue 0.9% NS 80ml/hr
- orthostatics normal
- Consult PT/OT
#CAD
s/p CABG 03/23/2025
- continue aspirin, carvedilol and ticagrelor
#hypertension
- BP normotensive- hold losartan
#hypercholesterolemia
- continue atorvastatin and ezetimibe
#type 2 diabetes
-Discontinue Ozempic
- Continue Glargine 78U-- if hypoglycemia continues with increased oral intake- decrease glargine to 60U
- Accucheck & HS
#BPH
-Continue Tamsulosin
-Monitor BP
Anticipated Discharge: 24 - 48 hours
Subjective/Interval History
-
Date of Service: March 31, 2025
Today he feels tired, has some general weakness. He has a headache especially worse with moving towards sides. He did not eat food since breakfast from yesterday. He denies nausea, vomiting, diarrhea. He does not have any chest pain, palpitations
or dizziness.
Objective Data
-
Labs:
Laboratory Results
03/31/25
06:00
WBC Pending
Hgb Pending
Hct Pending
Plt Count Pending
Sodium Pending
Potassium Pending
Chloride Pending
Carbon Dioxide Pending
BUN Pending
Creatinine Pending
Glucose Pending
Calcium Pending
Vital Signs:
Vital Signs
Temp Pulse Resp BP Pulse Ox
98.8 F 81 18 160/89 96
03/31/25 07:15 03/31/25 07:15 03/31/25 07:15 03/31/25 07:15 03/31/25 07:15
I&O
03/30/25 03/31/25 04/01/25
06:59 06:59 06:59
Intake Total 505 / 505
Output Total 760 / 760
Balance -255 / -255
Review of Systems
-
History Source: Patient
Constitutional: Reports Weakness
EENT: Reports No Symptoms Reported
Respiratory: Reports No Symptoms
Cardiac: Reports No Symptoms
Abdomen/GI: Reports No Symptoms
Breast: Reports No Symptoms
Genitourinary: Reports No Symptoms
Musculoskeletal: Reports No Symptoms
Skin: Reports Other (Occipital lobe laceration- stitches)
Neuro: Reports Headache and Weakness (general)
Endocrine: Reports No Symptoms
Hematologic / Lymphatic: Reports No Symptoms
Physical Exam
-
General: Well Developed, Well Nourished and Appears in Distress
HEENT: Normocephalic and Other (head trauma- occipital head stitches)
Respiratory: Clear to Auscultation
Cardiac: Regular Rhythm and S1/S2
Breast: Deferred by me
GI: Soft, Nontender, Nondistended and Normal Bowel Sounds
Musculoskeletal: No Clubbing, No Cyanosis and No Edema
Skin: Warm and Dry
Neuro: AO x 3 and No Motor Deficits
Psych: Calm
[2025-03-31] MEDS: LIPITOR 80 MG PO (08:01)
[2025-03-31] MEDS: ZETIA 10 MG PO (08:01)
[2025-03-31] MEDS: LANTUS 0.78 UNITS SC (08:01)
[2025-03-31] MEDS: NEURONTIN 100 MG PO ×3 (08:02→20:53)
[2025-03-31] MEDS: FARXIGA 10 MG PO (08:02)
[2025-03-31] MEDS: PROTONIX 40 MG PO (08:02)
[2025-03-31] MEDS: BRILINTA 90 MG PO ×2 (08:02→20:52)
[2025-03-31] MEDS: LOW STRENGTH ASPIRIN 81 MG PO (08:02)
[2025-03-31] MEDS: COREG 3.125 MG PO ×2 (08:02→20:53)
[2025-03-31 09:27] LABS: Hematocrit 35.1 % (39.0-52.0); Hemoglobin 11.7 g/dL (13.0-18.0); Mean Corp Hgb Conc. 33.3 g/dL (33.0-37.0); Mean Corpuscular Volume 85.8 fL (80.0-94.0); Platelet Count 327 10^3/uL (130-400); Red Cell Dist. Width 14.1 % (11.5-14.5)
[2025-03-31 09:52] LABS: Blood Urea Nitrogen 13 mg/dl (9-20); Calcium 8.3 mg/dl (8.4-10.2); Carbon Dioxide 19 mmol/L (22-30); Chloride 106 mmol/L (98-107); Estimated Creatinine Clearance 84 ml/min; Glucose 66 mg/dl (70-99); Potassium 3.9 mmol/L (3.5-5.1); Sodium 133 mmol/L (135-145); eGFR > 60.00
[2025-03-31 12:28] LABS: Glucose - Point of Care 86 mg/dl (70-99)
[2025-03-31 17:09] LABS: Glucose - Point of Care 99 mg/dl (70-99)
[2025-03-31] MEDS: LOVENOX 40 MG SC (17:45)
[2025-03-31 21:17] LABS: Glucose - Point of Care 114 mg/dl (70-99)
[2025-04-01 03:00] VITALS: BP 148/79; BMI 33.5
[2025-04-01 03:00] LABS: Glucose - Point of Care 70 mg/dl (70-99)
--- NOTE | 2025-04-01 04:48 | PTCARENOTE ---
0400 pt with 6 episodes of small amt of diarrhea. AD SETTER notified and will review chart.
[2025-04-01 05:02] LABS: Glucose - Point of Care 76 mg/dl (70-99)
[2025-04-01 06:00] VITALS: BMI 33.5
[2025-04-01 06:58] LABS: Glucose - Point of Care 69 mg/dl (70-99)
[2025-04-01 07:12] VITALS: BP 162/85
[2025-04-01 07:17] LABS: Glucose - Point of Care 85 mg/dl (70-99)
--- NOTE | 2025-04-01 07:20 | W.PN.HOSP.TC ---
Today's Communication/Plan
-
Manual BP check while sitting
Decrease Insulin Glargine to 60U
Monitor Glucose
Potential discharge today
Assessment / Plan
Assessment / Plan
Assessment
65-year-old male s/p CABG on 03/24/2025 presented yesterday to ED with episode of syncope while urinating. She woke up on the floor and hit his head. He has been vomiting and having diarrhea since discharge from the hospital. He resumed taking
Ozempic on Sunday after holding it for 2 weeks.
#syncopal episode
#Head injury
Likely from hypovolemia- Since sunday he had nausea, vomiting and diarrhea
He resumed using Ozempic the same day 0.25mg SQ
Leukocytosis
Troponin 0.101- elevated
Total bilirubin 2.2- elevated
EKG
-Normal sinus rhythm
-ST elevation, consider early repolarization, pericarditis, or injury
- T wave abnormality, consider inferior ischemia
Head CT:
1. ACUTE SCALP SOFT TISSUE HEMATOMA and small laceration in the posterior midline overlying the occipital bone.
2. No CT evidence for acute intracranial hemorrhage or calvarial fracture.
3. Mild diffuse cerebral and cerebellar volume loss.
4. Mild periventricular white matter leukoaraiosis.
stool studies
- negative for C.diff
- Salmonella, shigella - pending
- Admit to telemetry
- Continue 0.9% NS 80ml/hr
- orthostatics hypotension- recheck- no orthostasis noted
- Consult PT/OT
- OT- recs pt f/u with cardiac rehab as previously planned s/p [facility] 03/23/25
#Diarrhea
-yellow, loose bm's x6 since last night
-Start Imodium 2mg
-stool cultures- pending
-Supportive care
#CAD
s/p CABG 03/23/2025
- continue aspirin, carvedilol and ticagrelor
#hypertension
- hold losartan for now
- Blood pressure 162/85-- recheck manual BP while sitting see if SBP<140 - >hold losartan
#hypercholesterolemia
- continue atorvastatin and ezetimibe
#type 2 diabetes
-Discontinue Ozempic
- Continue Insulin Glargine
- Accucheck & HS
#hypoglycemia
- for 2 nights his glucose dropped twice <70. Changed insulin glargine dose from 78 to 60U
-hold short acting insulin
-monitor glucose
#BPH
-Continue Tamsulosin
-Monitor BP
Anticipated Discharge: Within 24 hours
Subjective/Interval History
-
Date of Service: April 01, 2025
He had 6 yellow small amount but frequent loose bowel movements since yesterday. He denies nausea, vomiting. His appetite is slightly better. He was able to eat most of his daily 3 meals. He had hamburger, fries last night for dinner. He reports
swtopping Ozempic for 2 weeks because of surgery then resuming at the same dose 0.25mg
Objective Data
-
Labs:
Laboratory Results
04/01/25
07:00
WBC Pending
Hgb Pending
Hct Pending
Plt Count Pending
Sodium Pending
Potassium Pending
Chloride Pending
Carbon Dioxide Pending
BUN Pending
Creatinine Pending
Glucose Pending
Calcium Pending
Vital Signs:
Vital Signs
Temp Pulse Resp BP Pulse Ox
98.4 F 79 16 148/79 96
04/01/25 03:00 04/01/25 03:00 04/01/25 03:00 04/01/25 03:00 04/01/25 03:00
I&O
03/31/25 04/01/25 04/02/25
06:59 06:59 06:59
Intake Total 505 / 505 1680 / 1680 960 / 960
Output Total 760 / 760
Balance -255 / -255 0 / 0 960 / 960
Review of Systems
-
History Source: Patient
Constitutional: Reports Weakness
EENT: Reports No Symptoms Reported
Respiratory: Reports No Symptoms
Cardiac: Reports No Symptoms
Abdomen/GI: Reports Diarrhea
Breast: Reports No Symptoms
Genitourinary: Reports No Symptoms
Musculoskeletal: Reports No Symptoms
Skin: Reports Other (Occipital lobe laceration- stitches)
Neuro: Reports Headache
Endocrine: Reports No Symptoms
Hematologic / Lymphatic: Reports No Symptoms
Physical Exam
-
General: Well Developed, Well Nourished and No Apparent Distress
HEENT: Normocephalic and Other (head trauma- occipital head stitches)
Respiratory: Clear to Auscultation
Cardiac: Regular Rhythm and S1/S2
Breast: Deferred by me
GI: Soft, Nontender, Nondistended and Normal Bowel Sounds
Musculoskeletal: No Clubbing, No Cyanosis and No Edema
Skin: Warm and Dry
Neuro: AO x 3 and No Motor Deficits
Psych: Calm
[2025-04-01 07:22] LABS: Hematocrit 34.3 % (39.0-52.0); Hemoglobin 11.3 g/dL (13.0-18.0); Mean Corp Hgb Conc. 32.9 g/dL (33.0-37.0); Mean Corpuscular Volume 86.8 fL (80.0-94.0); Platelet Count 310 10^3/uL (130-400); Red Cell Dist. Width 14.1 % (11.5-14.5)
[2025-04-01] MEDS: ZETIA 10 MG PO (08:25)
[2025-04-01] MEDS: FARXIGA 10 MG PO (08:25)
[2025-04-01] MEDS: LOW STRENGTH ASPIRIN 81 MG PO (08:25)
[2025-04-01] MEDS: NEURONTIN 100 MG PO (08:25)
[2025-04-01] MEDS: COREG 3.125 MG PO (08:26)
[2025-04-01] MEDS: LIPITOR 80 MG PO (08:26)
[2025-04-01] MEDS: PROTONIX 40 MG PO (08:27)
[2025-04-01] MEDS: BRILINTA 90 MG PO (08:27)
[2025-04-01] MEDS: LANTUS 0.6 UNITS SC (08:28)
[2025-04-01 09:24] LABS: Blood Urea Nitrogen 12 mg/dl (9-20); Calcium 8.2 mg/dl (8.4-10.2); Carbon Dioxide 22 mmol/L (22-30); Chloride 106 mmol/L (98-107); Estimated Creatinine Clearance 77 ml/min; Glucose 57 mg/dl (70-99); Potassium 3.7 mmol/L (3.5-5.1); Sodium 134 mmol/L (135-145); eGFR > 60.00
[2025-04-01 10:00] LABS: Glucose - Point of Care 71 mg/dl (70-99)
[2025-04-01 11:16] VITALS: BP 130/63
[2025-04-01] MEDS: IMODIUM LIQUID 4 MG PO (11:28)
[2025-04-01] MEDS: NSS 1000 IV (11:29)
[2025-04-01 12:02] LABS: Glucose - Point of Care 90 mg/dl (70-99)
--- NOTE | 2025-04-01 14:03 | CM ---
Met with patient and at bedside
states current with [facility]
Notified liaison
OBS status
PLAN: [facility] when stable
[2025-04-01 14:40] VITALS: BP 138/78
[2025-04-01 15:08] VITALS: BP 138/78
[2025-04-01 15:37] LABS: Glucose - Point of Care 94 mg/dl (70-99)
--- NOTE | 2025-04-01 16:23 | W.DCSUMMARY ---
Discharge Summary
Discharge Data
Date of Admission: 03/30/25
Date of Discharge: 04/01/25
-
Pending Results: Yes
Additional Pending Results:
Stool Culture for Salmonella, Shigella, Campylobacter and E.coli
Hospital Course
Discharging Physician : Dr. Fox Preston, Dr. Landon Taylor
Disposition : Home
Primary care physician : Bradford Benjamin
Principal Discharge diagnosis : Syncopal episode, head injury
Chronic Discharge diagnosis :
CAD
Hypertension
Hypercholesterolemia
Type 2 Diabetes
BPH
Hospital Course :
65-year-old male with PMH significant for hypertension, hypercholesterolemia, type 2 diabetes and CAD presented to ED for evaluation of syncopal episode. Patient had CABG with Dr. Courtney on 03/23/2024. He reports going to the bathroom on the
03/30/2025 when he had an acute syncopal episode. He was urinating and then woke up on the floor. He hit his head and had a laceration on the back of his head. After discharge from CABG he resumed Ozempic and tamsulosin. He has been vomiting and
having diarrhea since then. At the ED his laceration was closed with 8 stitches. After admission, his short acting insulin were discontinued, basal insulin was continued. He had hypoglycemia at night his glargine was decreased to 60 units. He
received supportive care for hypovolemia. Losartan was held because of loose stools and orthostasis. Stool culture was negative for C. difficile.
Stop using Ozempic
Follow up with [facility] for Diabetes management
Follow-up with your PCP within a week
See PCP for removal of Scalp sutures within 7-10 days
Encourage compression stockings, consider abdomen binder if symptoms recur
Stool culture for Salmonella Shigella pending
Important imaging findings :
EKG
-Normal sinus rhythm
-ST elevation, consider early repolarization, pericarditis, or injury
-T wave abnormality, consider inferior ischemia
Head CT w/o contrast
1. ACUTE SCALP SOFT TISSUE HEMATOMA and small laceration in the posterior midline overlying the occipital bone.
2. No CT evidence for acute intracranial hemorrhage or calvarial fracture.
3. Mild diffuse cerebral and cerebellar volume loss.
4. Mild periventricular white matter leukoaraiosis.
Procedure findings : Scalp laceration closed with 8 [place]
Discharge Plan
-
Patient Disposition: Home (Routine Discharge)
Discharge Diagnosis/Procedures: Episode of syncope
Head injury
CAD
Hypertension
Hypercholesterolemia
Type 2 Diabetes
BPH
Condition: Good
Diet: Low Cholesterol and Low Sodium
Activity: As tolerated
Driving Restrictions: As prior to admission
Bathing Restrictions: None
Referrals:
Bradford Benjamin MD [Family Provider, [facility]]
Additional Discharge Medication Instructions: Stop using Ozempic
Hold Losartan until seen by PCP
See PCP for removal of Scalp sutures within 7-10 days
Follow up with PCP within a week
Follow up with [facility] for Diabetes management
insulin Lantus dose was changed to 60U because you had low glucose level at night time.
Stopped pre-meal insulin for now follow up with your PCP
Monitor your glucose levels at home if glucose consistently above 200 see your PCP or [facility]
If lightheadedness like symptoms recur use compression stockings, consider abdomen binder
Stool culture is still pending
Prescriptions:
New
loperamide 2 mg Capsule
2 mg PO Q4HPRN PRN (Reason: loose stools) Qty: 10 0RF
Insulin Glargine Lantus [Lantus] 60 UNITS
Subcutaneous Insulin Syringe [Syringe-Insulin] 0 UNIT
As Directed mls/hr SC DAILY
Ordered By: Fox Preston MD, Resident
Last Taken: 04/01/25 08:28 0.6 mls
Continued
atorvastatin 80 mg Tablet
80 mg PO DAILY
aspirin 81 mg Tablet
81 mg PO DAILY
ezetimibe 10 mg Tablet
10 mg PO DAILY Qty: 30 5RF
tamsulosin 0.4 mg Capsule
0.4 mg PO HS Qty: 30 2RF
pantoprazole 40 mg Tablet,Delayed Release (Dr/Ec)
40 mg PO DAILY Qty: 30 2RF
carvedilol 3.125 mg tablet
3.125 mg PO BID
ticagrelor [Brilinta] 90 mg tablet
90 mg PO BID
dapagliflozin propanediol [Farxiga] 10 mg tablet
10 mg PO DAILY
gabapentin 100 mg Capsule
100 mg PO TID Qty: 30 0RF
oxycodone 5 mg Tablet
5 mg PO Q4HPRN PRN (Reason: severe pain) Qty: 10 0RF
Held
insulin aspart U-100 [Novolog U-100 Insulin aspart] 100 unit/mL Solution
1 sliding scale dose SC AC
Hold Instructions: Until seen by PCP
Rx Instructions:
14units for breakfast, 14units lunch, 26units diner
losartan 25 mg Tablet
25 mg PO DAILY Qty: 30 5RF
Hold Instructions: Until seen by PCP hold BP med
insulin degludec [Tresiba FlexTouch U-100] 100 unit/mL (3 mL) Insulin Pen
78 unit SC DAILY Qty: 15 0RF
Hold Instructions: until seen by pcp currently hypoglycemic with that level
Discontinued
Ozempic 0.25 mg or 0.5 mg (2 mg/3 mL) Pen Injector
0.25 mg SC FR
Rx Instructions:
Takes every Sunday
Discharge Orders:
Discharge Patient (As Directed); Ordered 04/01/25
Ordered By: Fox Preston
Discharge Date and Time
Print Language: LIBERIAN
== END 2025-04-01 17:21 | disposition home health service (06) ==
LOC: 3 WEST ACU 16:57
PROVIDERS: Nurse Practitioner Family; ADMITTING PHYSICIAN Internal Medicine; ATTENDING PHYSICIAN Internal Medicine; EMERGENCY PHYSICIAN Emergency Medicine; FAMILY PHYSICIAN Family Medicine
DX: R55 Syncope and collapse (principal); D72.829 Elevated white blood cell count, unspecified; E11.649 Type 2 diabetes mellitus with hypoglycemia without coma; E78.00 Pure hypercholesterolemia, unspecified; E86.0 Dehydration; E86.1 Hypovolemia; I10 Essential (primary) hypertension; I25.10 Atherosclerotic heart disease of native coronary artery without angina pectoris; N40.0 Benign prostatic hyperplasia without lower urinary tract symptoms; S01.01XA Laceration without foreign body of scalp, initial encounter; W18.30XA Fall on same level, unspecified, initial encounter; Z79.01 Long term (current) use of anticoagulants; Z79.02 Long term (current) use of antithrombotics/antiplatelets; Z79.4 Long term (current) use of insulin; Z79.84 Long term (current) use of oral hypoglycemic drugs
CPT/HCPCS: 12002; 70450; 80048; 80053; 82962; 83880; 84484; 85025; 85027; 85730; 86850; 86900; 86901; 87045; 87046; 87324; 87427; 87449; 87798; 90471; 90715; 93005; 96361; 97163; 97167; 99285; G0378

== ENCOUNTER 2025-05-13 17:54 | Outpatient (RCR) | payer OTHER, SELFPAY ==
[2025-04-20 10:03] LABS: Glucose - Point of Care 231 mg/dl (70-99)
[2025-04-20 10:49] LABS: Glucose - Point of Care 218 mg/dl (70-99)
[2025-04-21 11:45] LABS: HDL Cholesterol 34 mg/dl; LDL Cholesterol, Calculated 52 mg/dl; Very Low Density Lipoprotein 25 mg/dl (0-30)
[2025-04-27 17:38] LABS: Glucose - Point of Care 176 mg/dl (70-99)
[2025-04-27 18:35] LABS: Glucose - Point of Care 123 mg/dl (70-99)
[2025-04-29 17:43] LABS: Glucose - Point of Care 172 mg/dl (70-99)
[2025-04-29 18:28] LABS: Glucose - Point of Care 121 mg/dl (70-99)
[2025-05-01 17:19] LABS: Glucose - Point of Care 258 mg/dl (70-99)
[2025-05-01 18:12] LABS: Glucose - Point of Care 218 mg/dl (70-99)
[2025-05-06 17:33] LABS: Glucose - Point of Care 151 mg/dl (70-99)
[2025-05-06 18:29] LABS: Glucose - Point of Care 117 mg/dl (70-99)
[2025-05-08 17:22] LABS: Glucose - Point of Care 126 mg/dl (70-99)
[2025-05-08 18:15] LABS: Glucose - Point of Care 99 mg/dl (70-99)
[2025-05-11 17:37] LABS: Glucose - Point of Care 180 mg/dl (70-99)
[2025-05-11 18:29] LABS: Glucose - Point of Care 132 mg/dl (70-99)
[2025-05-13 17:53] LABS: Glucose - Point of Care 279 mg/dl (70-99)
[2025-05-13 18:39] LABS: Glucose - Point of Care 234 mg/dl (70-99)
== END 2025-05-13 23:59 | disposition home or self-care (01) ==
LOC: CRHB 17:54
PROVIDERS: ATTENDING PHYSICIAN Internal Medicine Cardiovascular Disease; FAMILY PHYSICIAN Family Medicine
DX: I25.10 Atherosclerotic heart disease of native coronary artery without angina pectoris (principal); Z95.1 Presence of aortocoronary bypass graft; Z95.5 Presence of coronary angioplasty implant and graft
CPT/HCPCS: 36415; 80061; 82962; G0422; G0423

== ENCOUNTER 2025-06-05 15:58 | Outpatient (RCR) | payer OTHER, SELFPAY ==
[2025-05-18 17:33] LABS: Glucose - Point of Care 137 mg/dl (70-99)
[2025-05-18 18:22] LABS: Glucose - Point of Care 207 mg/dl (70-99)
[2025-05-20 17:40] LABS: Glucose - Point of Care 247 mg/dl (70-99)
[2025-05-20 18:33] LABS: Glucose - Point of Care 194 mg/dl (70-99)
[2025-06-03 16:00] LABS: Glucose - Point of Care 161 mg/dl (70-99)
[2025-06-03 16:55] LABS: Glucose - Point of Care 101 mg/dl (70-99)
[2025-06-05 16:00] LABS: Glucose - Point of Care 237 mg/dl (70-99)
[2025-06-05 16:50] LABS: Glucose - Point of Care 187 mg/dl (70-99)
== END 2025-06-08 23:59 | disposition home or self-care (01) ==
LOC: CRHB 15:58
PROVIDERS: ATTENDING PHYSICIAN Internal Medicine Cardiovascular Disease; FAMILY PHYSICIAN Family Medicine
DX: I25.10 Atherosclerotic heart disease of native coronary artery without angina pectoris (principal); Z95.1 Presence of aortocoronary bypass graft; Z95.5 Presence of coronary angioplasty implant and graft
CPT/HCPCS: 82962; 93797; 93798; G0422; G0423

== ENCOUNTER 2025-06-29 16:23 | Outpatient (RCR) | payer OTHER, SELFPAY ==
[2025-06-15 15:58] LABS: Glucose - Point of Care 134 mg/dl (70-99)
[2025-06-15 16:54] LABS: Glucose - Point of Care 94 mg/dl (70-99)
[2025-06-15 17:10] LABS: Glucose - Point of Care 102 mg/dl (70-99)
[2025-06-17 16:04] LABS: Glucose - Point of Care 176 mg/dl (70-99)
[2025-06-17 16:58] LABS: Glucose - Point of Care 129 mg/dl (70-99)
[2025-06-22 16:15] LABS: Glucose - Point of Care 163 mg/dl (70-99)
[2025-06-22 17:06] LABS: Glucose - Point of Care 96 mg/dl (70-99)
[2025-06-24 16:01] LABS: Glucose - Point of Care 168 mg/dl (70-99)
[2025-06-24 17:01] LABS: Glucose - Point of Care 112 mg/dl (70-99)
[2025-06-26 16:22] LABS: Glucose - Point of Care 240 mg/dl (70-99)
[2025-06-26 17:06] LABS: Glucose - Point of Care 145 mg/dl (70-99)
[2025-06-29 16:03] LABS: Glucose - Point of Care 103 mg/dl (70-99)
[2025-06-29 16:54] LABS: Glucose - Point of Care 103 mg/dl (70-99)
== END 2025-06-29 23:59 | disposition home or self-care (01) ==
LOC: CRHB 16:23
PROVIDERS: ATTENDING PHYSICIAN Internal Medicine Cardiovascular Disease; FAMILY PHYSICIAN Family Medicine
DX: I25.10 Atherosclerotic heart disease of native coronary artery without angina pectoris (principal); Z95.1 Presence of aortocoronary bypass graft; Z95.5 Presence of coronary angioplasty implant and graft
CPT/HCPCS: 82962; G0422; G0423